=== PATIENT | male | born 1970 | race Caucasian/White ===

== ENCOUNTER 2017-07-30 20:26 | Inpatient (IN) | payer OTHER, SELFPAY ==
--- NOTE | 2017-07-30 22:50 | P.HP ---
Date of Service: 07/30/17 PC: This 46-year-old male went to the emergency room at another facility with severe abdominal pain for diagnosis and treatment. HPC: Patient noticed a lump today at his umbilicus. He was out picking up his granddaughter from school. Had an sudden onset of a bulge at his umbilicus which cause some excruciating pain. Went to the local emergency room. In the ER he was able to be reduced, but is diseased at the pop back out causing him increasing pain and discomfort. He was transferred to this facility as they did not have surgical capabilities at that time. Since then he has been relatively pain-free, the hernia has stayed in, and he is anxious to have it repaired. PMH: Hypertension PSHx: Previous rotator cuff muscle surgery SOC: No known allergies SYS REVIEW: No cough, wheeze, shortness of breath. No chest pain or palpitations. Good exercise tolerance. Says he can walk at least 2-3 miles. Denies any urinary complaints. No hesitancy or dribbling. O/E awake alert comfortable HEENT: Within normal limit Chest: Chest movement equal bilateral ABD: Soft nontender hernia is reduced at the moment. LOCO: Intact DATA: Within normal limits IMPRESSION: Umbilical hernia PLAN: I will take him to the operating room in the morning for a laparoscopic repair of his umbilical hernia with mesh. The risks of this procedure have been discussed. The possibility of bleeding, infection, injury to bowel and blood vessels has been described. The possibility of recurrence and need for further surgeries and procedures was discussed. Mesh infection and its removal were explained. He understands and wants to proceed.
[2017-07-30] MEDS ORDERED: ONDANSETRON 4 MG/2 ML VIAL IV PRN (22:53)
[2017-07-30] MEDS ORDERED: CHLORHEXIDINE GLUCO 4% 120 ML TOP SCH (23:00)
[2017-07-30] MEDS ORDERED: CEFAZOLIN/NS 1gm 1 GM/50 ML BAG IVPB SCH (23:00)
[2017-07-30] MEDS: Ringers Lactate 1,000 ML IV SCH (23:00)
[2017-07-31] MEDS: Ringers Lactate 1,000 ML IV SCH ×2 (03:43→07:00)
[2017-07-31] MEDS: MORPHINE 4 MG/ML SYR IV PRN ×4 (06:17→20:33)
[2017-07-31] MEDS ORDERED: CEFAZOLIN/SWI 1gm 1 GM/10 ML SYR ONE (09:23)
[2017-07-31] MEDS ORDERED: PROPOFOL 200 MG/20 ML VIAL IV ONE (09:57)
[2017-07-31] MEDS ORDERED: FENTANYL CITR 100 MCG/2 ML ONE ×2 (09:57→11:08)
[2017-07-31] MEDS ORDERED: ROCURONIUM 50 MG/5 ML VIAL IV ONE (09:57)
[2017-07-31] MEDS ORDERED: KETOROLAC 30 MG/ML INJ ONE (11:17)
[2017-07-31] MEDS ORDERED: DEXAMETHASONE 10 MG/ML VIAL ONE (11:18)
[2017-07-31] MEDS ORDERED: GLYCOPYRROLATE 0.2 MG/ML SYR ONE ×2 (11:18→11:25)
[2017-07-31] MEDS ORDERED: NEOSTIGMINE 1 MG/ML -5 ML SYRINGE ONE (11:25)
[2017-07-31] MEDS ORDERED: MEPERIDINE HCL 25 MG/0.5 ML ONE ×2 (12:06→12:53)
[2017-07-31] MEDS: MEPERIDINE HCL 50 MG/ML AMP ONE ×4 (12:20→12:44)
--- NOTE | 2017-07-31 12:30 | P.OP ---
Preoperative diagnosis: Incarcerated umbilical hernia Postoperative diagnosis: The same Primary procedure: Laparoscopic reduction repair of incarcerated umbilical hernia Secondary procedure: Repair with mesh Anesthesia: General Estimated blood loss: Less than 10 cc Operative Technique: The patient brought the operating room and placed supine on the table. After the induction of adequate general endotracheal anesthesia, the area of the abdomen was prepped with a DuraPrep solution, and he was draped in usual aseptic manner. A left upper quadrant skin incision was made 3 fingers breath below the costal margins. This brought down through the skin and subcutaneous tissue. Using the Visiport we able to enter the peritoneal cavity and created pneumoperitoneum to approximately 12 mm of mercury. Under direct vision a 5 mm trocar was placed in left lower quadrant. Attention was now turned towards the anterior abdominal wall. We could see a piece omentum that had gone into the hernia at the umbilicus. It was firm was stuck in place. Applying gentle traction and extra pressure we were able to reduce this back into the peritoneal cavity. At this point the hernia sac was also invagination into the peritoneal cavity and tacked to the anterior abdominal wall secure eaten placing keeping it reduced. A piece of 6 inch circular mesh was now marked and introduced to the peritoneal cavity. Stay sutures had been placed on the pulse. Using the Endo Close is allowed us to lift the mass to the anterior surface of the anterior abdominal wall. We were able to get good coverage ever hernial defect. The Tacker was then used to fix the mesh to the anterior abdominal wall. This was done by reducing the pressure of the intra-abdominal cavity to approximately 5 mm of Hg. Good coverage having been obtained, the 10 mm trocar was approximated using the Endo Close an absorbable suture. The suture was now tied, the pneumoperitoneum car collapse, and cat applied to the skin. At the end of the procedure he was stable when sent to the recovery room. Needle sponge instrument count were correct. No drains were placed. Complications: None Implants: 6 inches circular mesh Transferred to: Recovery Room Condition: Good
[2017-07-31] MEDS: HYDROCODONE/APAP 7.5/325 MG TAB PO PRN (21:35)
[2017-08-01] MEDS: HYDROCODONE/APAP 7.5/325 MG TAB PO PRN ×3 (02:26→10:21)
--- NOTE | 2017-08-01 10:59 | P.DS ---
Admission Date: 07/30/17 Discharge Date: 08/01/17 Disposition: ROUTINE DISCHARGE Discharge Condition: GOOD Reason for Admission: Abdominal pain Procedures: Laparoscopic reduction repair of incarcerated umbilical hernia with mesh Brief History of Present Illness: Patient presented another facility with severe abdominal pain and a mass in his umbilicus. It was reduced but quickly recurred after reduction. He was transferred to our facility for definitive care. Hospital Course: The patient was admitted to the hospital. After being observed and ensuring that his pain did not increase, he was brought to the operating room for laparoscopic reduction repair of this incarcerated umbilical hernia. He tolerated the procedure well and was admitted for postoperative pain control. Today he is up ambulating, tolerating a diet, and his pain is controlled on oral medication. He is deemed fit for discharge. Vital Signs/Physical Exam: Temp Pulse Resp BP Pulse Ox 98.2 F 65 16 124/69 97 08/01/17 08:00 08/01/17 08:00 08/01/17 08:00 08/01/17 08:00 08/01/17 08:00 Home Medications: Amlodipine Besylate/Benazepril [Amlodipine-Benazepril 5-20 mg] 1 each PO DAILY 07/31/17 Atorvastatin Calcium [Lipitor] 10 mg PO DAILY 07/31/17 Montelukast [Singulair] 10 mg PO DAILY 07/31/17 Followup: Sixto Tyson MD [ACTIVE - CAN ADMIT] - (follow up in office on Wednesday, August 06. Call office to schedule appointment.)
== END 2017-08-01 12:06 | disposition home or self-care (01) | DRG 355 ==
LOC: 4TH 20:58
PROVIDERS: ADMIT Surgery; ATTEND Surgery
PROC: 0WUF4JZ Supplement Abdominal Wall with Synthetic Substitute, Percutaneous Endoscopic Approach (ICD-10-PCS; principal; 2017-07-31 10:00)
DX: K42.0 Umbilical hernia with obstruction, without gangrene (principal); I10 Essential (primary) hypertension
CPT/HCPCS: J0690; J1100; J2175; J2710; J3010

== ENCOUNTER 2019-11-06 09:48 | Emergency (ER) | payer OTHER ==
--- OUTSIDE RECORDS SUMMARY | 2019-11-06 10:08 | XMS REPORT | Clinical Summary ---
:1970 Author Organization [facility] Address [address] [place] [address] Care Team Providers Name Role Phone Ryan Dunne Primary Care Provider Allergies No Known Allergies Medications Medication Sig Dispensed Refills Start Date End Date Status amLODIPine-benazepri Take 1 capsule 0 Active l (LOTREL 5-20) 5-20 by mouth every mg per capsule morning . atorvastatin Take 20 mg by 0 Act hannah (LIPITOR) 20 MG mouth daily. tablet pyrilamine-dextromet Take by mouth 0 Active horphan (CAPRON DMT) daily . 30-30 mg Tab metFORMIN Take 500 mg by 0 Activ e (GLUCOPHAGE) 500 MG mouth 2 (two) tablet times daily with breakfast and dinner. omeprazole Take 40 mg by 0 Activ e (PRILOSEC) 40 MG mouth 2 (two) capsuleIndications: times daily. an ulcer of the duodenum ondansetron Take 1 tablet 30 tablet 0 11/25/2018 Act hannah (ZOFRAN-ODT) 4 MG (4 mg total) disintegrating by mouth every tablet 8 (eight) hours as needed for Nausea. sucralfate Take 1 tablet 120 tablet 1 12/02/2018 Act hannah (CARAFATE) 1 gram (1 g total) by 0 tablet mouth 4 (four) times daily. viscous lidocaine 2% Swish and 100 mL 0 12/02/2018 Active (VISCOUS LIDOCAINE) swallow 10 mLs 2 % Soln mucosal every 6 (six) solution hours as needed (throat/esopha geal pain). buprenorphine HCl Place 150 mcg 0 11/24/19 1 Discontinued (BELBUCA) 150 mcg inside cheek 2 9 Film (two) times daily. HYDROcodone-acetamin Take 1 tablet 0 11/25 Discontinued ophen (NORCO 10-325) by mouth every 9 10-325 mg per tablet 6 (six) hours as needed for Pain. HYDROcodone-acetamin Take 1 tablet 15 tablet 0 11/25/201811/14 Discontinued ophen (NORCO 10-325) by mouth every 9 10-325 mg per tablet 6 (six) hours as needed for Pain. Max Daily Amount: 4 tablets viscous lidocaine 2% Swish and 100 mL 0 11/25/2018 12/03/19 1 Discontinued (VISCOUS LIDOCAINE) swallow 10 mLs 9 2 % Soln mucosal every 6 (six) solution hours as needed (throat/esopha geal pain). aluminum & magnesium Take 30 mLs by 355 mL 0 12/02/2018 Discontinued hydroxide-simethicon mouth every 6 9 e (MAALOX PLUS) (six) hours as 400-400-40 mg/5 mL needed for up suspension to 10 days. predniSONE Take 1 tablet 25 tablet 0 12/03/2018 Disc ontinued (DELTASONE) 20 MG (20 mg total) 9 tablet by mouth daily for 25 days. sucralfate Take 1 tablet 120 tablet 1 12/02/2018 Dis continued (CARAFATE) 1 gram (1 g total) by 9 tablet mouth 4 (four) times daily. traMADol (ULTRAM) 50 Take 1 tablet 30 tablet 0 12/02/201811/15 mg tablet (50 mg total) 9 by mouth every 6 (six) hours as needed for up to 10 days. Max Daily Amount: 200 mg calcium carbonate Take 2 tablets 90 tablet 0 12/02/2018 Discontinued (TUMS) 500 mg (1,000 mg 9 chewable tablet total) by mouth 3 (three) times daily as needed for up to 30 days. HYDROcodone-acetamin Take 1 tablet 20 tablet 0 12/02/201811/14 Discontinued ophen (NORCO 10-325) by mouth every 9 10-325 mg per tablet 6 (six) hours as needed for Pain. Max Daily Amount: 4 tablets aluminum & magnesium Take 30 mLs by 355 mL 0 12/02/2018 hydroxide-simethicon mouth every 6 9 e (MAALOX PLUS) (six) hours as 400-400-40 mg/5 mL needed for up suspension to 10 days. calcium carbonate Take 2 tablets 90 tablet 0 12/02/2018 (TUMS) 500 mg (1,000 mg 9 chewable tablet total) by mouth 3 (three) times daily as needed for up to 30 days. predniSONE Take 1 tablet 25 tablet 0 12/03/2018 Disc ontinued (DELTASONE) 20 MG (20 mg total) 9 tablet by mouth daily for 25 days. ondansetron Take 1 tablet 20 tablet 0 12/02/2018 Dis continued (ZOFRAN-ODT) 4 MG (4 mg total) 9 disintegrating by mouth every tablet 8 (eight) hours as needed for up to 7 days. predniSONE Take 1 tablet 25 tablet 0 12/03/2018 Expi red (DELTASONE) 20 MG (20 mg total) 9 tablet by mouth daily for 25 days Take 20 mg for 2 weeks followed by 10 mg for 2 weeks. HYDROcodone-acetamin Take 1 tablet 20 tablet 0 12/02/201811/14 ophen (NORCO by mouth every 9 7.5-325) 7.5-325 mg 6 (six) hours per tablet as needed for Pain for up to 7 days. Max Daily Amount: 4 tablets Active Problems Problem Noted Date Esophageal adenocarcinoma 11/24/2018 Encounters Date Type Specialty Care Team Description 01/04/2019 Refill Internal Medicine Renny Murguia MD 11/28/2018 [facility], Esophageal adenocarcinoma (HCC) (Primary Dx); - Encounter Medicine Elsie Dysphagia, unsp ecified type; 12/02/2018 MD Harsha Remy's esophagus with dysplasia; Stephanie Caro MD Odynophagia 11/24/2018 Anesthesia Event Gastroenterology Sonya Henson GRNA 11/24/2018 Surgery Gastroenterology [facility], UPPER [facility] ENDOSCOPY,SUB MUCOSAL MD Kenneth RESECTION 11/24/2018 [facility], Esophageal - Encounter Medicine [facility] adenocarcinom a (HCC) 11/25/2018 MD Shantal Cooper Fang-Ying, MD 11/24/2018 Travel 11/23/2018 Hospital Pre-Admission Testing Encounter after 11/05/2018 Social History Tobacco Use Types Packs/Day Years Used Date Former Smoker Quit: 03/25/19 14 Smokeless Tobacco: Former User Chew Q uit: 03/15/2013 Tobacco Cessation: Counseling Given: No Comments: quitted 2013 Alcohol Use Drinks/Week oz/Week Comments No Alcohol Habits Answer Date Recorded How often do you have a drink containing alcohol? Never 10/10/2018 How many drinks containing alcohol do you have on a typical Not asked day when you are drinking? How often do you have six or more drinks on one occasion? No t asked Sex Assigned at Date Recorded Not on file Job Start Date Occupation Industry Not on file Not on file Not on file Travel History Travel Start Travel End No recent travel history available. Last Filed Vital Signs Vital Sign Reading Time Taken Blood Pressure 167/90 12/02/2018 12:00 PM CDT Pulse 82 12/02/2018 12:00 PM CDT Temperature 36.6 C (97.8 F) 12/02/2018 12:00 PM CDT Respiratory Rate 18 12/02/2018 12:00 PM CDT Oxygen Saturation 96% 12/02/2018 12:00 PM CDT Inhaled Oxygen Concentration - - Weight 130.4 kg (287 lb 6.4 oz) 11/28/2018 5:1 4 PM CDT Height 185.4 cm (6' 1") 11/28/2018 5:14 PM CDT Body Mass Index 37.92 11/28/2018 5:14 PM CDT Plan of Treatment Not on file Procedures Procedure Name Priority Date/Time Associated Comments Diagnosis POCT-GLUCOSE METER Routine 12/01/2018 11:04 Resul ts for this PM CDT procedure are i n the results section. POCT-GLUCOSE METER Routine 12/01/2018 6:14 Resul ts for this PM CDT procedure are i n the results section. POCT-GLUCOSE METER Routine 12/01/2018 12:34 Resul ts for this PM CDT procedure are i n the results section. POCT-GLUCOSE METER Routine 12/01/2018 7:37 Resul ts for this AM CDT procedure are i n the results section. BASIC METABOLIC PANEL Routine 12/01/2018 5:42 Re sults for this (7) AM CDT procedure are i n the results section. POCT-GLUCOSE METER Routine 11/30/2018 8:21 Resul ts for this PM CDT procedure are i n the results section. POCT-GLUCOSE METER Routine 11/30/2018 1:00 Resul ts for this PM CDT procedure are i n the results section. CBC W/PLT COUNT & AUTO STAT 11/30/2018 10:32 R esults for this DIFFERENTIAL AM CDT procedure are i n the results section. COMPREHENSIVE STAT 11/30/2018 10:32 Results fo r this METABOLIC PANEL AM CDT procedure ar e in the results section. CBC W/PLT COUNT & AUTO STAT 11/30/2018 10:32 R esults for this DIFFERENTIAL AM CDT procedure are i n the results section. POCT-GLUCOSE METER Routine 11/30/2018 8:35 Resul ts for this AM CDT procedure are i n the results section. POCT-GLUCOSE METER Routine 11/29/2018 10:21 Resul ts for this PM CDT procedure are i n the results section. POCT-GLUCOSE METER Routine 11/29/2018 6:07 Resul ts for this AM CDT procedure are i n the results section. BASIC METABOLIC PANEL Routine 11/29/2018 5:21 Re sults for this (7) AM CDT procedure are i n the results section. URINALYSIS W/ REFLEX Routine 11/29/2018 12:40 Res ults for this URINE CULTURE AM CDT procedure are in the results section. BLOOD CULTURE Routine 11/28/2018 6:53 Results fo r this PM CDT procedure are i n the results section. BLOOD CULTURE Routine 11/28/2018 6:27 Results fo r this PM CDT procedure are i n the results section. CBC W/PLT COUNT & AUTO Routine 11/28/2018 6:26 R esults for this DIFFERENTIAL PM CDT procedure are i n the results section. LACTIC ACID, VENOUS Routine 11/28/2018 6:26 Resu lts for this PM CDT procedure are i n the results section. HEMOGLOBIN A1C Routine 11/28/2018 6:26 Results f or this PM CDT procedure are i n the results section. PT/APTT Routine 11/28/2018 6:26 Results for this PM CDT procedure are i n the results section. BASIC METABOLIC PANEL Routine 11/28/2018 6:26 Re sults for this (7) PM CDT procedure are i n the results section. CBC W/PLT COUNT & AUTO Routine 11/28/2018 6:26 R esults for this DIFFERENTIAL PM CDT procedure are i n the results section. XR CHEST 1 VIEW STAT 11/28/2018 6:02 Results for this PORTABLE/BEDSIDE PM CDT procedure a re in the results section. ECG 12-LEAD Routine 11/28/2018 5:36 Results for this PM CDT procedure are i n the results section. POCT-GLUCOSE METER Routine 11/25/2018 7:36 Resul ts for this AM CDT procedure are i n the results section. HEPATIC FUNCTION PANEL Routine 11/25/2018 5:03 R esults for this AM CDT procedure are i n the results section. BASIC METABOLIC PANEL Routine 11/25/2018 5:03 Re sults for this (7) AM CDT procedure are i n the results section. CBC (HEMOGRAM ONLY) Routine 11/25/2018 4:57 Resu lts for this AM CDT procedure are i n the results section. POCT-GLUCOSE METER Routine 11/24/2018 9:36 Resul ts for this PM CDT procedure are i n the results section. FL ESOPHAGUS PHARNYX STAT 11/24/2018 3:05 Res ults for this AND/OR CERVICAL PM CDT procedure ar e in the results section. REPORT OF PROCEDURE - 11/24/2018 11:58 ENDOSCOPY URL AM CDT POCT-GLUCOSE METER Routine 11/24/2018 11:55 Resul ts for this AM CDT procedure are i n the results section. TISSUE EXAM AP Routine 11/24/2018 11:34 Results for this AM CDT procedure are i n the results section. UPPER 11/24/2018 7:30 [facility] ENDOSCOPY,SUBMUCOSAL AM CDT esophagus with INJECTION dysplasia UPPER 11/24/2018 7:30 [facility] ENDOSCOPY,SUBMUCOSAL AM CDT esophagus with RESECTION dysplasia POCT-GLUCOSE METER Routine 11/24/2018 7:15 Resul ts for this AM CDT procedure are i n the results section. after 11/05/2018 Results POC-Glucose meter (12/01/2018 11:04 PM CDT)Only the most recent of13 results within the time period is included. POC-Glucose Meter 181 (H)Comment: TESTED AT 70 - 110 mg/dL [facility] [address] [facility] [id number] Specimen Blood Performing Organization Address City/State/Zipcode Phone Number [facility] [address] [place] [address] CENTER Basic metabolic panel (12/01/2018 5:42 AM CDT)Only the most recent of4 results within the time period is included. Sodium 140 136 - 145 meq/L [facility] Potassium 3.6 3.5 - 5.1 meq/L [facility] Chloride 105 98 - 107 meq/L [facility] CO2 25 22 - 29 meq/L [facility] BUN 10 7 - 21 mg/dL [facility] Creatinine 0.97 0.57 - 1.25 mg/dL [facility] Glucose 159 (H) 70 - 105 mg/dL [facility] Calcium 9.2 8.4 - 10.2 mg/dL [facility] EGFR 82Comment: ESTIMATED GFR IS mL/min/1.73 sq m [facility] NOT ACCURATE CREATININE [facility] CLEARANCE IN PREDICTING GLOMERULAR FILTRATION RATE. ESTIMATED GFR IS NOT APPLICABLE FOR DIALYSIS PATIENTS. Specimen Blood Performing Organization Address City/State/Zipcode Phone Number [facility] [address] [place], [place] [id number] [place] CBC with platelet count + automated diff (11/30/2018 10:32 AM CDT)Only the most recent of2 resultswithin the time period is included. WBC 7.4 3.5 - 10.5 K/L [facility] RBC 5.09 4.63 - 6.08 M/L [facility] Hemoglobin 13.5 (L) 13.7 - 17.5 GM/DL [facility] Hematocrit 42.7 40.1 - 51.0 % [facility] MCV 83.9 79.0 - 92.2 fL [facility] MCH 26.5 25.7 - 32.2 [address] [facility] MCHC 31.6 (L) 32.3 - 36.5 GM/DL [facility] RDW 14.5 (H) 11.6 - 14.4 % [facility] Platelets 225 150 - 450 K/CU MM [facility] MPV 10.3 9.4 - 12.4 fL [facility] nRBC 0 0 - 0 /100 WBC [facility] % Neutros 74 % [facility] % Lymphs 18 % [facility] % Monos 6 % [facility] % Eos 1 % [facility] % Baso 1 % [facility] # Neutros 5.48 (H) 1.78 - 5.38 K/L [facility] # Lymphs 1.37 1.32 - 3.57 K/L [facility] # Monos 0.47 0.30 - 0.82 K/L [facility] # Eos 0.04 0.04 - 0.54 K/L [facility] # Baso 0.05 0.01 - 0.08 K/L [facility] Immature Granulocytes-Relative 0 0 - 1 % C HI [facility] Specimen Blood Performing Organization Address City/State/Zipcode Phone Number [facility] [address] [place] [address] CENTER Comprehensive metabolic panel (11/30/2018 10:32 AM CDT) Protein, Total 7.7 6.0 - 8.3 gm/dL [facility] Albumin 4.5 3.5 - 5.0 g/dL [facility] Alkaline Phosphatase 109 40 - 150 U/L [facility] Total Bilirubin 0.5 0.2 - 1.2 mg/dL [facility] Sodium 137 136 - 145 meq/L [facility] Potassium 3.3 (L) 3.5 - 5.1 meq/L [facility] Chloride 103 98 - 107 meq/L [facility] CO2 24 22 - 29 meq/L [facility] BUN 10 7 - 21 mg/dL [facility] Creatinine 1.02 0.57 - 1.25 mg/dL [facility] Glucose 160 (H) 70 - 105 mg/dL [facility] Calcium 9.1 8.4 - 10.2 mg/dL [facility] AST 11 5 - 34 U/L [facility] ALT 15 6 - 55 U/L [facility] EGFR 78Comment: ESTIMATED GFR mL/min/1.73 sq m [facility] IS NOT ACCURATE [facility] CREATININE CLEARANCE IN PREDICTING GLOMERULAR FILTRATION RATE. ESTIMATED GFR IS NOT APPLICABLE FOR DIALYSIS PATIENTS. Specimen Blood Performing Organization Address City/State/Zipcode Phone Number [facility] [address] [place] [address] CENTER Urinalysis w/Microscopic + Reflex to Culture (11/29/2018 12:40 AM CDT) Color, UA Yellow [facility] Clarity, UA Clear [facility] Specific [place], UA 1.050 (H) 1.001 - 1.035 [facility] pH, UA 6.0 5.0 - 8.0 [facility] Protein, UA 20 mg/dL (A) Negative [facility] Glucose, UA Negative Negative [facility] Ketones, UA 10 mg/dL (A) Negative [facility] Bilirubin, UA Negative Negative [facility] Blood, UA Negative Negative [facility] Nitrite, UA Negative Negative [facility] Leukocytes, UA Negative Negative [facility] Urobilinogen, UA 0.2 0.2 - 1.0 mg/dL [facility] RBC, UA 0 /HPF [facility] WBC, UA 7 /HPF [facility] Bacteria, UA Rare [facility] Mucus Many [facility] Specimen Source [facility] Specimen Urine Performing Organization Address City/State/Zipcode Phone Number [address] [address] [place] Blood Culture - Routine (Left Venipuncture) (11/28/2018 6:53 PM CDT)Only the most recent of2 resultswithin the time period is included. Result No growth in 5 days [facility] Specimen Blood Performing Organization Address City/[facility]/Zipcode Phone Number [address] [address] CENTER PT/aPTT (11/28/2018 6:26 PM CDT) Protime 13.3 11.9 - 14.2 seconds [facility] INR 1.1 <=5.9 [facility] PTT 31.5 22.5 - 36.0 seconds [facility] Specimen Blood Narrative Performed At Effective 08/10/2018: PT Reference Range [facility] Change New: 11.9-14.2Previous: 11.7-14.7 RECOMMENDED COUMADIN/WARFARIN INR THERAPY RANGES STANDARD DOSE: 2.0-3.0Includes: PROPHYLAXIS for venous thrombosis, systemic embolization; TREATMENT for venous thrombosis and/or pulmonary embolus. HIGH RISK: Target INR is 2.5-3.5 for patients wiht mechanical heart valves. Performing Organization Address City/State/Zipcode Phone Number [address] [address] [place] Lactic acid, venous (11/28/2018 6:26 PM CDT) Lactate, Venous 0.9Comment: Specimen 0.5 - 2.2 mmol/L [facility] slightly hemolyzed [facility] Specimen Blood Performing Organization Address City/[facility]/Zipcode Phone Number [address] [address] [place] Hemoglobin A1c (11/28/2018 6:26 PM CDT) Hemoglobin A1C 6.6 (H) 4.3 - 6.1 % [facility] Specimen Blood Performing Organization Address City/[facility]/Zipcode Phone Number [address] [address] [place] XR chest 1 view portable / bedside (11/28/2018 6:02 PM CDT) Specimen Narrative Performed At FINAL REPORT [facility] TECHNIQUE: Frontal view of the chest. INDICATION: SOB. COMPARISON: None. FINDINGS: LINES/TUBES: None. LUNGS: Pulmonary does congestion. No con solidation or pulmonary edema. PLEURA: No pneumothorax or significant p leural effusion. HEART AND MEDIASTINUM: The cardiomediast inal silhouette is within normal limits. SOFT TISSUES AND BONES: Unremarkable. IMPRESSION: Pulmonary venous congestion. Signed: Jairo Araya MD Report Verified Date/Time:11/28/2018 18:30:16 Reading Location: [address] Room Procedure Note Interface, External Ris In - 11/28/2018 6:32 PM CDT FINAL REPORT TECHNIQUE: Frontal view of the chest. INDICATION: SOB. COMPARISON: None. FINDINGS: LINES/TUBES: None. LUNGS: Pulmonary does congestion. No con solidation or pulmonary edema. PLEURA: No pneumothorax or significant p leural effusion. HEART AND MEDIASTINUM: The cardiomediast inal silhouette is within normal limits. SOFT TISSUES AND BONES: Unremarkable. IMPRESSION: Pulmonary venous congestion. Signed: Jairo Araya MD Report Verified Date/Time: 11/28/2018 1 8:30:16 Reading Location: [facility] [id number] Consult R eading Room Performing Organization Address City/[facility] Phone Number [facility] RIS ECG 12 lead (11/28/2018 5:36 PM CDT) Specimen Narrative Performed At Ventricular Rate 66 BPM GE MUSE Atrial Rate 66 BPM P-R Interval 172 ms QRS Duration 112 ms Q-T Interval 418 ms QTC Calculation(Bazett) 438 ms P [place] -3 degrees R [place] -30 degrees T [place] -1 degrees Normal sinus rhythm Horizontal axis Otherwise normal ECG No previous ECGs available Confirmed by Perry JOHNSTON MICHAEL ([id number]) on 9 7:39:28 AM Procedure Note Interface, External Ris In - 11/29/2018 7:39 AM CDT Ventricular Rate 66 BPM Atrial Rate 66 BPM P-R Interval 172 ms QRS Duration 112 ms Q-T Interval 418 ms QTC Calculation(Bazett) 438 ms P [place] -3 degrees R [place] -30 degrees T [place] -1 degrees Normal sinus rhythm Horizontal axis Otherwise normal ECG No previous ECGs available Confirmed by Perry JOHNSTON MICHAEL ([id number]) on 11/29/2018 7:39:28 AM Performing Organization Address City/[facility] Phone Number [facility] MUSE Hepatic function panel (11/25/2018 5:03 AM CDT) Protein, Total 6.4 6.0 - 8.3 gm/dL [facility] Albumin 3.9 3.5 - 5.0 g/dL [facility] Total Bilirubin 0.5 0.2 - 1.2 mg/dL [facility] Bilirubin, Direct 0.2 0.1 - 0.5 mg/dL [facility] Alkaline Phosphatase 91 40 - 150 U/L [facility] AST 13 5 - 34 U/L [facility] ALT 21 6 - 55 U/L [facility] Specimen Blood Performing Organization Address City/[facility]/Zipcode Phone Number [facility] [address] [place] [address] [place] CBC (Hemogram only) (11/25/2018 4:57 AM CDT) WBC 12.4 (H) 3.5 - 10.5 K/L [facility] RBC 4.28 (L) 4.63 - 6.08 M/L [facility] Hemoglobin 11.4 (L) 13.7 - 17.5 GM/DL [facility] Hematocrit 37.0 (L) 40.1 - 51.0 % [facility] MCV 86.4 79.0 - 92.2 fL [facility] MCH 26.6 25.7 - 32.2 pg [facility] MCHC 30.8 (L) 32.3 - 36.5 GM/DL [facility] RDW 15.0 (H) 11.6 - 14.4 % [facility] Platelets 209 150 - 450 K/CU MM [facility] MPV 11.2 9.4 - 12.4 fL [facility] nRBC 0 0 - 0 /100 WBC [facility] Specimen Blood Performing Organization Address City/[facility]/Zipcode Phone Number [facility] [address] [place] [address] [place] esophagus (11/24/2018 3:05 PM CDT) Specimen Narrative Performed At FINAL REPORT GE RIS EXAM: Single contrast esophagram. INDICATION: 47-year-old man with chest p ain after endoscopic submucosal dissection. COMPARISON: None. IMPRESSION: No evidence of esophageal leak. Contour irregularity of the distal esoph zbigniew may be related to postprocedural changes and/or reported B arrett's esophagus. Please refer to endoscopy report for further de tails. Signed: Noah Khan MD Report Verified Date/Time:11/24/2018 15:46:32 Reading Location: [facility] 10th Flr Radiolog y Reading Room Procedure Note Interface, External Ris In - 11/24/2018 4:00 PM CDT FINAL REPORT EXAM: Single contrast esophagram. INDICATION: 47-year-old man with chest p ain after endoscopic submucosal dissection. COMPARISON: None. IMPRESSION: No evidence of esophageal leak. Contour irregularity of the distal esoph zbigniew may be related to postprocedural changes and/or reported B arrett's esophagus. Please refer to endoscopy report for further de tails. Signed: Noah Khan MD Report Verified Date/Time: 11/24/2018 1 5:46:32 Reading Location: [address] Reading Room Performing Organization Address City/State/Zipcode Phone Number GE RIS REPORT OF PROCEDURE - ENDOSCOPY URL (11/24/2018 11:58 AM CDT) Narrative Performed At This result has an attachment that is no t available. Tissue Exam (11/24/2018 11:34 AM CDT) Case Report Surgical Pathology Report Case: [id number] [facility] Authorizing Provider:Isaac Douglass Collected: 11/24/2018 1134 [facility] MD Kenneth [facility] Endoscopy Received:11/24/2018 1208 Services Pathologist: Kelsea Hathaway MD Specimen:Esophagus, Lower Esophageal Lesion: Remy's Esophagus ADDENDUM 2 CPT code added: [id number] [facility] ER ADDENDUM [facility] ALTH REASON FOR ADDENDUM: TO REPORT [id number] BIOMARKER RESULT [facility] HER2 by immunohistochemistry result Negative (score 0) FIXATION TIME FOR BIOMARKERS ASSESSMENT Collection date and time: 11/24/18 1134 Placed in fixative date and time: 11/24/18 1134 Removed from formalin date and time:11/25/18 092 0 The tissue was fixed in 10% neutral buffered formalin for a minimum of at least 6 hours and not longer than 72 hours. Her2 was assessed using antibodies for clones [id number] (FDA Approved [place]). HE R2 positive control was eval uated with test tissue. These control slides run alongside of the patient's sample show appropriate staining. The results are reported as follows: negative (score 0) when th ere is no reactivity or no m embranous reactivity in any cancer cells, negative (score 1) when cancer cell cluster of ?5 malignant cells have a faint or barely perceptible membranous reactivity irrespect hannah of percentage of cancer cells positive, equivocal (score 2) when cancer cell cluster of ?5 malignant cells have a weak to moderate complete, basolateral, or lateral membranous reactivity irrespectiv e of percentage of cancer ce lls positive and positive (score 3) when cancer cell cluster of ?5 malignant cells have a strong complete basolateral, or lateral membranous reactivity irrespective of percentage of cancer cells positive. Reference: Kieran M, Cuca O, Alia D, et al. Assessment of a HER2 scoring system for gastric cancer: results from a validation study. Histopathology. 2008;52(7):797-805 DIAGNOSIS A. ESOPHAGUS, LOWER ESOPHAGE AL LESION, ENDOSCOPIC SUBMUCOSAL DISSECTION: [facility] - INVASIVE ADENOCARCINOMA , MODERATE TO POORLY DIFFERENTIATE WITH SINGLE CELLS [facility] - MICROSCOPIC CALCULATED SIZE 3. 5x 2 CM x 0.2 CM - TUMOR INVADES THE SUPERF ICIAL SUBMUCOSA (1.2 mm out of 2 mm of submucosa or 1200 micron out of 2000micron) - PERINEURAL INVASION NOTED - NO DEFINITIVE LYMPHOVASCULAR INVASION IDENTI FIED - DEEP MARGIN AND LATERAL (MUCOSAL) MARGIN AR E CLEAR FOR INVASIVE ADENOCARCINOMA, (D EEP MARGIN LESS THAN 70 MICRON (0.07 MM) FROM THE DEEP MARGIN - PROXIMAL MUCOSAL MARGIN, POSITIVE FOR HIGH GRADE DYSPLASIA WITH CAUTERY ARTIFACT - AJCC PATHOLOGIC STAGE pT1B NX SJ/pl Signing Pathologist Direct Phone Line: [phone] COMMENT SJ/ew [facility] ALTH [facility] SYNOPTIC REPORT ESOPHAGUS(Esophagus - All Specimens) [facility] SPECIMEN Procedure:Endoscopic resection TUMOR Tumor Site:Dist al esophagus (low thoracic esophagus): as mentioned on requsititonform Relationship of Tumor to Esophagogastric Ju nction:Not specified Distance of Tumor Cente r from Esophagogastric Junction in Centimeters (cm):Cannot be determined Histologic Type:Adenocarcinoma Histologic Grade:G3: Poorly differe ntiated, undifferentiated Tumor Size:Elvis ot be determined: multifocal involving the are of 4 x 1.3 cm with largesst, microscopic calculated size 3.5 x 2 x 0.2 Tumor Extent (Note E): Tumor Extension:Tumor invades t he submucosa Accessory Findings: Treatment Effect:No known presu rgical therapy Lymphovascular Invasion:Not aldo ntified Perineural Invasion:Present MARGINS Margins: Mucosal Margin:Uninvolved by in vasive carcinoma Status of Dyspl kai at Mucosal Margin:Involved by high grade glandular dysplasia Deep Margin:Uninvolved by invas hannah carcinoma : Other Margin:Cannot be determin ed LYMPH NODES Regional Lymph Nodes:No lymph nodes sub mitted or found PATHOLOGIC STAGE CLASSIFICATION (pTNM, AJCC 8th Edition) Primary Tumor (pT):pT1b Regional Lymph Nodes (pN):pNX ADDITIONAL FINDINGS Additional Pathologic Findi ngs:Intestinal metaplasia (Remy's esophagus) Additional Pathologic Findings:Low-grad e glandular dysplasia Additional Pathologic Findings:High-gra de glandular dysplasia CPT Code(s) 43369 X1 [facility] ALTH 68471 X1 [facility] SPECIMEN SOURCE Received in one part "lower esophageal lesion, Remy's esophagus" [facility] Preoperative and postoperative diagnoses Remy 's esophagus with dysplasia [facility] GROSS DESCRIPTION Received in saline labeled w ith the patient's name, accession number and "esophagus" is an 8.3 x 4.9 x 0.1 cm irregular portion of tucker-red to pink mucosa pinned to a piece of styrofoam. One end of the s [facility] tyrofoam has an "O", which i s arbitrarily designated 12 o'clock. There is a 4.0 x 1.3 cm area of mucosal thinning extending from 3 o'clock to 8 o'clock. There are multiple pink-red nodules ranging 0.1-1 [facility] .0 cm. One nodule is 0.3 cm from the 12 o'clock margin, the largest nodule is 0.6 cm from the 1 o'clock margin, and another nodule is 0.5 cm from the 9 o'clock margin. The specimen is serially sectioned and entirely submitted sequ entially in A1-A31, one strip per cassette, embedded on edge. A diaphragm accompanied the specimen. Ink code: Blue-radial margin Black-deep margin CG/ew MICROSCOPIC DESCRIPTION The tumor isseen in A9 to A 15. The tumor show poorly differentiated tumor with single cell in the background of well differentiated tumor, high grade and low grade dysplasia and with infiltrative invasive pattern . [facility] The maximum depth of invasio n is on slide A13 with approximately 1.2 mm out of 2 mm of available submucosa. [facility] Deep and lateral margins are negative for inva sive carcinoma. Invasive adenocarcinoma is closest one slide to the deep margin on slice A12 reaching approximately 70 microns from the deep margin. Multiple areas of proximal margins are positive for high-grade dysplasia. CD31 immunostain was done on A10 and A14. No definitive lymphovascular invasion is noted. SPECIAL STUDIES The interpretation of this c ase included the use of immunohistochemistry or special stains. [facility] ER Control Slides Examined: In -house known positive controls were evaluated along with the test tissue. These control slides run alongside of the patients sample show appropriate staining. Internal posit hannah and negative controls when available are [place] [facility]ma Immunohistochemistry technic al testing was performed at [facility]ology Laboratory where it was developed and its performance characteristics were determined. It has not be en cleared or approved by [facility] [place]. Food and Drug Administration. The FDA has determined that such clearance or approval is not necessary. The test is used for clinical purposes. It should not be regarde d as investigational or for research. This laboratory is certified under the Clinical Laboratory Improvement Amendments of 1988 (CLIA-88) as qualified to perform high complexity clinical laboratory testing. Specimen Tissue Performing Organization Address City/State/Zipcode Phone Number [facility] [address] [place] [address] CENTER after 11/05/2018 Insurance Payer Benefit Plan / Group Subscriber ID Type Phone A ddress [employer] - [employer] CARE [employer] HMO/POS/OPEN ACCESS xxxxxxxxxxx HMO/POS Advance Directives For more information, please contact:[place] [phone] [place], [place] [phone] Code Status Date Activated Date Inactivated Comments Full Code 11/28/2018 5:17 PM 12/02/2018 5:27 PM This code status was determined by: Patient Full Code 11/24/2018 6:47 PM 11/25/2018 1:28 PM This code status was determined by: Patient
--- OUTSIDE RECORDS SUMMARY | 2019-11-06 10:13 | XMS REPORT | Continuity of Care Document ---
:1970 Author Organization [facility] t Address [address] [place] [address] Care Team Providers Name Role Phone Jaswinder CALVIN Primary Care Physician Unavailable Jaswinder CALVIN Attending Clinician Unavailable Aaron NIEVES Attending Clinician Unavailable Jaswinder Calvin MD Attending Clinician Aaron Preston Attending Clinician Nino ZELAYA Attending Clinician Jorge ZELAYA Attending Clinician Jackson ZELAYA Attending Clinician Jett ZELAYA Chi Attending Clinician Pa HERNÁNDEZ, D Attending Clinician Juan KUMARI Attending Clinician Gopal Mcclain MD Attending Clinician Dashawn ZELAYA Attending Clinician Tino HERNÁNDEZ Attending Clinician Unavailable López Attending Clinician Unavailable Jordi ZELAYA Attending Clinician Shantal ZELAYA Attending Clinician Can ZELAYA Attending Clinician Alexei ZELAYA Attending Clinician Unavailable Vivek Attending Clinician Ernesto ZELAYA Attending Clinician Shaik EDGAR, B Attending Clinician Motta RN, E Attending Clinician Unavailable Kenneth FARFAN, A Attending Clinician Shayna RN, S Attending Clinician Unavailable Angeles Curtis MD Attending Clinician MI ROSADO Attending Clinician Unavailable Mi Rosado MD Attending Clinician [phone] Nia ZELAYA Attending Clinician Neo CHAVEZ Attending Clinician Michael HERNÁNDEZ Attending Clinician Unavailable GE SUBRAMANIAN Attending Clinician Unavailable Ge Subramanian MD Attending Clinician Juan Gordon Attending Clinician DR CHEL Attending Clinician Unavailable NIA Admitting Clinician Unavailable GE SUBRAMANIAN Admitting Clinician Unavailable DR CHEL Admitting Clinician Unavailable Payers Payer Name Policy Type Policy Number Effective Date Expiration Date Brayan llanos [employer]IG[employer] HMO POS [id number] 2017 OPEN ACCESS 00:00:00 CIGNA - MGD xxxxxxxxxxx [facility] - Medical HMO/POS/OPEN Center ACCESSxxxxxxxxx xxHMO/POS Problems Condition Condition Condition Status Onset Resolution Last Treating Co mments Source Name Details Category Date Date Treatment Clinician Date Hypertensi Hypertensi Disease Active M D on on 12-12 Anderso 00:00: n 00 Remy's Remy's Disease Active esophagus esophagus 12-12 José Luis rso 00:00: n 00 Esophageal Esophageal Disease Active Overview : cancer cancer 11-30 Added Anderso 00:00: automatic n 00 ally from request for surgery [id number] [facility] t & Plan: 48 year-old with 10 month postopera tive follow-up Mitesh Shelton esophagec constantin by Dr. Timothy Calvin 11/2018. Surgical pathology demonstra alisha T1a N0 adenocarc inoma. This was early stage lung cancer treated with ESR with no induction chemother apy or radiation treatment . His radiograp hic imaging demonstra mike no evidence of recurrenc e. Reassuran ce given to the right abdominal incision with a nylon stitch. We recommend continued close surveilla nce and see him back in follow-up in [address] of his chest. Esophageal Esophageal Disease Active [facility] adenocarci adenocarci 11-24 Jannette kes - noma noma 00:00: Medical 00 Center History of Past Illness Condition Condition Condition Status Onset Resolution Last Treating Co mments Source Name Details Category Date Date Treatment Clinician Date Unable to Unable to Disease Resolve 2019-08-08 2019-08-08 control control d 03-15 00:00:00 20:33:24 José Luis rso bolus of bolus of 00:00: n food food 00 Acute Acute Disease Resolve 2019-08-08 2019-08-08 postoperat postoperat d 00:00:00 20:33:22 Anderso hannah pain hannah pain n Dysphagia Dysphagia Disease Resolve 2019-01-02 2019-01-02 d 12-12 00:00:00 18:48:31 Abner o 00:00: n 00 Dehydratio Dehydratio Disease Resolve 2019-01-02 2019-01-02 n n d 12-12 00:00:00 18:30:21 Abner o 00:00: n 00 Acute Acute Disease Resolve 2019-01-02 2019-01-02 abdominal abdominal d 00:00:00 18:30:25 Anderso pain pain n Other Other Disease Resolve 2019-01-02 2019-01-02 acute acute d 00:00:00 18:30:26 Abner o postoperat postoperat n hannah pain hannah pain Allergies, Adverse Reactions, Alerts This patient has no known allergies or adverse reactions. Family History Family Member Diagnosis Comments Start Date Stop Date Source Family member Cancer MD Jacobson Social History Social Habit Start Date Stop Date Quantity Comments Source History SDOH [facility] History SDOH [facility] - Alcohol Binge Medical [facility] Sex Assigned At M MD Levine on Cigarettes smoked 2019-03-17 2019-03-17 MD José Luis coleman current (pack per 00:00:00 00:00:00 day) - Reported Cigarette 2019-03-17 2019-03-17 MD Jacobson pack-years 00:00:00 00:00:00 Tobacco use and 2019-03-17 2019-03-17 Former user MD Valenzuela son exposure 00:00:00 00:00:00 Alcohol intake 2019-03-17 2019-03-17 Ex-drinker MD Eve peter 00:00:00 00:00:00 (finding) Alcohol Comment 2018-12-05 2018-12-05 3 years MD Levine on 00:00:00 00:00:00 Tobacco Comment 2018-11-23 2018-11-[address] [facility] - 00:00[facility]00 00[facility]00:00 Medical Center History SDOH 2018-10-10 2018-10-[address] [facility] - Alcohol Frequency 00:00:00 00:00:00 Medical Center History of tobacco 1987-03-15 2013-03-15 Current smoker MD Jacobson use 00:00:00 00:00:00 Smoking Status Start Date Stop Date Source Former smoker 2019-03-17 00:00:2019-03-17 00:00:00 MD Nicolas silveira Medications Ordered Filled Start Stop Current Ordering Indication Dosage Frequency Signature Comments Components Source Medication Medication Date Date Medication? Clinician (SIG) Name Name DULoxetine Yes 60mg Take 60 mg M D (CYMBALTA) 6-15 by mouth Nicolas so 60 mg 00:00: twice n capsule 00 daily. omeprazole Yes 40mg Take 40 mg M D (PriLOSEC) 6-15 by mouth Nicolas so 40 MG 00:00: twice n capsule 00 daily. omeprazole 2019- No Esophageal 40mg Take 1 MD (PriLOSEC) 03-16 02 cancer capsule And erso 40 MG 00:00: 05:59 (40 mg) by n capsule 00 :00 mouth 2 (two) times a day before meals for 30 days. Take 40 mg twice daily for 8 weeks, then decrease to once definitely until further advised by Gastroente rology. ondansetron 2018-03- No 4mg Dissolve 4 MD (ZOFRAN-ODT 2-30 12-30 mg on the An derso ) 4 mg 18:13: 00:00 tongue n disintegrat 17 :00 every 8 ing tablet (eight) hours as needed for nausea. tiZANidine 2018-03- No 4mg Take 4 mg M D (ZANAFLEX) 04-2306 by mouth José Luis rso 4 mg tablet 00:00: 00:00 twice n 00 :00 daily. HYDROcodone 2018-03- No Acute 1{tbl} Take 1 MD -acetaminop 1-20 07-06 postoperati tablet by Anderslindsey hen (NORCO) 00:00: 00:00 ve pain mouth 2 n 5 mg-325 mg 00 :00 (two) per tablet times a day as needed for severe pain. tiZANidine 2018-03- No Acute 2mg Take 1 MD (ZANAFLEX) 1-20 12-21 postoperati capsule (2 Anderso 2 MG 00:00: 05:59 ve pain mg) by n capsule 00 :00 mouth 3 (three) times a day for 30 days. gabapentin 2018-03- No Cancer 900mg Take 1.5 MD (NEURONTIN) 1-15 12-30 associated tablets Anderso 600 mg 00:00: 00:00 pain (900 mg) n tablet 00 :00 by mouth twice daily. Take 2 tablets (1200mg) nightly ondansetron 2018-03 Yes Nausea 8mg Dissolve 2 MD (ZOFRAN 1-11 tablets (8 Abner o ODT) 4 mg 00:00: mg) on the n disintegrat 00 tongue ing tablet every 8 (eight) hours as needed for nausea. methadone 2018-03- No Postoperati 2.5mg Take half MD (DOLOPHINE) 1- 11-20 ve pain of a José Luis rso 5 mg tablet 00:00: 00:00 tablet n 00 :00 (2.5 mg) by mouth every 8 (eight) hours for 30 days. amitriptyli 2018-03- No Acute Apply MD ne 2%, 0-30 12-30 postoperati topically Anderso ketamine 00:00: 00:00 ve pain to n 5%, 00 :00 affected lidocaine area(s) 3 5% in (three) VANICREAM times a (AMB-CMPD) day over symptomati c scars lidocaine 2018-03- No Acute 1[in_us Apply 1 MD (ANECREAM5) 0-30 12-30 postoperati ] inch Anderso 5 % cream 00:00: 00:00 ve pain topically n 00 :00 3 (three) times a day as needed (local pain). baclofen 2018-03- No Cancer 10mg Take 1 MD (LIORESAL) 0-30 11-20 associated tablet (10 Anderso 10 mg 00:00: 00:00 pain mg) by n tablet 00 :00 mouth every 8 (eight) hours. gabapentin 2018-03- No Cancer 900mg Take 1 and MD (NEURONTIN) 0-30 11-15 associated a half Anderso 600 mg 00:00: 00:00 pain tablets n tablet 00 :00 (900 mg) by mouth 3 (three) times a day. HYDROcodone 2018-03- No Acute 1{tbl} Take 1 MD -acetaminop 0-30 11-05 postoperati tablet by Eve moser (NORCO) 00:00: 00:00 ve pain mouth n 5 mg-325 mg 00 :00 every 8 per tablet (eight) hours as needed for severe pain. ondansetron 2018-03- No Nausea 4mg Dissolve 1 MD (ZOFRAN 0-25 01-23 tablet (4 Abner o ODT) 4 mg 00:00: 00:00 mg) on the n disintegrat 00 :00 tongue ing tablet every 8 (eight) hours as needed for nausea. polyethylen 2018-03- No Esophageal 17g Pour 17 MD e glycol 0-12 12-30 cancer gram Anderso (GLYCOLAX) 00:00: 00:00 (about 1 n 17 00 :00 heaping gram/dose tablespoon powder ) of powder up to the indicated riri on the cap of bottle. Dissolve and stir in any 4 to 8 ounces of beverage and give as instructed per J-tube daily. lidocaine 2018-03- No Esophageal 1{patch Place 1 MD (LIDODERM) 0-12 10-30 cancer } patch on An derso 5% (700 00:00: 00:00 the skin n mg/patch) 00 :00 daily. transdermal Remove & patch Discard patch within 12 hours or as directed by MD. Remove old patch(es) before replacing new patch(es). amLODIPine- 2018-03 Yes Esophageal 1{capsu Give 1 MD benazepril 0-11 cancer le} capsule José Luis rso (LOTREL) 5 00:00: per J-tube n mg-20 mg 00 daily. per capsule atorvastati 2018-03 Yes Esophageal 20mg Take 2 MD n (LIPITOR) 0-11 cancer tablets And erso 10 mg 00:00: (20 mg) by n tablet 00 mouth daily. OK to hold until you are taking medication s by mouth metFORMIN 2018- Yes Esophageal 500mg Take 1 MD (GLUCOPHAGE 0-11 cancer tablet José Luis rso ) 500 mg 00:00: (500 mg) n tablet 00 by mouth twice daily. Hold until you are on a regular diet. docusate 2018-03- No Esophageal 100mg Give 10 mL MD sodium 003-13 cancer (100 mg) Abner o (COLACE) 50 00:00: 00:00 per J-tube n mg/5 mL 00 :00 twice liquid daily. acetaminoph 2018-03- No Esophageal 1000mg Give 2 MD en 0-24 cancer tablets Anderso (TYLENOL) 00:00: 04:59 (1,000 mg) n 500 mg 00 :00 per J-tube tablet every 6 (six) hours for 10 days. celecoxib 2018-03- No Esophageal 200mg Give 1 MD (CeleBREX) 01-05 cancer capsule And erso 200 mg 00:00: 04:59 (200 mg) n capsule 00 :00 per J-tube twice daily for 10 days. pantoprazol 2018-03- No Esophageal 40mg Give 20 mL MD e oral 001-05 cancer (40 mg) Anderso suspension 00:00: 04:59 per J-tube n 2 mg/mL 00 :00 daily for (AMB-CMPD) 10 days. gabapentin 2018-03- No Cancer 600mg Take 1 M D (NEURONTIN) 0-30 associated tablet Anderso 600 mg 00:00: 00:00 pain (600 mg) n tablet 00 :00 by mouth 3 (three) times a day. methadone 2018-03- No Cancer 2.5mg Give half MD (DOLOPHINE) 01-11 associated a tablet Anderso 5 mg tablet 00:00: 00:00 pain (2.5 mg) n 00 :00 by feeding tube route every 6 (six) hours. methocarbam 2018-03- No Cancer 750mg 1 tablet MD ol 0-30 associated (750 mg) José Luis rso (ROBAXIN) 00:00: 00:00 pain by feeding n 750 mg 00 :00 tube route tablet every 6 (six) hours as needed for muscle spasms. HYDROmorpho 2018-03- No Cancer 4mg Take 1 M D ne 0-10 10-30 associated tablet (4 And erso (DILAUDID) 00:00: 00:00 pain mg) by n 4 mg tablet 00 :00 mouth every 4 (four) hours as needed for moderate pain. HYDROmorpho 2018-03- No Cancer 6mg Take 3 M D ne 0-10 10-30 associated tablets (6 An derso (DILAUDID) 00:00: 00:00 pain mg) by n 2 mg tablet 00 :00 mouth every 4 (four) hours as needed for severe pain. HYDROmorpho 2018- No Esophageal 2mg Take 1 MD ne 9-23 10-13 cancer tablet (2 Anderso (DILAUDID) 00:00: 00:00 mg) by n 2 mg tablet 00 :00 mouth every 4 (four) hours as needed for severe pain. predniSONE 2018- No 20mg QD Take [address] [facility] (DELTASONE) 9- 10-16 tablet (20 L ukes - 20 MG 00:00: 23:59 mg total) Medica l tablet 00 :00 by mouth Center daily for 25 days Take 20 mg for 2 weeks followed by 10 mg for 2 weeks. traMADol 2018- No 1{tbl} Take 1 MD (ULTRAM) 50 9- 10-13 tablet by An derso mg tablet 00:00: 00:00 mouth n 00 :00 every 6 (six) hours as needed. predniSONE 2018- No 20mg QD Take [address] [facility] (DELTASONE) 9- 09-20 tablet (20 L ukes - 20 MG 00:00: 00:00 mg total) Medica l tablet 00 :00 by mouth Center daily for 25 days. predniSONE 2019- No 20mg QD Take [address] [facility] (DELTASONE) 9-21 09-20 tablet (20 L ukes - 20 MG 00:00: 00:00 mg total) Medica l tablet 00 :00 by mouth Center daily for 25 days. viscous 2018- Yes 10mL Swish and [facility] lidocaine 9-20 swallow 10 Luke s - 2% (VISCOUS 00:00: mLs every M edical LIDOCAINE) 00 6 (six) Center 2 % Soln hours as mucosal needed solution (throat/es ophageal pain). sucralfate 2019- No 1g Q.25D Take [address] [facility] (CARAFATE) -02 12-19 tablet (1 Rajeev es - 1 gram 00:00: 23:59 g total) Medica l tablet 00 :00 by mouth 4 Center (four) times daily. calcium 2018- No 1000mg Take 2 [facility] carbonate 9-20 10-20 tablets [facility] - (TUMS) 500 00:00: 23:59 (1,000 mg M edical mg chewable 00 :00 total) by Cristian ter tablet mouth 3 (three) times daily as needed for up to 30 days. HYDROcodone 2018- No 1{tbl} Take 1 M D -acetaminop - 10-13 tablet by An derso hen (NORCO) 00:00: 00:00 mouth n 7.5 mg-325 00 :00 every 6 mg per (six) tablet hours as needed. aluminum-ma 2018- No 30mL Take 30 mL MD gnesium 12-02-13 by mouth Anderso hydroxide-s 00:00: 00:00 every 6 n imethicone 00 :00 (six) oral hours as suspension needed. 400-400-40 mg/5 mL LIDOCAINE 2 2018- No 10mL Take 10 mL MD % solution 12-02-13 by mouth José Luis rso 00:00: 00:00 every 6 n 00 :00 (six) hours as needed. Swish and swallow calcium 2018- No 1000mg Chew 1,000 M D carbonate 9-20 10-13 mg every 8 And erso (TUMS) 500 00:00: 00:00 (eight) n mg (200 mg 00 :00 hours. elemental calcium per tablet) chewable tablet predniSONE 2018- No 20mg Take 20 mg MD (DELTASONE) 9-20 10-13 by mouth And erso 20 mg 00:00: 00:00 daily. n tablet 00 :00 For 25 days and follow instructio ns traMADol 2018- No 50mg Take [address] [facility] (ULTRAM) 50 12-02-30 tablet (50 L ukes - mg tablet 00:00: 23:59 mg total) Me dical 00 :00 by mouth Center every 6 (six) hours as needed for up to 10 days. Max Daily Amount: 200 mg aluminum & 2019- 2019- No 30mL Take [address] [facility] magnesium 9-20 09-30 mLs by [facility] - hydroxide-s 00:00: 23:59 mouth Medi zachary imethicone 00 :00 every 6 Center (MAALOX (six) PLUS) hours as 400-400-40 needed for mg/5 mL up to 10 suspension days. HYDROcodone 2018- No 1{tbl} Take [address] -acetaminop -12-09 tablet by Jannette moser (NORCO 00:00: 23:59 mouth Medic al 7.5-325) 00 :00 every 6 Center 7.5-325 mg (six) per tablet hours as needed for Pain for up to 7 days. Max Daily Amount: 4 tablets aluminum & 2018- No 30mL Take [address] [facility] magnesium 9-20 -20 mLs by [facility] - hydroxide-s 00:00: 00:00 mouth Medi zachary imethicone 00 :00 every 6 Center (MAALOX (six) PLUS) hours as 400-400-40 needed for mg/5 mL up to 10 suspension days. sucralfate 2018- No 1g Q.25D Take [address] [facility] (CARAFATE) -02 12-20 tablet (1 Rajeev es - 1 gram 00:00: 00:00 g total) Medica l tablet 00 :00 by mouth 4 Center (four) times daily. calcium 2018- No 1000mg Take 2 [facility] carbonate -02 12-20 tablets [facility] - (TUMS) 500 00:00: 00:00 (1,000 mg M edical mg chewable 00 :00 total) by Cristian ter tablet mouth 3 (three) times daily as needed for up to 30 days. HYDROcodone 2019- No 1{tbl} Take [address] -acetaminop -02 12-20 tablet by Jannette moser (NORCO 00:00: 00:00 mouth Medic al 10-325) 00 :00 every 6 Center 10-325 mg (six) per tablet hours as needed for Pain. Max Daily Amount: 4 tablets ondansetron 2019- No 4mg Take [address] [facility] (ZOFRAN-ODT -02 12-20 tablet (4 Jannette kes - ) 4 MG 00:00: 00:00 mg total) Medic al disintegrat 00 :00 by mouth Cent er ing tablet every 8 (eight) hours as needed for up to 7 days. HYDROcodone 2018- 2019- No 1{tbl} Take [address] -acetaminop 11-25 tablet by Jannette moser (NORCO 10:45: 00:00 mouth Medic al 10-325) 53 :00 every 6 Center 10-325 mg (six) per tablet hours as needed for Pain. ondansetron 2018-0 Yes 4mg Take [address] [facility] (ZOFRAN-ODT 11-25 tablet (4 Rajeev es - ) 4 MG 00:00: mg total) Medica l disintegrat 00 by mouth Cent er ing tablet every 8 (eight) hours as needed for Nausea. HYDROcodone 2019- No 1{tbl} Take [address] -acetaminop 11-25 tablet by Jannette moser (NORCO 00:00: 00:00 mouth Medic al 10-325) 00 :00 every 6 Center 10-325 mg (six) per tablet hours as needed for Pain. Max Daily Amount: 4 tablets viscous 2019- No 10mL Swish and [facility] lidocaine 11-25 swallow 10 Rajeev es - 2% (VISCOUS 00:00: 00:00 mLs every Medical LIDOCAINE) 00 :00 6 (six) Center 2 % Soln hours as mucosal needed solution (throat/es ophageal pain). amLODIPine- 2019-0 Yes 1{capsu QD Take [address] benazepril 11-23 le} capsule by Rajeev es - (LOTREL 10:43: mouth Medical 5-20) 5-20 36 every Center mg per morning . capsule pyrilamine- 2019-0 Yes QD Take by [facility] dextrometho 9-11 mouth [facility] - rphan 10:43: daily . Medical (CAPRON 36 Center DMT) 30-30 mg Tab buprenorphi 2019- 2019- No 150ug Q.5D Place [address] [facility] ne HCl 11-23-11 mcg inside [facility] - (BELBUCA) 10:42: 00:00 cheek 2 Medi zachary 150 mcg 48 :00 (two) Center Film times daily. CARAFATE 2019- No 10mL Take 10 mL MD 100 mg/mL 11-23-13 by mouth Nicolas so suspension 00:00: 00:00 every 6 n 00 :00 (six) hours. metFORMIN 2019- No 500mg Take 500 MD (GLUCOPHAGE 9-10 10-11 mg by Abner o ) 500 mg 00:00: 00:00 mouth n tablet 00 :00 twice daily. omeprazole 2019- No 1{capsu Take 1 M D (PriLOSEC) 11-15 le} capsule by An derso 40 MG 00:00: 00:00 mouth n capsule 00 :00 twice daily. atorvastati 2019- Yes 20mg QD Take [address] [facility] n (LIPITOR) 7-29 by mouth Luke s - 20 MG 09:40: daily. Medical tablet 55 Center metFORMIN Yes 500mg Take [address] [facility] (GLUCOPHAGE 7-29 mg by [facility] - ) 500 MG 09:40: mouth 2 Medica l tablet 55 (two) Center times daily with breakfast and dinner. omeprazole Yes an ulcer of 40mg Q.5D Take [address] (PRILOSEC) 7-29 the by mouth 2 Rajeev es - 40 MG 09:40: duodenum (two) Medical capsule 55 times Center daily. pyrilamine- 2019- No 1{tbl} Take 1 M D dextrometho -02 01-13 tablet by An derso rphan 30-30 00:00: 00:00 mouth n mg tab 00 :00 daily. amLODIPine- 2019- No 1{capsu Take 1 MD benazepril - 10-11 le} capsule by An derso (LOTREL) 5 00:00: 00:00 mouth n mg-20 mg 00 :00 daily. per capsule atorvastati 2019- No 20mg Take 20 mg MD n (LIPITOR) 03-15 1011 by mouth And erso 10 mg 00:00: 00:00 daily. n tablet 00 :00 Vital Signs Vital Name Observation Time Observation Value Comments Source WEIGHT 2019-09-18 00:00:00 94.2 kg WEIGHT 2019-09-18 00:00:00 94.2 kg Systolic blood 2019-09-18 12:35:01 152 mm[Hg] MD And erson pressure Diastolic blood 2019-09-18 12:35:01 101 mm[Hg] MD Dodge derson pressure Heart rate 2019-09-18 12:35:01 71 /min Nicolas silveira Body temperature 2019-09-18 12:35:01 36.89 Cat MD Rodríguez nderson Respiratory rate 2019-09-18 12:35:01 18 /min MD Anne valenzuelaon Oxygen saturation in 2019-09-18 12:35:01 97 /min MD Jacobson Arterial blood by Pulse oximetry Body weight 2019-09-18 12:31:00 94.2 kg Nicolas silveira BMI 2019-09-18 12:31:00 26.65 kg/m2 Nicolas silveira Body height 2019-03-16 08:21:00 188 cm Nicolas silveira Systolic blood 2018-12-02 12:00:00 167 mm[Hg] [facility] Diastolic blood 2018-12-02 12:00:00 90 mm[Hg] [facility] Heart rate 2018-12-02 12:00:00 82 /min [facility] Body temperature 2018-12-02 12:00:00 36.56 Cat [facility] Respiratory rate 2018-12-02 12:00:00 18 /min [facility] Oxygen saturation in 2018-12-02 12:00:00 96 /min [facility] Arterial blood by Medical Ce nter Pulse oximetry Body height 2018-11-28 17:14:00 185.4 cm [facility] Body weight Measured 2018-11-28 17:14:00 130.364 kg [facility] BMI 2018-11-28 17:14:00 37.92 kg/m2 [facility] Procedures Procedure Date / Time Performing Clinician Source Performed CT CHEST ABDOMEN W CONTRAST 2019-09-14 16:38:19 Mildred Nieves MD POC CREATININE 2019-09-14 16:05:00 Mildred Nieves MD PATHOLOGY BIOPSY SPECIMEN 2019-03-16 04:17:48 Albino Frausto Chi, MD INTERPRETATION DIAGNOSTIC UPPER 2019-03-16 03:40:00 Albino Frausto Chi, MD GASTROINTESTINAL ENDOSCOPY XR CHEST 1 VW 2019-03-16 01:24:57 Carlyle Oneill MD COMPLETE BLOOD COUNT W/ 2019-03-16 00:43:00 Carlyle Oneill MD DIFFERENTIAL COMPREHENSIVE METABOLIC PANEL 2019-03-16 00:43:00 Rudy Oneill MAGNESIUM LEVEL 2019-03-16 00:43:00 Carlyle Oneill MD PHOSPHORUS LEVEL 2019-03-16 00:43:00 Carlyle Oneill MD CARDIAC PANEL 2019-03-16 00:43:00 Carlyle Oneill MD PROTHROMBIN TIME 2019-03-16 00:43:00 Carlyle Oneill MD PARTIAL THROMBOPLASTIN TIME 2019-03-16 00:43:00 Carlyle Oneill MD Results CBC 2019-03-16 00:43:00 Carlyle Oneill MD MANUAL DIFFERENTIAL 2019-03-16 00:43:00 Carlyle Oneill MD [facility] GLUCOSE LEVEL 2019-03-16 00:43:00 Carlyle Oneill MD BLOOD UREA NITROGEN 2019-03-16 00:43:00 Carlyle Oneill MD [facility] ELECTROLYTE PANEL 2019-03-16 00:43:00 Carlyle Oneill MDo n SERUM CREATININE 2019-03-16 00:43:00 Carlyle Oneill MD .GLOMERULAR FILTRATION RATE 2019-03-16 00:43:00 Carlyle Oneill MD CALCIUM LEVEL TOTAL 2019-03-16 00:43:00 Carlyle Oneill MD [facility] ALBUMIN LEVEL 2019-03-16 00:43:00 Carlyle Oneill MD ALKALINE PHOSPHATASE 2019-03-16 00:43:00 Carlyle Oneill MD ALANINE AMINOTRANSFERASE 2019-03-16 00:43:00 Carlyle Oneill MD ASPARTATE AMINOTRANSFERASE 2019-03-16 00:43:00 Carlyle Oneill TOTAL PROTEIN 2019-03-16 00:43:00 Carlyle Oneill MD FRACTIONATED BILIRUBIN 2019-03-16 00:43:00 Carlyle Oneill MDson POC GLUCOSE SCREEN 2019-03-16 00:40:00 Carlyle Oneill MD on EKG, 12-LEAD (PORTABLE) 2019-03-16 00:00:00 Carlyle Oneill MD SURGICAL BIOPSY HISTORIC 2019-03-15 18:00:00 MD Kavon Grier Pathology XR CHEST 2 VW 2019-03-13 18:05:40 Mildred Nieves MD XR CHEST 2 VW 2019-01-02 16:49:36 Martinez Fernandes MD XR CHEST 2 VW 2018-12-25 16:00:14 Martinez Fernandes MD XR CHEST 2 VW 2018-12-25 12:30:45 Martinez Fernandes MD POC GLUCOSE SCREEN 2018-12-25 10:36:00 Timothy Calvin MD José Luis rson POC GLUCOSE SCREEN 2018-12-25 04:32:00 Timothy Calvin MD José Luis rson POC GLUCOSE SCREEN 2018-12-24 22:58:00 Timothy Calvin MD José Luis rson POC GLUCOSE SCREEN 2018-12-24 17:05:00 Timothy Calvin MD José Luis rson XR ABDOMEN 1 VW PORTABLE 2018-12-24 14:58:44 Martinez Fernandes MD OSCILLATORY PEP 2018-12-24 14:20:30 Timothy Calvin MD Anderso n XR CHEST 2 VW 2018-12-24 12:55:20 Michele Blanchard MD Andela peter POC GLUCOSE SCREEN 2018-12-24 11:36:00 Timothy Calvin MD José Luis rson COMPLETE BLOOD COUNT W/ 2018-12-24 09:32:00 Michele Blanchard MD DIFFERENTIAL BLOOD UREA NITROGEN 2018-12-24 09:32:00 Michele Blanchard MD And erson SERUM CREATININE 2018-12-24 09:32:00 Michele Blanchard MD Abner on ELECTROLYTE PANEL 2018-12-24 09:32:00 Michele Blanchard MD Nicolas son MAGNESIUM LEVEL 2018-12-24 09:32:00 Michele Blanchard MD Results CBC 2018-12-24 09:32:00 Michele Blanchard MD n MANUAL DIFFERENTIAL 2018-12-24 09:32:00 Michele Blanchard MD And erson SERUM CREATININE 2018-12-24 09:32:00 Michele Blanchard MD Abner on .GLOMERULAR FILTRATION RATE 2018-12-24 09:32:00 Kamryn Blanchard MD POC GLUCOSE SCREEN 2018-12-24 06:30:00 Timothy Calvin MD José Luis rson POC GLUCOSE SCREEN 2018-12-23 22:39:00 Timothy Calvin MD José Luis rson POC GLUCOSE SCREEN 2018-12-23 19:09:00 Timothy Calvin MD José Luis rson FL ESOPHAGRAM COMPLETE 2018-12-23 18:23:42 Michele Blanchard MD POC GLUCOSE SCREEN 2018-12-23 10:59:00 Timothy Calvin MD José Luis rson BLOOD UREA NITROGEN 2018-12-23 08:39:00 Michele Blanchard MD And erson SERUM CREATININE 2018-12-23 08:39:00 Michele Blanchard MD Abner on ELECTROLYTE PANEL 2018-12-23 08:39:00 Michele Blanchard MD Nicolas son MAGNESIUM LEVEL 2018-12-23 08:39:00 Michele Blanchard MD Anderso n SERUM CREATININE 2018-12-23 08:39:00 Michele Blanchard MD Abner on .GLOMERULAR FILTRATION RATE 2018-12-23 08:39:00 Kamryn Blanchard MD POC GLUCOSE SCREEN 2018-12-23 04:34:00 Timothy Calvin MD José Luis rson POC GLUCOSE SCREEN 2018-12-23 00:46:00 Timothy Calvin MD José Luis rson POC GLUCOSE SCREEN 2018-12-22 16:33:00 Timothy Calvin MD José Luis rson POC GLUCOSE SCREEN 2018-12-22 11:15:00 Timothy Calvin MD José Luis rson COMPLETE BLOOD COUNT W/ 2018-12-22 08:14:00 Michele Blanchard MD DIFFERENTIAL BLOOD UREA NITROGEN 2018-12-22 08:14:00 Michele Blanchard MD And erson SERUM CREATININE 2018-12-22 08:14:00 Michele Blanchard MD Abner on ELECTROLYTE PANEL 2018-12-22 08:14:00 Michele Blanchard MD Nicolas son MAGNESIUM LEVEL 2018-12-22 08:14:00 Michele Blanchard MD Anderso n PHOSPHORUS LEVEL 2018-12-22 08:14:00 Michele Blanchard MD Abner on Results CBC 2018-12-22 08:14:00 Michele Blanchard MD Andfarhanao n MANUAL DIFFERENTIAL 2018-12-22 08:14:00 Michele Blanchard MD And erson SERUM CREATININE 2018-12-22 08:14:00 Michele Blanchard MD Abner on .GLOMERULAR FILTRATION RATE 2018-12-22 08:14:00 Kamryn Blanchard MD POC GLUCOSE SCREEN 2018-12-22 04:35:00 Timothy Calvin MD José Luis rson POC GLUCOSE SCREEN 2018-12-21 22:58:00 Timothy Calvin MD José Luis rson POC GLUCOSE SCREEN 2018-12-21 17:17:00 Timothy Calvin MD José Luis rson POC GLUCOSE SCREEN 2018-12-21 13:28:00 Timothy Calvin MD José Luis rson POC GLUCOSE SCREEN 2018-12-21 07:39:00 Timothy Calvin MD José Luis rson POC GLUCOSE SCREEN 2018-12-21 06:31:00 Timothy Calvin MD José Luis rson POC GLUCOSE SCREEN 2018-12-21 01:27:00 Timothy Calvin MD José Luis rson POC GLUCOSE SCREEN 2018-12-20 22:58:00 Timothy Calvin MD José Luis rson POC GLUCOSE SCREEN 2018-12-20 17:21:00 Timothy Calvin MD José Luis rson POC GLUCOSE SCREEN 2018-12-20 14:09:00 Timothy Calvin MD José Luis rson COMPLETE BLOOD COUNT W/ 2018-12-20 08:51:00 Michele Blanchard MD DIFFERENTIAL BLOOD UREA NITROGEN 2018-12-20 08:51:00 Michele Blanchard MD And erson SERUM CREATININE 2018-12-20 08:51:00 Michele Blanchard MD Abner on ELECTROLYTE PANEL 2018-12-20 08:51:00 Michele Blanchard MD Nicolas son MAGNESIUM LEVEL 2018-12-20 08:51:00 Michele Blanchard MD Andfarhanao n PHOSPHORUS LEVEL 2018-12-20 08:51:00 Michele Blanchard MD Abner on Results CBC 2018-12-20 08:51:00 Michele Blanchard MD MANUAL DIFFERENTIAL 2018-12-20 08:51:00 Michele Blanchard MD And erson SERUM CREATININE 2018-12-20 08:51:00 Michele Blanchard MD Abner on .GLOMERULAR FILTRATION RATE 2018-12-20 08:51:00 Kamryn Blanchard MD POC GLUCOSE SCREEN 2018-12-20 05:53:00 Timothy Calvin MD José Luis rson POC GLUCOSE SCREEN 2018-12-20 01:28:00 Timothy Calvin MD José Luis rson POC GLUCOSE SCREEN 2018-12-19 23:14:00 Timothy Calvin MD José Luis rson POC GLUCOSE SCREEN 2018-12-19 17:18:00 Timothy Calvin MD José Luis rson XR CHEST 2 VW 2018-12-19 15:55:08 Martinez Fernandes MD POC GLUCOSE SCREEN 2018-12-19 11:04:00 Timothy Calvin MD José Luis rson BASIC METABOLIC PANEL, 2018-12-19 08:16:00 Martinez Fernandes MDson CALCIUM IONIZED MAGNESIUM LEVEL 2018-12-19 08:16:00 Martinez Fernandes MD PHOSPHORUS LEVEL 2018-12-19 08:16:00 Martinez Fernandes MD COMPLETE BLOOD COUNT W/ 2018-12-19 08:16:00 Martinez Fernandes MD nderson DIFFERENTIAL GLUCOSE LEVEL 2018-12-19 08:16:00 Brandon Lara MD BLOOD UREA NITROGEN 2018-12-19 08:16:00 Brandon Lara MD Nicolasmarsha silveira ELECTROLYTE PANEL 2018-12-19 08:16:00 Brnadon Lara MD SERUM CREATININE 2018-12-19 08:16:00 Brandon Lara MD .GLOMERULAR FILTRATION RATE 2018-12-19 08:16:00 Brandon Lara MD Results CBC 2018-12-19 08:16:00 Brandon Lara MD MANUAL DIFFERENTIAL 2018-12-19 08:16:00 Brandon Lara MD CALCIUM LEVEL IONIZED 2018-12-19 08:16:00 Brandon Lara MD And erson POC GLUCOSE SCREEN 2018-12-19 05:27:00 Timothy Calvin MD José Luis rson POC GLUCOSE SCREEN 2018-12-18 22:29:00 Timothy Calvin MD José Luis rson OSCILLATORY PEP 2018-12-18 19:01:34 Martinez Fernandes MD POC GLUCOSE SCREEN 2018-12-18 16:34:00 Timothy Calvin MD José Luis rson OSCILLATORY PEP 2018-12-18 13:00:16 Martinez Fernandes MD POC GLUCOSE SCREEN 2018-12-18 11:09:00 Timothy Calvin MD José Luis rson COMPLETE BLOOD COUNT W/ 2018-12-18 09:35:00 Martinez Fernandes MD ndersasim DIFFERENTIAL MAGNESIUM LEVEL 2018-12-18 09:35:00 Martinez Fernandes MD PHOSPHORUS LEVEL 2018-12-18 09:35:00 Martinez Fernandes MD BASIC METABOLIC PANEL, 2018-12-18 09:35:00 Martinez Fernandes MD CALCIUM IONIZED Results CBC 2018-12-18 09:35:00 Luisito Chappell MD MANUAL DIFFERENTIAL 2018-12-18 09:35:00 Luisito Chappell MD José Luis rson GLUCOSE LEVEL 2018-12-18 09:35:00 Luisito Chappell MD BLOOD UREA NITROGEN 2018-12-18 09:35:00 Luisito Chappell MD José Luis rsasim ELECTROLYTE PANEL 2018-12-18 09:35:00 Luisito Chappell MD on SERUM CREATININE 2018-12-18 09:35:00 Luisito Chappell MD Andfarhanao n .GLOMERULAR FILTRATION RATE 2018-12-18 09:35:00 Luisito Chappell MD CALCIUM LEVEL IONIZED 2018-12-18 09:35:00 Luisito Chappell MD POC GLUCOSE SCREEN 2018-12-18 06:10:00 Timothy Calvin MD José Luis rson OSCILLATORY PEP 2018-12-18 01:00:22 Martinez Fernandes MD POC GLUCOSE SCREEN 2018-12-17 22:45:00 Timothy Calvin MD José Luis rson OSCILLATORY PEP 2018-12-17 19:01:36 Martinez Fernandes MD POC GLUCOSE SCREEN 2018-12-17 17:46:00 Timothy Calvin MD José Luis rson XR CHEST 2 VW 2018-12-17 14:22:03 Martinez Fernandes MD OSCILLATORY PEP 2018-12-17 13:00:15 Martinez Fernandes MD POC GLUCOSE SCREEN 2018-12-17 12:04:00 Timothy Calvin MD José Luis rson SODIUM LEVEL 2018-12-17 08:23:00 Martinez Fernandes MD POTASSIUM LEVEL 2018-12-17 08:23:00 Martinez Fernandes MD CHLORIDE LEVEL 2018-12-17 08:23:00 Martinez Fernandes MD CARBON DIOXIDE LEVEL 2018-12-17 08:23:00 Martinez Fernandes MD José Luis rson BLOOD UREA NITROGEN 2018-12-17 08:23:00 Martinez Fernandes MD Nicolas son SERUM CREATININE 2018-12-17 08:23:00 Martinez Fernandes MD GLUCOSE, RANDOM 2018-12-17 08:23:00 Martinez Fernandes MD MAGNESIUM LEVEL 2018-12-17 08:23:00 Martinez Fernandes MD CALCIUM LEVEL TOTAL 2018-12-17 08:23:00 Martinez Fernandes MD Nicolas son CALCIUM LEVEL IONIZED 2018-12-17 08:23:00 Martinez Fernandes MD And erson PHOSPHORUS LEVEL 2018-12-17 08:23:00 Martinez Fernandes MD COMPLETE BLOOD COUNT W/ 2018-12-17 08:23:00 Martinez Fernandes MD nderson DIFFERENTIAL SERUM CREATININE 2018-12-17 08:23:00 Timothy Calvin MD Abner on .GLOMERULAR FILTRATION RATE 2018-12-17 08:23:00 Timothy Calvin MD Results CBC 2018-12-17 08:23:00 Timothy Calvin MD Andela n MANUAL DIFFERENTIAL 2018-12-17 08:23:00 Timothy Calvin MD And erson ANION GAP 2018-12-17 08:23:00 Timothy Calvin MD n OSCILLATORY PEP 2018-12-17 07:00:21 Martinez Fernandes MD OSCILLATORY PEP 2018-12-17 02:07:49 Martinez Fernandes MD POC GLUCOSE SCREEN 2018-12-17 00:23:00 Timothy Calvin MD José Luis rson SODIUM LEVEL 2018-12-16 23:09:00 Martinez Fernandes MD POTASSIUM LEVEL 2018-12-16 23:09:00 Martinez Fernandes MD CHLORIDE LEVEL 2018-12-16 23:09:00 Martinez Fernandes MD CARBON DIOXIDE LEVEL 2018-12-16 23:09:00 Martinez Fernandese rson BLOOD UREA NITROGEN 2018-12-16 23:09:00 Martinez Fernandes MD Nicolas son SERUM CREATININE 2018-12-16 23:09:00 Martinez Fernandes MD GLUCOSE, RANDOM 2018-12-16 23:09:00 Martinez Fernandes MD MAGNESIUM LEVEL 2018-12-16 23:09:00 Martinez Fernandes MD CALCIUM LEVEL TOTAL 2018-12-16 23:09:00 Martinez Fernandes MD Nicolas raoul CALCIUM LEVEL IONIZED 2018-12-16 23:09:00 Martinez Fernandes MD And erson PHOSPHORUS LEVEL 2018-12-16 23:09:00 Martinez Fernaneds MD COMPLETE BLOOD COUNT W/ 2018-12-16 23:09:00 Martinez Fernandes MD A nderson DIFFERENTIAL SERUM CREATININE 2018-12-16 23:09:00 Timothy Calvin MD Abner on .GLOMERULAR FILTRATION RATE 2018-12-16 23:09:00 Timothy Calvin MD Results CBC 2018-12-16 23:09:00 Timothy Calvin MD MANUAL DIFFERENTIAL 2018-12-16 23:09:00 Timothy Calvin MD And erson ANION GAP 2018-12-16 23:09:00 Timothy Calvin MD XR CHEST 1 VW 2018-12-16 22:56:16 Martinez Fernandes MD SURGICAL HISTORIC 2018-12-16 17:00:00 MD Eve Grier Pathology OR ARTERIAL BLOOD GAS PLUS 2018-12-16 16:57:00 Gaetano Orozco MD PATHOLOGY SURGICAL SPECIMEN 2018-12-16 13:33:13 Timothy Calvin MD INTERPRETATION POC GLUCOSE SCREEN 2018-12-16 11:56:00 Timothy Calvin MD José Luis rson PARTIAL ESOPHAGECTOMY WITH 2018-12-16 11:05:00 Timothy Calvin MD THORACOTOMY AND LAPAROTOMY AND THORACIC ESOPHAGOGASTROSTOMY (MITESH SHELTON) THORACIC LYMPHADENECTOMY BY 2018-12-16 11:05:00 Timothy Calvin MD THORACOTOMY, MEDIASTINAL AND REGIONAL LYMPHADENECTOMY INTRAOPERATIVE TUBE OR NEEDLE 2018-12-16 11:05:00 Timothy Calvin MD CATHETER JEJUNOSTOMY FOR ENTERAL ALIMENTATION COMPLETE BLOOD COUNT W/ 2018-12-16 08:33:00 Izabela Mckay MDrson DIFFERENTIAL BASIC METABOLIC PANEL, 2018-12-16 08:33:00 Izabela Mckay MD derson CALCIUM IONIZED MAGNESIUM LEVEL 2018-12-16 08:33:00 Izabela Mckay MD PHOSPHORUS LEVEL 2018-12-16 08:33:00 Izabela Mckay MD PROTHROMBIN TIME 2018-12-16 08:33:00 Izabela Mckay MD PARTIAL THROMBOPLASTIN TIME 2018-12-16 08:33:00 Izabela Mckay MD Results CBC 2018-12-16 08:33:00 Izabela Mckay MD MANUAL DIFFERENTIAL 2018-12-16 08:33:00 [facility] 2018-12-16 08:33:00 Izabela Mckay MD BLOOD UREA NITROGEN 2018-12-16 08:33:00 Izabela Mckay MD Nicolas son ELECTROLYTE PANEL 2018-12-16 08:33:00 Izabela Mckay MDo n SERUM CREATININE 2018-12-16 08:33:00 Izabela Mckay MD .GLOMERULAR FILTRATION RATE 2018-12-16 08:33:00 Izabela Mckay MD CALCIUM LEVEL IONIZED 2018-12-16 08:33:00 Izabela Mckay erson TYPE AND SCREEN 2018-12-16 08:28:00 Izabela Mckay MD ABORH 2018-12-16 08:28:00 Izabela Mckay MD ANTIBODY SCREEN 2018-12-16 08:28:00 Izabela Mckay MD CLOT EXPIRATION DATE 2018-12-16 08:28:00 Izabela Mckay MD TMP INTERPRETATION ANTIBODY 2018-12-16 08:28:00 Izabela Mckay MD SCREEN NEGATIVE POC GLUCOSE SCREEN 2018-12-16 04:26:00 Timothy Calvin MD José Luis rson POC GLUCOSE SCREEN 2018-12-15 22:52:00 Timothy Calvin MD José Luis rson POC GLUCOSE SCREEN 2018-12-15 16:29:00 Timothy Calvin MD José Luis rson POC GLUCOSE SCREEN 2018-12-15 11:06:00 Timothy Calvin MD José Luis rson COMPLETE BLOOD COUNT W/ 2018-12-15 07:33:00 Michele Blanchard MD DIFFERENTIAL BLOOD UREA NITROGEN 2018-12-15 07:33:00 Michele Blanchard MD And erson SERUM CREATININE 2018-12-15 07:33:00 Michele Blanchard MD Abner on ELECTROLYTE PANEL 2018-12-15 07:33:00 Michele Blanchard MD Nicolas son MAGNESIUM LEVEL 2018-12-15 07:33:00 Michele Blanchard MD Andela peter Results CBC 2018-12-15 07:33:00 Michele Blanchard MD Andela peter MANUAL DIFFERENTIAL 2018-12-15 07:33:00 Michele Blanchard MD And erson SERUM CREATININE 2018-12-15 07:33:00 Michele Blanchard MD Abner on .GLOMERULAR FILTRATION RATE 2018-12-15 07:33:00 Kamryn Blanchard MD POC GLUCOSE SCREEN 2018-12-15 04:28:00 Timothy Calvin MD José Lius rson POC GLUCOSE SCREEN 2018-12-14 22:45:00 Timothy Calvin MD José Luis rson POC GLUCOSE SCREEN 2018-12-14 17:35:00 Timothy Calvin MD José Luis rson PETCT INITIAL TREATMENT 2018-12-14 12:35:37 Michele Blanchard MD STRATEGY CONFIRM ABORH TYPE 2018-12-14 09:00:00 Timothy Calvin MD José Luis rson TYPE AND SCREEN 2018-12-14 08:59:00 Michele Blanchard MD Andfarhanao n ABORH 2018-12-14 08:59:00 Michele Blanchard MD HEMOGLOBIN A1C 2018-12-14 08:59:00 Michele Blanchard MD Andfarhanao n ANTIBODY SCREEN 2018-12-14 08:59:00 Michele Blanchard MD Andfarhanao rome CLOT EXPIRATION DATE 2018-12-14 08:59:00 Michele Blanchard MD TMP INTERPRETATION ANTIBODY 2018-12-14 08:59:00 Kamryn Blanchard MD SCREEN NEGATIVE POC GLUCOSE SCREEN 2018-12-14 05:29:00 Timothy Calvin MD José Luis rson POC GLUCOSE SCREEN 2018-12-13 23:10:00 Timothy Calvin MD José Luis rson POC GLUCOSE SCREEN 2018-12-13 17:08:00 Timothy Calvin MD José Luis rson POC GLUCOSE SCREEN 2018-12-13 10:52:00 Timothy Calvin MD José Luis rson PHOSPHORUS LEVEL 2018-12-13 10:26:00 Martinez Fernandes MD MAGNESIUM LEVEL 2018-12-13 10:26:00 Martinez Fernandes MD BASIC METABOLIC PANEL, 2018-12-13 10:26:00 Martinez Fernandes MD CALCIUM IONIZED GLUCOSE LEVEL 2018-12-13 10:26:00 Timothy Calvin MD Anderso n BLOOD UREA NITROGEN 2018-12-13 10:26:00 Timothy Calvin MD And erson ELECTROLYTE PANEL 2018-12-13 10:26:00 Timothy Calvin MD Nicolas son SERUM CREATININE 2018-12-13 10:26:00 Timothy Calvin MD Abner on .GLOMERULAR FILTRATION RATE 2018-12-13 10:26:00 Timothy Calvin MD CALCIUM LEVEL IONIZED 2018-12-13 10:26:00 Timothy Calvin MD nderson POC GLUCOSE SCREEN 2018-12-13 04:44:00 Timothy Calvin MD José Luis rson EKG, 12-LEAD (PORTABLE) 2018-12-13 00:00:00 Michele Blanchard MD POC GLUCOSE SCREEN 2018-12-12 22:47:00 Timothy Calvin MD José Luis rsasim XR CHEST 2 VW 2018-12-12 21:54:00 Sachin Linda MD XR ABDOMEN 2 VW AP W UPRIGHT 2018-12-12 21:45:00 Kalie Javed MD AND OR DECUBITUS T CT CHEST ABDOMEN PELVIS W 2018-12-12 21:26:00 Sachin Linda CONTRAST PREALBUMIN 2018-12-12 20:31:00 Sachin Linda MD Results CBC 2018-12-12 20:26:00 Sachin Linda MD MANUAL DIFFERENTIAL 2018-12-12 20:26:00 Sachin Linda MD José Luis rssaim COMPREHENSIVE METABOLIC PANEL 2018-12-12 19:05:00 Kalie Javed MD T MAGNESIUM LEVEL 2018-12-12 19:05:00 Kalie Javed MD José Luis rson T PHOSPHORUS LEVEL 2018-12-12 19:05:00 Kalie Javed MD And erson T LACTATE DEHYDROGENASE 2018-12-12 19:05:00 Kalie Javed T GLUCOSE LEVEL 2018-12-12 19:05:00 Kalie Javed MD José Luis rsasim T BLOOD UREA NITROGEN 2018-12-12 19:05:00 Kalie Javed MD T ELECTROLYTE PANEL 2018-12-12 19:05:00 Kalie Javed MD derson T SERUM CREATININE 2018-12-12 19:05:00 Kalie Javed MD And erson T .GLOMERULAR FILTRATION RATE 2018-12-12 19:05:00 Fozia Javed MD T CALCIUM LEVEL TOTAL 2018-12-12 19:05:00 Kalie Javed MD T ALBUMIN LEVEL 2018-12-12 19:05:00 Kalie Javed MD José Luis rsasim T ALKALINE PHOSPHATASE 2018-12-12 19:05:00 Kalie Javed MD T ALANINE AMINOTRANSFERASE 2018-12-12 19:05:00 Yuliana Javed MD T ASPARTATE AMINOTRANSFERASE 2018-12-12 19:05:00 Jesus Javed MD T TOTAL PROTEIN 2018-12-12 19:05:00 Kalie Javed MD José Luis rsasim T FRACTIONATED BILIRUBIN 2018-12-12 19:05:00 Kalie Javed MD T COMPLETE BLOOD COUNT W/ 2018-12-12 18:27:00 Kalie Javed MD DIFFERENTIAL T AMYLASE LEVEL 2018-12-12 18:27:00 Kalie Javed MD José Luis rson T LIPASE LEVEL 2018-12-12 18:27:00 Kalie Javed MD José Luis rson T Results CBC 2018-12-12 18:27:00 Kalie Javed MD OUTSIDE REFERRAL 2018 00:00:00 System, Provider Not And cathi In COMPLETE BLOOD COUNT W/ 2018-12-05 17:11:00 Mildred Nieves MD nderson DIFFERENTIAL HEMOGLOBIN A1C 2018-12-05 17:11:00 Mildred Nieves MD COMPREHENSIVE METABOLIC PANEL 2018-12-05 17:11:00 Mildred Nieves MD HEPATITIS C VIRUS ANTIBODY 2018-12-05 17:11:00 Ana Luisa Cooper Results CBC 2018-12-05 17:11:00 Mildred Nieves MD MANUAL DIFFERENTIAL 2018-12-05 17:11:00 Mildred Nieves MD GLUCOSE LEVEL 2018-12-05 17:11:00 Mildred Nieves MD ELECTROLYTE PANEL 2018-12-05 17:11:00 Mildred Nieves MD SERUM CREATININE 2018-12-05 17:11:00 Mildred Nieves MD .GLOMERULAR FILTRATION RATE 2018-12-05 17:11:00 Mildred Nieves MD CALCIUM LEVEL TOTAL 2018-12-05 17:11:00 Mildred Nieves MD ALBUMIN LEVEL 2018-12-05 17:11:00 Mildred Nieves MD ALKALINE PHOSPHATASE 2018-12-05 17:11:00 Mildred Nieves MD ALANINE AMINOTRANSFERASE 2018-12-05 17:11:00 Mildred Nieves MD ASPARTATE AMINOTRANSFERASE 2018-12-05 17:11:00 Mildred Nieves TOTAL PROTEIN 2018-12-05 17:11:00 Mildred Nieves MD FRACTIONATED BILIRUBIN 2018-12-05 17:11:00 Mildred Nieves MD derson BLOOD UREA NITROGEN 2018-12-05 17:11:00 Mildred Nieves MD TMP HCVAB INTERP 2018-12-05 17:11:00 Ana Luisa Cooper MD POCT-GLUCOSE METER 2018-12-01 [facility] 2018-12-01 12:34:00 Nia, [facility] POCT-GLUCOSE METER 2018-12-01 07:37:00 Nia, [facility] BASIC METABOLIC PANEL (7) 2018-12-01 05:42:00 Nia, [facility] POCT-GLUCOSE METER 2018-11-30 20:21:00 Nia, [facility] POCT-GLUCOSE METER 2018-11-30 13:00:00 Nia, [facility] COMPREHENSIVE METABOLIC PANEL 2018-11-30 10:32:00 Nat [facility] CBC W/PLT COUNT & AUTO 2018-11-30 10:32:00 Nat [facility] POCT-GLUCOSE METER 2018-11-30 08:35:00 Nia, [facility] POCT-GLUCOSE METER 2018-11-29 22:21:00 Nia, [facility] POCT-GLUCOSE METER 2018-11-29 06:07:00 GadicherlaElsie [facility] BASIC METABOLIC PANEL (7) 2018-11-29 05:21:00 Nia, [facility] OSI CHEST 2018-11-29 04:08:08 Timothy Calvin MD n URINALYSIS W/ REFLEX URINE 2018-11-29 00:40:00 Nia, [facility] BLOOD CULTURE 2018-11-28 18:53:00 Nia, [facility] BLOOD CULTURE 2018-11-28 18:27:00 Nia, [facility] BASIC METABOLIC PANEL (7) 2018-11-28 18:26:00 Nia, [facility] PT/APTT 2018-11-28 18:26:00 [facility], [facility] HEMOGLOBIN A1C 2018-11-28 18:26:00 Nia, [facility] LACTIC ACID, VENOUS 2018-11-28 18:26:00 Nia, [facility] CBC W/PLT COUNT & AUTO 2018-11-28 18:26:00 [facility], [facility] XR CHEST 1 VIEW 2018-11-28 18:02:00 [facility], [facility]ABLE/[facility] ECG 12-LEAD 2018-11-28 17:36:32 [facility] POCT-GLUCOSE METER 2018-11-25 07:36:00 Quincy MurguiaAmy [facility] BASIC METABOLIC PANEL (7) 2018-11-25 05:03:[address] [facility] HEPATIC FUNCTION PANEL 2018-11-25 05:03:00 [facility] CBC (HEMOGRAM ONLY) 2018-11-25 04:57:00 [facility] OSI BARIUM SWALLOW 2018-11-25 04:08:17 Timothy Calvin MD José Luis rson POCT-GLUCOSE METER 2018-11-24 21:36:00 Shantal [facility] OUTSIDE REFERRAL HISTORIC 2018-11-24 17:00:00 MD Kavon Grier Pathology [place] ESOPHAGUS PHARNYX AND/OR 2018-11-24 15:05:00 Ge [facility] CERVICAL [facility] REPORT OF PROCEDURE - 2018-11-24 11:58:43 Isaac Subramanian [facility] - ENDOSCOPY URL [facility] POCT-GLUCOSE METER 2018-11-24 11:55:00 Ge [facility] TISSUE EXAM 2018-11-24 11:34:00 [facility] UPPER ENDOSCOPY,SUBMUCOSAL 2018-11-24 07:30:00 Isaac Subramanian [facility] - RESECTION [facility] UPPER ENDOSCOPY,SUBMUCOSAL 2018-11-24 07:30:[address] [facility] - INJECTION [facility] POCT-GLUCOSE METER 2018-11-24 07:15:00 Isaac Subramanian [facility] Encounters Start End Encounter Admission Attending Care Care Encounter Source Date/Time Date/Time Type Type Clinicians Facility Department ID 2020-03-18 2020-03-18 Outpatient PATTY CALVIN MDA MDA [id number] 00:00:00 00:00:00 TIMOTHY peter 2020-03-17 2020-03-17 Outpatient PATTY NIEVES MDA MDA [id number] 00:00:00 00:00:00 MILDRED peter 2019-09-18 2019-09-18 Outpatient PATTY CALVIN MDA MDA [id number] 07:20:01 08:51:04 TIMOTHY peter 2019-09-16 2019-09-16 Outpatient PATTY NIEVES MDA MDA [id number] 00:00:00 00:00:00 MILDRED peter 2019-09-14 2019-09-14 Outpatient PATTY NIEVES MDA MDA [id number] 10:22:00 10:22:00 MILDRED peter 2019-09-11 2019-09-11 Outpatient PATTY NIEVES MDA MDA [id number] 00:00:00 00:00:00 MILDRED peter 2018-05-13 2018-05-13 Outpatient Dany [facility] [id number] 04:20:00 07:20:00 [facility] Results Test Description Test Time Test Comments Results Result [facility] e Comments CT Chest Abdomen No evidence of MD Jacobson with Contrast 2 recurrent or metastatic 17:10:27 disease. Right basilar opacity is suspected to represent scarring and can be reassessed at follow-up to ensure stability. Interface, Radiology Results In - 09/14/2019 12:12 PM CDTFULL RESULT:Examination: CT CHEST ABDOMEN W CONTRAST, 09/14/2019 11:38 AMClinical History: Esophageal cancer. Iver Shelton esophagogastrectomy in December 2018.Indication: esophageal cancerComparison: PET/CT from 12/14/[address] of the chest abdomen and pelvis from 12/12/2018Technique: CT of the chest and abdomen was performed with intravenous contrast.Findings: Esophagectomy and gastric pull-through changes. The esophagogastric anastomosis is within normal limits in appearance. No findings to suggest recurrent disease. There is no supraclavicular, mediastinal, or hilar adenopathy.Heart size is normal. No pericardial fluid or thickening. Coronary calcifications.Lungs are emphysematous. Right basilar opacity is suspected scarring and can be reassessed at follow-up. Small left lower lobe nodule on image 95 is stable from November 2018 and suspected benign. No specific evidence of metastatic lung nodule. No pleural fluid.The liver, spleen, pancreas, and the adrenals are without suspicious abnormality. There are small renal cysts. Punctate nonobstructing left renal calculus. No enlarged mesenteric or retroperitoneal nodes. Imaged bowel is normal caliber. Anterior abdominal wall surgical changes may be related to prior hernia repair.No suspicious skeletal lesions.IMPRESSION:No evidence of recurrent or metastatic disease. Right basilar opacity is suspected to represent scarring and can be reassessed at follow-up to ensure stability. POC Creatinine 2019-09-14 16:10:32 Test Item Value Reference Range Interpretation Comme nts POC Crea (test code = 1.0 mg/dL 0.6-1.3 Medica tions, especially 49067-4) hydroxyurea or supplements, such as ascorbate, c an interfere with test results ca using a falsely and significant lyhigher result than expected. If a problem is suspected with a patient's result, a sampl e should be sent to the laborato for confirmatory te sting. POC eGFR-AA (test 101 >=60 mL/min/1.73 m2 Nor mal eGFR >= 60 mL/min/1.73 m2 code = 54603-9) The eGFR is calculated using the CKD-EPI equatio n. The eGFR declines with a ge. eGFR <60 mL/min/1.73 m2 is considered as "decreased" Thi s equation should only be used fo r patients 18 and older. Piyushin g to the [employer] on's Kidney Disease Outcome Quality Initiative (KDO QI) classification and 2012 Kidney Disease Improvi ng Global Outcomes (KDIGO ) Clinical Practice Guidel ine, the stage of CKD should be c ategorized based on estimated GF R. Stage Description GFR mL/min/1.73 m21 Kidney damage w ith normal or high GFR >= 902 Kidney damage with mild decre ase in GFR 60-893a Mild to moderate decrease in GFR 45-593b Moderate to sev ere decrease in GFR 30-444 Severe decrease in GFR 15-29 5 Kidney failure <15 (or dial ysis) POC eGFR-LILLIAN (test 87 >=60 mL/min/1.73 m2 No rmal eGFR >= 60 mL/min/1.73 m2 code = 68842-8) The eGFR is calculated using the CKD-EPI equatio n. The eGFR declines with a ge. eGFR <60 mL/min/1.73 m2 is considered as "decreased" Thi s equation should only be used fo r patients 18 and older. Kerri g to the National [employer] on's Kidney Disease Outcome Quality Initiative (KDO QI) classification and 2012 Kidney Disease Improvi ng Global Outcomes (KDIGO ) Clinical Practice Guidel ine, the stage of CKD should be c ategorized based on estimated GF R. Stage Description GFR mL/min/1.73 m21 Kidney damage w ith normal or high GFR >= 902 Kidney damage with mild decre ase in GFR 60-893a Mild to moderate decrease in GFR 45-593b Moderate to sev ere decrease in GFR 30-444 Severe decrease in GFR 15-29 5 Kidney failure <15 (or dial ysis) POC Clean Dev (test Yes code = 6672) MD JacobsonX-ray Chest 1 [id number] 13:18:54No acute cardiopulmonary disease. I personally reviewed these image(s) along with the resident's/fel low's interpretations, certify that if a procedure was performed I was physically present, and agreewith the final report.Interface, Radiology Results In - 03/16/2019 7:21 AM CSTFULL RESULT:Examination: XR CHEST 1 VW, 03/15/2019 7:24 PMClinical History: Esophageal cancerIndication: Other:, Chest pain/S hortness of BreathComparison: Multiple, most recently 03/13/2019Technique: Anteroposterior radiograph of the chest.Findings:The lungs are normal. There is no pleural effusion or pneumothorax. There is no mediastinal or hilar adenopathy. Cardiac silhouette is normal. IMPRESSION:No acute cardiopulmonary disease.I personally reviewed these image(s) along with the resident's/fellow's interpretations, certify that if a procedure was performed I was physically present, and agree with the final report.MD JacobsonPartial Thromboplastin Time 2019-03-16 01:28:10 Test Item Value Reference Range Interpretation Comments PTT (test code = 91137-6) 34.0 25.5- 37.6 second(s) MD JacobsonProthrombin Time with [id number] 01:28:09 Test Item Value Reference Range Interpretation Comments PT (test code = 5902-2) 13.2 11.6- 14.0 second(s) INR (test code = 6301-6) 1.06 0.90-1.10 MD JacobsonFractionated [id number] 01:22:13 Test Item Value Reference Range Interpretation Comments Bili Total (test 0.6 mg/dL <=1.2 Indocyanine Green (ICG) code = 5096) may cause false ly elevated biliru bin results. Total and direct bilirubin must not be measured from s amples containing indo cyanine green. False el evation of total bilirubin can be seen in patient s with IgG concentrations above 28 g/L. Bili Direct (test 0.2 mg/dL <=0.3 Indocyanin e Green (ICG) code = 5094) may cause false ly elevated biliru bin results. Total and direct bilirubin must not be measured from s amples containing indo cyanine green. Bili Indirect (test 0.4 mg/dL 0-0.9 code = 5095) MD JacobsonPhosphorus [id number] 01:22:12 Test Item Value Reference Range Interpretation Comments Phosphorus (test code = 6817) 3.9 mg/dL 2.5-4.5 MD JacobsonCalcium [id number] 01:22:10 Test Item Value Reference Range Interpretation Comments Calcium Lvl (test code = 5258) 10.0 mg/dL 8.4-10.2 MD JacobsonGlomerular Filtration [id number] 01:22:09 Test Item Value Reference Range Interpretation Comments eGFR-AA (test 101 >=60 mL/min/1.73 sq. Normal eGFR: >= 60 code = 8062) m mL/min/1.73 m2N ote: The eGFR is calcula alisha using the CKD-EPI equ ation. The eGFR declines w ith age. eGFR <60 mL/min /1.73 m2 is considered as " decreased". This equation s hould only be used for pat ients 18 and older. Acco rding to the National dney Foundation's dney Disease Outcome Quality Initiative (KDO QI) classification and 2012 Kidney Disease Improving Global Outcomes (KDIGO) Clinical Practi ce Guideline, the stage of CKD should be c ategorized based on estima alisha GFR. Stage Descripti on GFR mL/min/1.73 m21 Normal or high GFR >=902 Mildly de creased GFR 60-893a Mildly to moder ately decreased GFR 45-593b Moderately to s everely decreased GFR 30-444 Severely decrea sed GFR 15-295 Kidney failure <15 eGFR-LILLIAN (test 87 >=60 mL/min/1.73 sq. Celestina l eGFR: >= 60 code = 8063) m mL/min/1.73 m2N ote: The eGFR is calcula alisha using the CKD-EPI equ ation. The eGFR declines w ith age. eGFR <60 mL/min /1.73 m2 is considered as " decreased". This equation s hould only be used for pat ients 18 and older. Acco rding to the National dney Foundation's dney Disease Outcome Quality Initiative (KDO QI) classification and 2012 Kidney Disease Improving Global Outcomes (KDIGO) Clinical Practi ce Guideline, the stage of CKD should be c ategorized based on estima alisha GFR. Stage Descripti on GFR mL/min/1.73 m21 Normal or high GFR >=902 Mildly de creased GFR 60-893a Mildly to moder ately decreased GFR 45-593b Moderately to s everely decreased GFR 30-444 Severely decrea sed GFR 15-295 Kidney failure <15 MD JacobsonAlbumin [id number] 01:22:08 Test Item Value Reference Range Interpretation Comments Albumin Lvl (test code = 4763) 4.4 3.5- 5.2 gm/dL MD JacobsonTotal [id number] 01:22:07 Test Item Value Reference Range Interpretation Comments Total Protein (test code = 7649) 7.4 6.4- 8.3 gm/dL MD JacobsonAspartate Dihjloceubxzsykq4884-64-11 01:22:06 Test Item Value Reference Range Interpretation Comments AST (test code = 4731) 11 U/L <=40 MD JacobsonMagnesium [id number] 01:22:05 Test Item Value Reference Range Interpretation Comments Magnesium (test code = 6359) 2.2 mg/dL 1.6-2.6 MD JacobsonElectrolyte Tetid1879-78-51 01:22:04 Test Item Value Reference Range Interpretation Comments Sodium Lvl (test code = 7355) 146 136- 145 mEq/L H Potassium Lvl (test code = 6854) 4.2 3.5- 5.1 mEq/L Chloride (test code = 5279) 104 98- 107 mEq/L CO2 (test code = 5227) 29 22- 29 mEq/L Anion Gap (test code = 9325) 13 4- 14 mEq/L Lab Interpretation (test code = Abnormal 15603-0) MD JacobsonAlkaline Foblehmcgpg1686-54-40 01:22:03 Test Item Value Reference Range Interpretation Comments Alk Phos (test code = 4768) 93 U/L 40-129 MD JacobsonGlucose [id number] 01:22:02 Test Item Value Reference Range Interpretation Comments Glucose Level (test 94 mg/dL 70-99 Referenc e range is valid code = 5699) for fasting spe cimens only. Guideline s established by the [place] [employer] sindhu delines (Standards of M edical Care in Diabete s 2016. Diabetes Care 2 016; 39: S13-22) are bryan t a fasting glucose of greater than or equal to 126 mg/dL or a random glucose greater than or equal to 200 mg /dL with symptoms, that are confirmed by re peat testing on a di fferent day, meet the dany bush for diabetes me llitus. MD JacobsonVcxhpnpsGCS7154-00-82 01:22:01 Test Item Value Reference Range Interpretation Comments ALT (test code = 4705) 14 U/L <=41 MD Jacobson.Serum Jkpmnlgsaj9290-94-98 01:22:00 Test Item Value Reference Range Interpretation Comments Creatinine (test code = 5399) 1.00 mg/dL 0.67-1.17 MD JacobsonJxtkbrlyOAX6278-34-22 01:21:58 Test Item Value Reference Range Interpretation Comments BUN (test code = 5055) 17 mg/dL 6-23 MD JacobsonCardiac [id number] 01:20:18 Test Item Value Reference Range Interpretation Comments CK (test code = 5206) 110 U/L 20-200 CK MB (test code = <1.0 <=10.4 ng/mL 5209) Troponin T (test code 8 ng/L <=18 < 19 ng/L = 9384) Sugge st retest at 3 to 6 hours later to rule out myocar dial infarction >= 1 9 to <=52 ng/L Possible myocardial inju ry. Suggest retest at 3 hours. - a change of < 20 ng/L, retest at 6 nury rs - a change of >= 20 ng/L, sug gestive of myocardial infarction > 5 2 ng/L Suggestive of m yocardial infarction Crit ical value will be reporte d when cTnT isf > 52 n g/L and only reported f or the first in a seri es. Hemolyzed speci mens with Hemolysis Index >100 (100 mg/dl or modera te hemolysis) may cause interferences a nd falsely low results. MD JacobsonOvjqnjwdNgwpuddxxobr6924-69-21 01:04:27 Test Item Value Reference Range Interpretation Comments Neutrophil % (test code = 60.1 % 42-66 6491) Lymphocyte % (test code = 30.4 % 24-44 6194) Monocyte % (test code = 8.2 % 2-7 H 6422) Eosinophil % (test code = 0.6 % 1-4 L 5520) Basophil % (test code = 0.6 % 0-1 5068) IGRE % (test code = 5958) 0.1 % 0-0.4 IG RE % count includes Metamyelocytes, Myelocytes, and Promyelocytes. Neutrophil Abs (test code 4.23 K/uL 1.7-7.3 = 6492) Lymphocyte Abs (test code 2.14 K/uL 1-4.8 = 6195) Monocyte Abs (test code = 0.58 K/uL 0.08-0.7 6423) Eosinophil Abs (test code 0.04 K/uL 0.04-0.4 = 5521) Basophil Abs (test code = 0.04 K/uL 0-0.1 5069) IG Abs (test code = 5954) 0.01 K/uL 0-0.04 Lab Interpretation (test Abnormal code = 09480-9) MD Jacobson.[id number] 01:04:25 Test Item Value Reference Range Interpretation Comments WBC (test code = 8034) 7.0 K/uL 4-11 RBC (test code = 6932) 5.03 4.50- 6.00 M/uL Hgb (test code = 5898) 13.6 14.0- 18.0 gm/dL L Hct (test code = 5860) 43.9 % 40-54 MCV (test code = 6222) 87 fL 82-98 MCH (test code = 6220) 27.0 pg 27-31 MCHC (test code = 6221) 31.0 31.0- 36.0 gm/dL RDW-SD (test code = 49.1 fL 35.1-46.3 H 6972) RDW-CV (test code = 15.4 % 12-15.5 6971) Platelet count (test 244 K/uL 140-440 code = 6832) MPV (test code = 6282) 10.8 fL 4-10.4 H INRBC (test code = 0.0 % <=0.0 The INRBC (instrument 5974) NRBC) value ref lects the enumeration of nucleated red b lood cells contained in a 200uL sampleof whole blood analyzed by the instrument. Thi s value maydiffer from the NRBC value reported in a m anual differential,wh ich is based on a 100 cell differential. Lab Interpretation Abnormal (test code = 43309-1) MD [facility]GR[facility] Glucose Gbwypp4813-02-00 00:50:28 Test Item Value Reference Range Interpretation Comments POC Glucose (test 79 mg/dL 70-99 RN Notifie dCapillary blood code = 79506-3) samples, e.g . obtained by fingerstick, ma y have inaccurate resu lts in patients with d ecreased peripheral bloo d flow. PO Sample Type Capillary (test code = 9554) MD JacobsonX-ray Chest 2 [id number] 18:12:44No acute findings radiographically. Interface, Radiology Results In - 03/13/2019 12:14 PM CSTFULL RESULT:Examination: XR CHEST 2 VW, 03/13/2019 12:05 PMClinical History: Esophageal cancer. Partial esophagectomy in December 2018.Indication: Post- OpComparison: 01/02/2019Technique: Posteroanterior, lateral and dual-energy radiographs of the chest.Findings:The lungs are clear. There is no pleural effusion or pneumothorax. There is no mediastinal or hilar adenopathy. Cardiac size is normal. IMPRESSION:No acute findings radiographically.MD JacobsonXR Abdomen 1 View Oarevvoc3530-49-45 16:04:47Unremarkable bowel gas patten no evidence of obstruction or perforation. Contrast is now within the r ectum.Interface, Radiology Results In - 12/24/2018 11:06 AM CDTFULL RESULT:Examination: XR ABDOMEN 1VW PORTABLE on 12/24/2018 9:58 AMClinical History: Esophageal cancerIndication: Other (see comments)Comparison: 12/12/2018Technique: XR ABDOMEN 1 VW PORTABLEFindings: Contrast is seen having passed from the small bowel into the colon down to the level of the rectum no evidence of bowel obstruction or perforation.Stable appearance of metallic clipsIMPRESSION:Unremarkable bowel gas patten no evidence of obstruction or perforation. Contrast is now within the rectum.MD JacobsonEsophagram Complete 2018-12-23 18:59:24 1. No evidence of outlet obstruction. Passage of contrast through the jejunum/jejunostomy tube without bowel obstruction. 2. No evidence of anastomotic leak or stricture. Interface, Radiology Results In - 12/23/2018 2:01 PM CDTFULL RESULT:Examination: FL ESOPHAGRAM COMPLETE,12/23/2018 1:23 PMClinical History: 48-year-old male status post [place] esophagectomyIndication: evaluate pylorus patency in setting of ILE at POD 7 with high nasogastric tube outputComparison: NoneTechnique: The patient drank Omnipaque followed by thin liquid barium . Fluoroscopic oblique and AP views were obtained with the patient in the erect and recumbent positions. Academic Director radiographs of the chest, abdomen and pelvis were obtained.Findings:Academic Director radiograph of the chest demonstrates drainage catheters. Bibasilar airspace opacities from probable atelectasis is noted. Academic Director KUB demonstrates surgical cat in the upper abdomen. There is a moderate amount of stool in the ascending and transverse colon. There is otherwise a nonobstructive bowel gas pattern. A jejunostomy tube is in the left hemiabdomen. Postsurgical changes of ventral wall hernia repair are present. The examination is limited for free air.The patient is status post esophagectomy. No aspiration or penetration was seen. The esophagogastric anastomosis is patent with no evidence or stricture or leak. The contrast passed through the pylorus with no evidence of outlet obstruction. Contrast passed through the jejunostomy tube without obstruction.IMPRESSION:1. No evidence of outlet obstruction. Passage of contrast through the jejunum/jejunostomy tube without bowel obstruction.2. No evidence of anastomotic leak or stricture.MD JacobsonIonized Calcium [id number] 08:42:35 Test Item Value Reference Range Interpretation Comments Calcium Ionized (test code = 1.28 mmol/L 1.13-1.32 5257) MD JacobsonGlucose, [id number] 09:36:24 Test Item Value Reference Range Interpretation Comments Glucose Random (test 172 mg/dL 70-199 Effecti ve 10/09/15, the code = 9360) glucose referen ce intervals have been updated based o n [place] [employer] sindhu delines (Standards of M edical Care in Diabete s 2016. Diabetes Care 2 016; 39: S13-S22).Fastin g blood glucose:Normal: 70 99 mg/dLImpaire d fasting glucose (increa sed risk for diabetes or pre-diabetes): 100 125 mg/dLDiabet es mellitus: >/=1 26 mg/dL Random blood glucose:Normal: 70 199 mg/dLNote: Random glucose >100 mg /dL is associated with increased risk for diabetes MD JacobsonAnion [id number] 09:36:19 Test Item Value Reference Range Interpretation Comments Anion Gap (test code = 9325) 9 4- 14 mEq/L MD JacobsonCarbon Dioxide Awjwl0016-07-78 09:36:17 Test Item Value Reference Range Interpretation Comments CO2 (test code = 5227) 25 22- 29 mEq/L MD JacobsonChloride Satey2054-36-53 09:36:16 Test Item Value Reference Range Interpretation Comments Chloride (test code = 5279) 105 98- 107 mEq/L MD JacobsonPotassium [id number] 09:36:14 Test Item Value Reference Range Interpretation Comments Potassium Lvl (test code = 6854) 4.4 3.5- 5.1 mEq/L MD JacobsonSodium Emdnw9698-39-48 09:36:13 Test Item Value Reference Range Interpretation Comments Sodium Lvl (test code = 7355) 139 136- 145 mEq/L MD Umana ABG+2018-12-16 17:03:16 Test Item Value Reference Range Interpretation Comments OR Sodium, arterial (test code = 140 135- 147 mEq/L 6552) OR Potassium, arterial (test code 3.7 3.5- 5.0 mEq/L = 6550) OR Chloride, arterial (test code 106 98- 108 mEq/L = 6546) OR Glucose, arterial (test code = 163 mg/dL 67-93 H 6547) OR Hematocrit, arterial (test 42 % 35-53 code = 6548) OR Lactate, arterial (test code = 0.8 mmol/L 0.5-2 6551) OR Ion calcium, arterial (test 1.18 mmol/L 1.13-1.32 code = 6549) OR pH Art (test code = 6554) 7.35 7.35-7.45 OR pCO2 Art (test code = 6553) 43 35- 45 mmHg OR pO2 Art (test code = 6555) 171 83- 108 mmHg H OR HCO3 Art (test code = 6518) 24 mmol/L 22-26 OR Anion Gap, arterial (test code 10 mmol/L 4-14 = 9327) OR Base Excess Art (test code = -2 mmol/L -2-3 6517) OR O2 Sat Art (test code = 6532) 100 % 92-98 H Lab Interpretation (test code = Abnormal 72424-0) MD Rodriguez Interpretation Antibody Screen Wqbhnyya2697-55-71 15:13:41 Test Item Value Reference Range Interpretation Comments TMP Auto Neg At the present ABSC Interp time, patient (test code = plasma shows no ____RAIMUNDO MD N 7535) evidence of RBC ALIREZA,Dictate d by: RAIMUNDO alloantibodies. Viri MORALES tated Date/Time: 10:13 AM CDT Transcribed Brock e/Time: 12.16.2018 10:1 3 AM CDTElectronical ly Signed By: RAIMUNDO COLEMAN on 12.16.2018 10:1 3 AM MD JacobsonAntibody [id number] 10:33:59 Test Item Value Reference Range Interpretation Comments ABSC. (test code = 4314) Negative ABSC [id number] 10:33:58 Test Item Value Reference Range Interpretation Comments ABORh. (test code = 4312) O POS MD JacobsonClot Expiration [id number] 10:33:35 Test Item Value Reference Range Interpretation Comments T & S Expiration (test code = 12/19/2018 5318) MD JacobsonPETCT Initial Treatment Gnnbfjac2544-18-36 14:58:30Distal esophageal thickening with focal increased FDG activity may be inflammatory though may be related to underlying tumor. No sign of distant metastatic disease. Interface, Radiology Results In - 12/14/2018 10:00 AM CDTFULL RESULT:Examination: FDG PET/CT, 12/14/2018 7:35 AMClinical History: Esophageal cancer Clarify initial treatment strategy. Endoscopic mucosal resection 11/24/2018.Indication: Esop hageal cancer. Clarify initial treatment strategy.Comparison: CT 12/12/2018Technique: F-18 fluorodeoxyglucose (FDG) 11.2 mCi was administered intravenously via right anterior fossa. To allow for distribution and uptake of radiotracer, the patient was asked to rest quietly for approximately 60-90 minutes. PET/CT imaging was performed from the mid skull through the upper thighs.. Serum blood glucose at the time of the injection was 93 mg/dL. CT scanning was done for attenuation correction, image registration, and diagnosis with scan parameters optimized to minimize radiation exposure to the patient.SUV measurements are reported as maximum SUV based on body weight unless otherwise specified.Findings: Head and Neck: Soft tissue density in the right maxillary sinus likely a retention cyst. Mucosal thickening involving the left maxillary sinus probably related to sinusitis. No enlarged nodes in the head and neck region showing increased FDG activity to suggest jorge metastatic disease.Chest: Distalesophageal thickening may related to inflammation and/or underlying tumor. Mild focal increased FDG activity in distal esophagus may be related to recent surgery and/or underlying tumor, maximum SUV value 4.5, image 126.Central airways are patent. Mild emphysematous changes. No pleural effusions.Moderate coronary artery calcification.No enlarged hilar, mediastinal, or axillary nodes.Abdomen and Pelvis: No focal liver lesions. Calcifications in the right kidney likely nonobstructing renal stones, image 178. No adrenal gland nodularity. The spleen is not enlarged. There is a fatty lesion involving the pancreas, likely a lipoma, 5 mm in diameter, image 149.Musculoskeletal: No sign of bony metastatic disease.IMPRESSION:Distal esophageal thickening with focal increased FDG activity may be inflammatorythough may be related to underlying tumor. No sign of distant metastatic disease.MD JacobsonConfirm [id number] 12:21:57 Test Item Value Reference Range Interpretation Comments ABORh Confirm. (test code = 4310) O POS MD JacobsonHemoglobin [id number] 10:14:32 Test Item Value Reference Range Interpretation Comments A1C (test code = 4632) 6.1 % 4.3-5.6 H HbA1c values >=6.5% are diagnostic of diabetes mellitus.Diagno sis should be confi rmed by repeat testing.Therape utic Action suggeste d: >8.0% HbA1c; Go al oftherapy: <7.0 % HbA1c Lab Interpretation (test Abnormal code = 22456-0) MD JacobsonIffbceikBjrdmegawn5772-02-48 16:02:19 Test Item Value Reference Range Interpretation Comments Prealbumin (test code = 6855) 17.6 mg/dL 20-40 L Lab Interpretation (test code = Abnormal 58826-3) MD JacobsonX-ray Abdomen 2 [id number] 22:11:091. Nonspecific bowel gas pattern. Constipation.Interface, Radiology Results In - 12/12/2018 5:13 PM CDTFULL RESULT:Examination: XR ABDOMEN 2 VW AP W UPRIGHT AND OR DECUBITUS on 12/12/2018 4:45 PMClinical History: Esophageal cancerIndication: Nausea / VomitingComparison: None.Technique: XR ABDOMEN 2 VW AP W UPRIGHT AND OR DECUBITUSFindings: There is no evidence of dilated loops of the bowel. Large genaro unt of stool is seen in the right colon. Post abdominal hernia repair changes are seen in the mid abdomen. Contrast from the recent CT evaluation is seen in the foraminal collecting system and in the bladder.IMPRESSION:1. Nonspecific bowel gas pattern. Constipation.MD JacobsonCT Chest Abdomen Pelvis with Contrast 2018-12-12 21:37:09No evidence of esophageal leak or bowel perforation. No free air. No pneumonia. Interface, Radiology Results In - 12/12/2018 4:39 PM CDTFULL RESULT:Examination: CT CHEST ABDOMEN PELVIS W CONTRAST, 12/12/2018 4:26 PMClinical History: Esophageal cancerIndication: Difficulty swallowing after thoracotomy2 weeks ago.Comparison: NoneTechnique: CT of the chest, abdomen, pelvis was performed with intravenous and oral contrast.Findings: By clinical history, the patient had undergone endoscopic mucosal resection for Remy's esophagus on 11/24/2018. Thickening of the wall of the distal esophagus is noted.A small hiatus hernia is present. A 0.8 cm lymph node is seen in the left gastric space. No mediastinal or hilar adenopathy is identified. Small lymph nodes measuring up to 0.8 cm are seen adjacent to the lower half of the esophagus on images 69, 76 posterior to the esophagus, and on images 91 and 101 of series 5 left lateral to the esophagus. No evidence of esophageal leak or bowel perforation. Coronary artery calcification is present. Emphysematous changes are present. The 0.3 cm solid nodule in the left lower lobe on image 123 of series 7 may represent a granuloma or an intrapulmonary lymph node. No pneumonia. No pleural effusions.No free air. A mesh is seen in the anterior abdominal wall consistent with prior hernia repair. The liver, spleen, pancreas, gallbladder, adrenals and kidneys are unremarkable. IMPRESSION:No evidence of esophageal leak or bowel perforation. No free air. No pneumonia.MD JacobsonLD 2018-12-12 19:52:26 Test Item Value Reference Range Interpretation Comments LDH (test code = 168 U/L 135-225 Results gre ater than 1800 6111) U/L may not be reliable due to matrix effec t with extended diluti on as it exceeds the man ufacturer s recommended l imit. Caution should be exercised when interpreti ng such values and done in conjunction wit h clinical context. MD JacobsonQwzptqluAqxrah9938-88-06 19:41:35 Test Item Value Reference Range Interpretation Comments Lipase Lvl (test code = 6165) 23 U/L 13-60 MD JacobsonOhltwkhvFsshkfu3066-96-13 19:41:34 Test Item Value Reference Range Interpretation Comments Amylase Lvl (test code = 4806) 47 U/L 28-100 MD JacobsonTissue [id number] 11:05:00 Test Item Value Reference Range Interpretation Comments Case Report (test Surgical Pathology Report code = 104) Case: [id number] Authorizing Provider: Isaac Subramanian Collected: 11/24/2018 1134 MD Kenneth Ordering Location: [facility] Endoscopy Received: 11/24/2018 1208 Services Pathologist: Kelsea Hathaway MD Specimen: Esophagus, Lower Esophageal Lesion: Remy's Esophagus ADDENDUM 2 (test m4fpmWLeUZTpfIRkYkThYYRtC code = 3382) HVrb9qoKBGgsOOjWvJfAaOfRf TgBydudQMmKIMrDfPtk1zgi48 8vKZhq4icHDLsKwC0qSUrAWPe zPGpK117k9evq3drvdMzdCA2T SAvELX9TVjwiiSyatW2NYhzyH JxGlR0FYuwmxYcXLzwziHneiZ fQfs2LLWiD402YSC9oIutt6lo WMV6PTNjQTQvIjFiSu0vgCJsW 024PCCzDNPBGIWvhNm3VTNgdg XhydQlwUGGv798G475q3ovZOE hbqKbmHyDynfjc0fuF801EPVj eFHudaUsXaZoIJIlaDFtqSN2S XKaLL5qmiggDFkoYYeoYIArqe Z5NFAgzIHdM9ZxDPCxEW6jtsv dBLO7MXowNNUnFNE2CaPcJIAl o8Xmbqj3KdLbqe6ocy74IXB1s 1GbfPepCJN5FVR2YaGjEt4dpS WyQGYmWK5bIjHijQGcTNYgzc5 0vCjlWSumsaLdyT1qQxUyXZFj nBJuEUUxTH6swSKiRSEbdQ8mz mxjXHBnYnJkcmhlYWRccGdicm HfCq6tuNjqFIM3EQuqY5vjyK2 iCdL6DXcnE2fopJ5mTAl3RTti bYF2UTXmzS8hZH6gnazuw8meP BdcNLgiONTchbT9khI4TWFykF QhC5WljF0bJPNmLE3dgohuz5u fEWG3SVivNHZyZYJ9ItBoRAFr a8Wliof4ZuJpx9NleXZcBPilR 02ar514VTUpepCkR7wtmUGgcc ekxFVidugdZPdjfeE7QGBpYXX sYWluXGYwXGZzMjBcbGFuZzEw MzNcaGljaFxmMFxkYmNoXGYwX FbxT5srKyIrCqMwPDFHPUCjC6 8oZSZfRHNxVJhjLAdcWyZ5ERr wYXJ9 ADDENDUM (test code m2lnfPPyUTInqNNyReFzBMKaY = 3381) URcv4wrFNSgyTTsSzXiEsOvDu EeLrplmCQmHEHbXmFha2vzv17 2eYMjd3cbJSNmDhM5yOJkUOEk fMZuN108PSUxSCnwm5uey1RiK EPalOYpz9Z3RFOFufdgkYx9lC gqR05mt8H1NpbiD5qiEKGqJEl qLIQiZAnuqJAtJMK6LTQvDSZ3 IAqjezNuhgA0YLsukNNtOzD9K Ce3l3ybdKjrCOEjPYB6x8nvZT dzvgMoGS0pvv6mvCh2a0jqhoA aONSmPASvjITZNYEuD8LjtEan Ak6liLc4rPxdWblpUYQ7Exs4S U2cze30pwv8dEakQIFdvudnQh A2UGduAVLhvtvwHHm1OCphFUE vlDF8ZQBplVWcS0RpGJTlXN2y rad0EAI7IBpaCZCaZsP7QGUpj HCeKZTnyIyuKSbnj132KIU4Tc DqJF2sR0Sak8E4eS1whWQjBGP wwNLlGrCmGIWyow4ajRNsOXfz x6AkPMF9wpH3zUXirYUeYBPxO N52Ykabf6NaCrqxAWA7CMWqkd Xms6Mrc1liKnQlfnRsD8nfK6L rQHHdQGVqJOLaYcXxfqPjr9Qf j4EdjOHucQy4p0slCGLsZZJso Olyi0jbJBA1QKLbJ6I1bNHfn9 rmAZteZCAkhWF6avX5FOAmiHT kF4PqgI8gPFSnST7yufu5g1ye QYI3NVvhISWpXpV7xeJ4PRPjf GNvWXYgpDvkMRclv385MCJ4Bd NeAJTcs5RgT4UpkEftP04vgJc zW69hVJGzuGuvmH2khWzteI5w ZjBcZnMyMFxxbFxwbGFpblxmM FxmczIwXHBsYWluXGYxXGZzMj WkUZndIODtzMQoZBjog5TrkwG xrXioSASdOVG1RhDuRTY3HBU1 YEs4uIQdTcDlrFnuDQgiKOF8F lWbSWu4dJWfPzAqcHb5FNFuUX T6IBg3OIe3iKX9PEVgiHu6VlT sWRY0SskoGKw5hHtsYoIvrQb8 BeNkDDZ0GZF6GVe5aRBbBVkjV HFsXHBsYWluXGYwXGZzMjBccG imlF6wEsDjSaShFNBDDMBRF66 aIn7IQXYTMCQUMRQHPwXJKiZE YIPFHxZnMCFJTh3SCOFZLP9ZH VJLRVIgUkVTVUxUXHBhclxwYX XgQWRMDgHmiUCcaU18ly5yrTV 2t8CyOF7xg0JorUPgQXJ5kYMv XHBhciAgTmVnYXRpdmUgKHNjb 3JlIDApXHBhclxwYXIgRklYQV TVW51hPIkPKOXYR8VvVjqEQUQ NO6SIDpNPI1PGK9CXZZ0OWDOm lnOJo0tvQBY7lN0zBGHvjFMkJ L2qBTCtaDB6RHF0TgBeLfF4QE ExMzRccGFyIFBsYWNlZCBpbiB xgCctuSo9HNZcIOZaYFJwNGH0 oC0sEpXaEJ5yNh9xDENcGLB8Q BAnsihcDDJlCSMjlUWlUDF6aB BcczBcbHRycGFyXHFsXHBsYWl fBAWkIBJhJsDkeRdmqV7wQjEx ZySsIHCOMA0yboFtFRLxj77cE f1akYKzmP6oNHF3HZBkggMprC ufANuxUH2gWh5kAZZpXRGpKRw wWNHetYnkoA7zVjEjVpLiTCml LC4aIMMdY4urpYHaIBBrTDVvS 5agWiGjnP0qeAspSHssPsRvSk MyMFxzdXBlclxwYXJccGFyZFx nc4EvmsZanVrvFRVmDFU9VjNo RSZ0HFG7RTt1bLMbRbKayBmqI AzzICK1HnSxUBx6eOGiXeXliG c4RVVgCBY4EZm7ADw5nGZ2SFD afEu7YpNbKFE7VzbzLCd8zUj3 QPIeoNa2XkEuDGE2KBSmSHQei XhhoVqtmC9gVlXzUjMrDHxhaZ RyrjqyPEdqkiDfLCSnHLZ7zBJ nwIDpf9EcIQLjcWQkWKogNZNz VMLcVQA3jmSyXLJ0JlDleqRmP YJfjz3lhDbtKJFlffZuEP8zom gslR2ms2IvBJYswYTqm5LaPpJ oa4EohtUxhaBckh60JWrflpse xjU1mCVyZFpgJRjlaSFfNbATI TJpNGamacSzz3Let0XkJCP6h1 bmRxVpozEoXn5iwIHyYDQaorM nfW8mXRZrOOD4DBnQDAKhNULq ti05SDQxDcKxpKCcBYXJGJSbp 5M7CM4jGTPKIySwf1VwxJs6BI Swr821bf7kZYfrkwHgfrCgmCL 4MYPpm0f9rEH6ZSX6QOLix0F0 JV0nKFXsULMhJIAfvnEyk0vfc 8pzOAYuEKM8evEvdI5nG9JlXA Dus7QllWkmAYGtmHousdKdriL iTH0hhHHln3eiarCyuZAfj4Hy xDT8AUJpsKCnmweqXy3fCFouY PZie1TgvMAwCLZvGVPejJ0wbE KoCFSzLOFckWoot0H1XZ1vK4W 6pBTmFHotE78dMZNfHHQ8oVFs LAWtQARbJCbzOW7zUFNdEJM0t TLioKoky4Dyat0qfYZmDrZjcl 75avNeIMYxpFg0oOA5IDmfKMQ hlGRoCM7nZHZiT9NcfZBgXT9n N5Z9tNWaMOkpK07iQFDdHQT3s GVuIGNhbmNlciBjZWxsIGNsdX W0QDXti4CiQPHdJAkwWOUxZOP xDqQliNb2IUWeKKhjNhmvaNIj blxmMVxmczIwIDUgbWFsaWduY K47IQZbaVvxNRspygAsNRPxCU swmGIuogFeJOPnhYbwaWEdX1U jyExlnRSfpWObSgJqnl70huXe YXZyeNl2iVD7DDgpaaAtiVNbb Rj2YGWnTnGrMMDwQI29LLgbXK 9uXDInxhUilrKhFAtsguXrp6L hzIm3QHtuEDP2rMOlG3UbRSiq P27rKQWuLNI4lLPoKSOjorXhw nKtCWodOKDbdCP3OKBof8VwVH NmLNwrIZZsOWWqWuSqgDu1WIN gXCczZlxwbGFpblxmMVxmczIw HMNyuEGdvOekPE02YNIooZdsT IcjsfWwZIR4PGZjJWOqVR2aNK VyYXRlIGNvbXBsZXRlLCBiYXN msCK5EQIxhTdbg0NyuSD3PNMa oFGgGQ3ismGzf4GcVDBtZOG9y TYelKyizINrGRWuZNI7gTBkZO 4mOFRnsuDrhlUpM2Txq4LrC2Q qD2BrMROxnTrzQTKnc6t5cBHc NZIuRAJhc1LevQd5XONyu3Iit gMpDvpkp6uitzLqCA8eZKOaA5 AdnNZqeNBuwNPkEB0jGFtikAK kzlfaYWmrqkItIZT1ULR4UWpy E9WpbGdftF2sSgHvSgXhMXG6V N9ssTiikuBohWOdFUxmdzJuFD SwNRClf8Hyf13bMGPnwVYwEPI nSZKjx26uSHOfzxKjREUaafVl OEEmleYpPE9mcZDhMS7ffNQyr iKtF6Lvkai6vJMyryGax1ShJ9 YvixRbl5VyuVJcF1LibOUqQBE mRaHnMT0lKSQpY5YikMUpkE9e aXRpdmUuXHBhclxwYXJkXHBsY HvzDHQsSLHzBgOntIsseF4hTa XgVvCyVJOYBCZxzkZnB7C0TZk jVh0igi9rINdoJ9Aqi2EhLaqm H6qpOCVeBPJ5SCCjKkADx0Fio 9MaXJ89TF6bFXNtFJZKApEjB6 3odU9kFQZ8j4EjzYPjt9JwT6M acLHjMfFsHS6oAWI8TLXbp1Uj dHMgZnJvbSBhIHZhbGlkYXRpb 86qb7J7JFsiTValx8TvpQC9lG 6cy3t5GvPuLYY6QjZdQCruOzs 4Sa11ZJCbLECvvm1= DIAGNOSIS (test code d4krvRVtFEDzi9rtGXRugPFfL = 3220) zEwMzNcZnRuYmpcdWMxIHtccn WmDUfsa4WzE8GxYkZjZPprrnY nSJKcVupvifceJXUxWTE9uiNv MOYqPBgkWJKbINfvSf9cnAYnd AcoJzSgYHCyl1nkvnCUkjwtwV h8p0qfKVCsUeR0lITgAJneC2m uqkGspKHvWNCnINo9bN24CRTc dN2xnQCuXMwqiuPdMyJ8NUutB TRqHxW0MNExkCQmGTAcL4pvFK CuQOxjQHSxDTnlyFWuQXJ7tXg de5P4eYMvqYLsjSjpRaWwPhHr ONMUl7BaSXg0xUxtE9PsSORqA yB0yQZfRZYfYRpgGCHoCCDqhd G9hO44JPfsguA0iYBza5Ing10 sh552oW7nlMQpMIX8MENaPKEq jIJmLVDzKQP8PKBazJHnL8t3M iVtpGKkW5L4BpRgrKEbP2U3Kf BikSZqX9A2LmWnrHHnSPBjlRQ tAo5hoKUdlMYbut1usc01FXD7 u4SgjCzsEQC2AOC7PnPfRo5qo JDfMREhXT9cYsVfnLYpZPDziz 42hPweCMhieqBtbO7eSpYeIN7 lpMfpu56kFHPfLJ9tqW1afe7c zrWbDUcstPNflRO0lsgwRCR8K CZwerVkz5DiSFJ7wx9ksKEsmU jdkgUlzVKqVRosR2ScSLLrr42 9PBLlR3DpLZQec8H2pxVwWlWe TMUpcYN0qpO7KRAaBQv7jVIvb uT9krAxhNQzH5rehN35LxFiiQ PuC0BuiF32XbXqzPBbL6RbcR9 5LhBdmFGvR0HbjK73SgJbqYZr PEYwbULyDn8jiDSlaOEsu0Swy BUtBLknP11eu591SOLzoqVrN6 xwbGFpblxwbGFpblxmMFxmczI 0XHFsXHBsYWluXGYxXGZzMjBc bGFuZzEwMzNcaGljaFxmMVxkY lPxFOWyROxvZ1dfXoIvMnOrAD PZLkTNU17LZAQCKCFsANcLX4J FWERHM2UEWUaBJUviKCCKLW8G ZJDFScWIB8CZWTyCVFFJMz1VR 77WLOdnUKgZL1VBBAfYOkeriQ IvAJAcJE7tIW1FNLWAHlVdUML RVn9DVWXOQS8YFDSsTE7NKODZ FBHQGYTCCNTJS7XKJPOCVQLZV BRFJhOHOTPWTKaVRWwaS8uDE0 xFIENFTExTIFxwYXIgICAtIE1 LH3ZQC1KCTZtEWFNFLDTMXXDU YKCsU8tjQIPcLzC7bPJoMOJSD DoxWF3uKMCOIPKybwQaMB7cSY QFB5FrML1XFWDSGjBPPVSdW3B HXLREKETOLNihB7PXDRHHQ9OW FHkcAkDqrU8th9W9TI7cDSChq H3vs4Qrb9TulYLcm0OqME0yWX HpHGJawNwrth2rSO45cHZnVnK cVSKinAxhkl2aOVVpmXLcFHTo LSBQRVJJTkVVUkFMIElOVkFTS J6CZL9BMVQMNTizVTBxVBYdVB 5PIERFRklOSVRJVkUgTFlNUEh RTgTOE6GLQWTcCY2FJYTNZ98o SURFTlRJRklFRFxwYXIgICAtI HHEUWKuMIFBF6dNSKIJSXOZUR RMAzTMHONzAEJWI9JKCHmqRQN FF7hVJFWXKNXLEWCGMnTQU6Sw YB1WATKPXcZzKAFkttAaBIUoE PLxUDLOKMXOO9EVAySPGw2LCC lhGQpKABMBFC4CFqhAJiZEPOF EUYDTYF1iUlDfQNoAZd1AMFjf QzC3II3IRNQDVp4HOHVMAYAAP UVDZL2UXyeUGiddWCBdFO1kID WISNtPRHvpBZQVA5NRNGFODBR XKO2pYADMC5nVSJFWRIBIRfWT ZIrTVFgQOAKKOFPPN2GKDWWAJ SBXSVRIIENBVVRFUlkgQVJUSU HUO5LkQSGmcoLqYP8kZHVcFFb uXGYxXGZzMjBcbGFuZzEwMzNc aGljaFxmMVxkYmNoXGYxXGxvY 8lhEhBcF0KkSXDoCkHruGQrF0 ywXOwHFlVBCPUJL1rKJ1aROXU AYAlMVJTAWHQiNdohkMcvoL1j OkYdAkRzIDxzFG2dEOOwQ9yxs VBgDLGhQRXaT3biAaQvaD7hbS xmMVxmczIwXHBhclxwYXJccGF aYCQLB5NmJYTnkm08CJA3IcDr b3H8WUC5CQKbQEIyd5mhKOVwu GFuZzEwMzNcZnRuYmpcdWMxXG FnZqYbi5ojk034gBCie6yyVEM gPaT7jTIzYHGzjKSfT542PYJs VLexl5fcg9NjMBOuiKTmg5P0S YWMbydhtJl3yCrtX95ns3O0Yg knF2yqCZFqVLWvE9MzYT1pWAQ zFwt6LOK0BIC2SJApZDKgI2Ib JY1mJCStqRGlONu3z6nfdQzrO UGkPCW9e1uiVPzcfpUyGF2tvi 2ezVu2y4rlcwScOLZiPEOchSU HJLNoL4RvnQzvYz2nfZk0wLpj YrnhIEL5Ejj7OU9nml35zcz0h VtsGEKaiqhpNvS8NFqvZSKikl dzHTj1NTpsVSAaoHE5VLXqhJT uT5AnQTBdRE8olsc3HKV1SIsa YDWrHtL3IFEzjMFoENLhrWvrF Gnwv418IUT1UxSwJU4zJ5Asz9 U2rM0vbALbABMpdGOsIkIdLWU nbt4inVCrZMxaq9MuMGG3peT6 mGUidIDuGMPbIoU5UJpvLB1ym z38MPPwROK7oc5hlLHmfKxoio KlsGXbYMglD3SwEUTrr804DEB hF4BiQDFqg3J1nwKuCbIcUKZs wLY1saB5DVAuZW3qpwgyy0ijI VlkYKoqLZXavuL6mwW1EDCnvA BhS6PqgX8ePYFpWN5anrbbh3r oQQE6JTzrIUWoHKA2ItVnXOEf l2Rfhul3PgUsf2SfcYRuJNioK 81bu203XORlczZfO2nwmKSgqt zqbPDiapqgCSxywkC3SLJyFXo xysgdMUNqTYfnM0qaQeUnVNIs bPxgYNubs2TrTCJaPMXfFdTam JTqPJTqYqx4RHZayEHiVDUjEp DrE0kxmfdlQuQWVKUxc9beK6z ryQJHrCMvQ6XhHNqmewJoOJym ZMnqMHV0XGF0Im98OyX8DNEvj n19 COMMENT (test code = x1ijhXTcMWEpiNZwYfNjMBZqG 3359) UJyp2efNLGtwPPrTuRjSvRdSl MwKjusbGWdAKDbSxKqj1vch05 6qMNvs7pfIHUlAgT6mNExPDTb yYTjX606ATHwXZzug0ugn6MpI YNgbTIbi8W9RLSVxqdiaNe0yS zbB35he3F1UoibL4pbSWGiQGM fI3BuDV1fAWRiJcm0DRG2KBM5 UVFvSEExM6MqJK7tTNAzyKGfT Yw8w2tdnLupPLDrUAU2n8ijSG ctfkZqUA8lpb4mpFm8w8imxtO xYBJsGBVbvNJKITFbM5ZfaWbr Tv3kbWz3fLckJzkyKGZ5Qzy1M W6qct81ifg8hWqmFHWvcxllFe R8QCxyBPPywoayHHh2AXftNJU nbDcyMFxtYXJncjcyMFxtYXJn dDcyMFxtYXJnYjcyMFxoZWFkZ DO0QUmtn639EXP0MRkwd9kdi3 xayAShSmh5UQTyLrYbZlrsCIi tw7Ucy0nqVILzjl5kAHE3vOMr nNbrt4L3nQJyVBXesYKmokMhS RFmIqN5AObyAS6plq49ZDYrXV F2hi4loSAkqOsdeyCqqRXzYOz gO1JhVMLaz866DCQkW8SpDASn o8V3edHuPrZnONXudWR8iaE6Q UVrFRz3yNEceeL7naNeaFNuC0 gpgV08VwVrhQAhZ3NsjG50GrA dwVRzK0FtaH04IsZeuOLmT5Mp hL99BaElcTIeLICmoLTdMs3by HGqoZQof6MljGAjYGdeJ66lt9 33VBVmcyAcS6svxBYabjgqdYN jsynbLRarshW1KFn0rsCihuvr bFxwbGFpblxmMVxmczIwXGxhb wfbTHNpZDxmK8bmEjPdLRWkgH bgPFvde3GoHETnHRSlSvCiNMA [id number]= SYNOPTIC REPORT ESOPHAGUS (Esophagus - (test code = 71) All Specimens) SPECIMEN Procedure: Endoscopic resection TUMOR Tumor Site: Distal esophagus (low thoracic esophagus): as mentioned on requsititon form Relationship of Tumor to Esophagogastric Junction: Not specified Distance of Tumor Center from Esophagogastric Junction in Centimeters (cm): Cannot be determined Histologic Type: Adenocarcinoma Histologic Grade: G3: Poorly differentiated, undifferentiated Tumor Size: Cannot be determined: multifocal involving the are of 4 x 1.3 cm with largesst, microscopic calculated size 3.5 x 2 x 0.2 Tumor Extent (Note E): Tumor Extension: Tumor invades the submucosa Accessory Findings: Treatment Effect: No known presurgical therapy Lymphovascular Invasion: Not identified Perineural Invasion: Present MARGINS Margins: Mucosal Margin: Uninvolved by invasive carcinoma Status of Dysplasia at Mucosal Margin: Involved by high grade glandular dysplasia Deep Margin: Uninvolved by invasive carcinoma : Other Margin: Cannot be determined LYMPH NODES Regional Lymph Nodes: No lymph nodes submitted or found PATHOLOGIC STAGE CLASSIFICATION (pTNM, AJCC 8th Edition) Primary Tumor (pT): pT1b Regional Lymph Nodes (pN): pNX ADDITIONAL FINDINGS Additional Pathologic Findings: Intestinal metaplasia (Remy's esophagus) Additional Pathologic Findings: Low-grade glandular dysplasia Additional Pathologic Findings: High-grade glandular dysplasia CPT Code(s) (test z0agfAGpYBRutCNgFvElEUDhU code = 3357) UCsu0guLBQgoNPrEeLcOgPjYa YnYtodkKGnNVGkTmJch8equ39 2mPUdf0wlVPRhUyP5cDTrXCCn yXDdD551ACRfBJyap2akl6MbE BUqsWZxo1R0MVXCtgfsmDp8cJ stJ46sf0I8RvhnM8mkVLYfJSL dE8CoCK0qSBFjEwm5EDT2ZTQ2 OROaDPPjJ8SnUR0uXETqfSZoR Lm2o7neuZlzANOjLFV7y6knMR omogQyBI0xzt3hsMe8z3urnbF qWQIqTFOqsWSFQCOfL6FtlCcg Ok7tyCt9mJihDtmxBQY1Skb1I W1wgo87onb3fNhaJQGpobwyNu B2UKzpWLJsjdabZSc0RBwmKLL nbDcyMFxtYXJncjcyMFxtYXJn dDcyMFxtYXJnYjcyMFxoZWFkZ LX3OIrsd765FXM0DEqyo5drc0 vqkBKkIjq2PCMlDeXdQcxkBGu be9Lxp0rbKOCfmt2zIDP4kXWn wGzbf9N4yIYrYUAdgQOydxLxW JDuTuL9WGtaCV2enz68QIIpVP P9jf6iwHVmsWtftvYtkMBhLZa zH2XaIRMsl009ERWbZ5VeMTNb d2A0ajPuZuNyXGNsqQT6pkE6Z MLoSZu2rRSvqzC6cfKimZAbD9 gfsU00EdQqqITbA3LpfK03LmN hiHKeP4HbrX06WuGlmPIwU8Sw fB43WnGoaJUaCOFodKWvLs4qr GWwuRSob5EmvIRpTUocM30bl2 33ZOQuydKaP2nzxVLcdggfoJH vgecuZFjfgdX7RKUpBCVjOUzl XGYxXGZzMjBcbGFuZzEwMzNca GljaFxmMVxkYmNoXGYxXGxvY2 hcZjFcZnMyMCAgODgzMDkgWDF ckDNhMIh1JkJfXJbuYHRoky0= SPECIMEN SOURCE j9kkkKSjHEXioQFiSdQjFODwQ (test code = 3377) YVjt1gnRGQhfCRoEwDzGnSdGk ImJgjogLZrZPMiLaWht8jiw85 3gIGml7zzHVEiIzC1aNBlXXKl lSPlL634XYSbLDvmc6wlt3MzX VNquLVxe3S7KRXLixzkwAa7uB izV80oc8F7EgklG6stVOApZFC rY1GoGK5oJVQaDsj3SAG3DNF1 ABIlSTFyN9MqPF9lSSEmuITnQ Vx7a4yxoUbjWTYpGGV5e8opDN bdgsBvYU3yqu1kxCl9g8doygI zYBQeMSOrwFQGOANqH5UmsBrz Ld2evUx5fPzsOtbrVFK5Ftq1L N7stc98xeq3fIfvNSFacpgrKr U8WZceGKDruuhvMCa5WIzzMZM nbDcyMFxtYXJncjcyMFxtYXJn dDcyMFxtYXJnYjcyMFxoZWFkZ VU6SGtba219SGR8JXwyj5kyn0 jlwCHkQjt5LWLaYsQvOlruGIl ug5Okj0ufUTEbmi4jHOQ3aNYc qNsfz6B1jPDlKKAlpXNglyAjF HLoUiY1JPleVH6hcr45IQRrAO K2vu5xvUUqeQivgtFxoLWwELn sG3QnESQgd048MEWnV4PcITHy k8U5gvSmJiJtRRLcvXK5ikR2O KFaVMn5fSNgadW8luFbeTMnA4 qcyI32CtMlcIPoZ6KleU99KdL ynALsV0LrtZ06ZeEmuMTuD0Ym kN73JdAjwUKcNHYhzAFrDt0fn PGvwLFhk5ByzOIgTGitB85gh5 11DWVewlRjF1shdGMqtxfalGM fexibDYmgpvT1HPDkWTWdLTim XGYxXGZzMjBcbGFuZzEwMzNca GljaFxmMVxkYmNoXGYxXGxvY2 hcZjFcZnMyMCBSZWNlaXZlZCB bsgMulpArnOSbhSKwvQ56LJBf JVNqpFqaK2BsiOXmJUPcc62sI KVtjwCraMYfueDzx21ieKBjxV MiXHBhciBQcmVvcGVyYXRpdmU vQM6rXRKfj3PdqMChHKQosaAs EMmbT77rk6XuDNUznpFkdSOuh zPjj58ocMOrcBKad4t5eZWneA NwbGFzaWEgXHBhcn0= GROSS DESCRIPTION m0xwlOKcCRVdiADrKzIhGYDlA (test code = 3366) IIqq3iwQRFiaPBiRjOpRkRcAn BnUpiseRZyLMFfTnZrp1rxx35 2aFQli0yuEPSsHuF6sNNzQIXn jQUuV528XXCtPVidp6azz5JaZ FIppCFze4G7ALCHulfcjNn4lL tkR49je5Z3SupmL2dgLMUpZXw tBTZvVOeroTVnBTC3CIVfGTI4 JWtpcrAompI1YPpnwKJqOoJ6H If4r3rcrGwaKGTvMTT0c4rePT wreaAcFN0jen8uiBh2y2yaeuX lNXCrBARdgHLJOZNvD0CrnIwz Zo7dyEz9vDfcGbupTFH0Mcy4U R9hnu38vhw7wEcfAQNczlfsLc Z2FOkeDHVpyqchBOe9ALkrZZH nbDcyMFxtYXJncjcyMFxtYXJn dDcyMFxtYXJnYjcyMFxoZWFkZ JA5MXolq435MQW1IBwwl8diw5 bvaXWtEql0VLOrDgQuQfhfVKq py1Xdz0euWCXplw0fLTL6eMIv sZbqq5W3eZVlOXTxbMAnzoHbO MZsWdE3DCttVF1rqw59QCWbEB A5qj8zvAYbkTdygeTotVVeIUf hL9XmPJNtn236EGLjH1YkUWWt n7O0wnZxLkNiRNOkjNC6niI5A VIyUDv1aRKjxsM6emNqfIKqH1 ibvB14QvNkjQFsY0ZqzD92LzU yaAUfC1PpbR11IxQjrQWfH7Za yV84GeDiyXMqEVDliYEgPw0ce INmxTFdb0MreILuEUdiU74ts5 30PKKgghMbE7dzfMSuldbdgQP pblxmMFxmczIwXHFsXHBsYWlu CWMbHZPcJzHqzVxvuJ5wAeOlL nMyMCBSZWNlaXZlZCBpbiBzYW lhkqSfhAFuHOaoNCE4oSLbKGY gHTSfQYAtTV55Q9XjlkNnNAyv DSJmKZEkgL3cVS63hSOnfoFfc uWfVhIgm9LyGBi3uqOexFXhZX 8nDZ8fNZcyZS04XImpPD7aZAJ kHWveovGofZplmmQle2U2hK4f WG9yURKdmh2yGZGyqN3raKqqt oTctWHxu9KkvHrfksPrUJTwPQ DtuEayY6Lqj4Zga3X7uz8kc7I oArFQnaMpCL1rFI9fVDCdWGQc oNtji1JiYP5dzQYiQDPhZFXNT umyv0dvO1yntUYkYXIswKMtYC JpbHkgZGVzaWduYXRlZCAxMiB fA8Ise9EdKaZTmPKbASLervAg TFHnWTJ0DWPpZaIxdNGyzbOkL P9uNL44G71gUMgdkWyuwf9cwo shIWt4SS9xwQ1uVHHqw39dUbQ eN2Kbz2YxRDDpBRtqtngneL7y du7mVOodaaFjCGTvEX12kMEvz PqcYRSstiqogsJxOI1gXAErYH WtacEhY1mbSiSlZiZuQR6eYLQ tFsRHdyKnrc3asKirGGbqBZNo BrSbbQGdak1dBEFsLQIoWmHzA 6Okk3BtAQ1hizdeghltfNysAW dgfyiuh8Hzcx6tgKqrOUvpULN iErSiuDQvfr6sLALbOPExBS3p S8ruR4gbiJWtC6cuVBKzkvTeG O3oeLeklgKcu2X7dVIaiPShCO 01QPBcFJOoj37grQxtDEzxnix usD6yprHmBEAkkX1fFECaKISl tZTwqL1qdeEeklNjZUUlPMocr UJsHIU7hC9vLEYkBF7pOSZjbB orUVe6PAX7Jd1huVYoDGFpIIW 3PZ74lBXxkQtbbX0iEHCwJUNs XRHyjjXfc2IxfAEtdLBsDGHpl 3NldHRlLCBlbWJlZGRlZCBvbi BlZGdlLiBBIGRpYXBocmFnbSB oE6LiyOCqatkuKTW7dITld7Uf K1zwQE7jGAFylcvlQKQkXX5vY QDdFRH1JBSfejNNxFQlSKWxKY nzuWHjZOKfcU1cDFUkhdFOyCP eec8yXONbWG6baoazprvhVVOp P5yxUXjwFDFrjh5= MICROSCOPIC d3hcmMOzRNHziIFlJbVkTHGoB DESCRIPTION (test MOxd0dvDNQsvIRnWyPfYsMlRg code = 3371) MjTbgfyIPqFRKvKqSce1utr51 5lFPuv0apDMAmWcG6qNBhPZDe mHDfN862UMRbSXqjw0eua4MxF MQktWPtg6K0XUWKswnocHy1zG ymW78hz4J3EvtuN5nvNDFpNXN iC4OuZP4iCTYvVcd3VWK9JSH1 EXCpTSEsD8NpRQ0xAOPeaVQvC Ni6a8bioOofNLVaCFG4g0qnDY pindVuRT4kah2vjBs5y3egdwX qAOLzCSKbbHPJRXUpT3SeiFey Fo8uuVu3fGopYfqjUXK7Iwe8N H0txq80ejn1nRjfJZKdearvFe Z6JYhjGGUaezgpSTk5FMzqBYZ nbDcyMFxtYXJncjcyMFxtYXJn dDcyMFxtYXJnYjcyMFxoZWFkZ SF9TYuuz265YTR3XTnni9vww0 wnpNOyMbv6RNLbWkLoBpkeXWx ko1Chj3koRIHnsx7xUWM1oHFn tMyxd8W5qJWiYEVxuDScvfBjI CGgVlW4KIddGR4hcp05TBYcZZ N1no7suHNegBdgshJvlSBaYTi vX2YqPCTpv185PUGaV6OlIQFb z7T7liFdCxFnTQWdpZM5zhF2V QFnKEr6hARggbF6uyUbhJWiC2 qaxA79GrXcyMMyG6EobT17EhP kxACgJ8FhzZ14NyLrvSTsY1Hn tA45LsNlhKBtIAKxdAUgAy6bt EUdbJOmn9CacIIrSNqqN87dz1 83PRLbjnWpV5uaeJOhqtaqcCE hrsyfPXduarK6KERxsgWkd7Ui IPLuAPG3AWrzNKl5zMh8SZBec DbnhRgciR0zXeOlQpRvECjoEN 0yQJWbH8iwoMXuCHDrRVWyB5r iLwVmoC1olRmtIGgndmYfFTXj SNO5uN2ajyNbk5WrRQ2aOVewE KB6TVUpOXKaGQ8pDKkdEKK5fC 2nMEWpn5rwqV0pozr3ZETpKuC kbiEpvCqweYHlEWS8eG6tEZfn mUpap5ykO5uxMQPqaUkpgL7jk MkiYAKkS5gble53flAgb7Xgc9 VsbCBkaWZmZXJlbnRpYXRlZCB 0tD3usjblmWvieQUtbcNlTWFw ifYqiQ98KMifOVPdXOR0g0FqL FHaSFTmyiJnp2e1kTYkwwAxpH NiOWArupNzuC65LOXgbbPsvEF 1oAVhnaKqQSXfjaWOwMZihNG6 zS52yNLkMQL2nLSmPcIxvuAoj 2lvbiBpcyBvbiBzbGlkZSBBMT Wvk9v1iRGtwEMhr7bzmTA2FEv 1XCNwKhPktDIhlEYwo7TxUsCe oGZvToLqsdXjpBOzhJJzq5Ozf JGwc7StDrxqOSEfVFJfXEXlLT 8tSMHdOLXkqnHkSV1niuealzW gPGGhKP9hE8E3gEFrVLXyuiKz wmYlv6r1RGMiQKXvbK9dnRHkZ IPseiDzNB35ZZPlfrMcHBLpby 7nTCOjlW4bgWQdbIGkT8nwb6S usOOgwfScf3npLBVpxT7xrUsq FSNoPQOnaLReA2mlIV5dPGXqv WNlIEExMiByZWFjaGluZyBhcH Nke2urdML5TIt3YOgvHB2nZ0V nifFxJdVkzKR6aLLyFTNdmWMn VPNxzB0sNY57nUWihUdvCEDnQ HJzVK8sXTYqt7raiIQfNV2xny fquhUvQMLyPOGur1q4oIRjEAG ownHhzZekWNkyZVUoNPA3l2Tm AUGwFL7lBJCunfBGOZBtYTgpo HOjc1B3DAnzZGmucgVed64yFC 6aGWWmOIPileGqAVG5YvFHubB bYUHuxbw4cNLmXJa9fPTye6Pr t6Y7aCOrSCkrqtCwfW6fWTyaG L3paTBiEtnuMCN9 SPECIAL STUDIES y9ftmGNzEFQboPIgJoEsRKQdE (test code = 3376) RKlw3nfSNLuyYAhWtTtIoNpJi HrTcurvQZtGWMvAfUdd0eec84 6yJPck7skHMWvDnO3xZQtZXQw vBZmB829FAIvNGmxs8pdr8NmQ HJnbDNij7B3DNSYNUrcObXdD5 87PRXwSZoac7tes7UgXNPlaHR tl7M7EGURpgjexJm5nXxdR11u x4U4ChgmV7zkNMEfXPLxS1VhT B8wDBPoNta8IJH4QOW2INFuKD BhI3TwNE2pZRLrbTHrJPp7q4h akSgyZCRzIOT6m1blAAyfkuC1 PW4kic8uhCe5q2ffxrOvKAExJ THbcSOXNZIbS4GqkRrdPd3lgV c8t7wsGqcbukJ9pXAzGyLwKkX mSIupzVXrryizKCDrOHL1sQXO QRb3R454y6dmRWMswtQywJaAo iebs7uhX765TOZhkUCikeVtWo StCTOfuIYenYY2QOKtKD4jfuv xFvHxFM0kuznrChUrZJ8cyyt8 GnVpZP7tdjasKsCqTAqnHHUzq ndjHWCrp6UmzzxaZX6aF3Zxb7 Y3wD4cbTSlWHTxpHVfQhOfNNC dew6smZJcZUrxRFF2GMDbulWt w5Koa3frDxChhrEkA6ecT4HbI KFwFWAvNHSdFxBvfgEml6Cdw9 RyhYUcmRa2o0xuEMIoJYAkjBh gx4xkNEA0MTCqM5H1mMFsy1ym SHviUWIbiXV0jyowGAztLRIss yN6rsztCJpyAMClcYZ4vsoxKS saHWWpXvG4whkhGHhgSJAzRLU 5BNxei313CVE4FNjqUqlwTEot XHBnbmNvbnRccGduZGVjXHBsY WluXHBsYWluXGYwXGZzMjRccW idhLssxH2eAxUyHjPhJezsBX4 zOXGyB6hpfWTxUIAsVQBqD7rx LcQcoN7wgCxwOTdyBeFcEoVaE nYHrPAorR21BVWgfxT2CKVgb1 3uq4RvqPpiroFxFXTrLOwmT7w 4BUUtYCZtKLQ5t7Uzz7LpsS0p zL8ndKpeoA9udDWegML5oohne 3Rox6UpA2uzwNEycQHmwaCtOH BsYWluXGYxXGZzMjJcbGFuZzE wMzNcaGljaFxmMVxkYmNoXGYx KNbkL4kaLcIiT2HwHNMmFhCps OGaW7pvrVPlRGKywdtkzQOofe xmMVxmczIyXGxhbmcxMDMzXGh xT2tnIaDwQSOftCquWNjor1Yz XGYxXGNmMlxmczIyIENvbnRyb 8ncD7euTHIdAMV7JK3ifxWsWr KmCV2vxU22d9Prm70lj92xrG7 aaIZoqxNtM59dtOXgnSXza2Vg YQVrevYhcKD7ZRTiUJnvzltka 1z9yRV0vOTvjCTgyMV6cYLtjU AbWDSKgEDcQOWht868bt2aOSS pzRBiemPcsG8uTQcracyaeTCl KW9kLQCvNWEzRIPnTG44wuAcP D9xzPRnm8dbcsTtcSJyd0IkgI R0PCOptAKlykfxLr5uUZ28DJS eGGnpzF1nvONohyJnBJ8yTL3y T6L7kKBjUYPaouVoj7qdTXbgZ K6qSLXvhUzlUsqlZUMnCUZjtv XrgZG9IFKxnBhqeQ2lNlOcBdL gGqnpXW1aOCEhW7suaLBwCZEs PROoK1vkUzMylL6ztJdcTWbwZ jJcZnMyMlxsdHJjaFxwYXJccG bytO4fVaGjFrAwMpszFN6nMKL iW5safROfEYPjIPTfV8wgUcVa oC5smIppQXmjRqRuGiBvJbFkA HBsYWluXGYxXGZzMjJcbGFuZz EwMzNcaGljaFxmMVxkYmNoXGY yBSuzL1bqZxPlL3KrTLKfKsDq zFYiS0bmjURcUKUyVIliDKUqQ GZzMjJcbGFuZzEwMzNcaGljaF soGDeaQcZkSXWxNGleE1soDzV vO0FxSCSfCmPlNS2qoK1wbIdx cV5gqOOshCW8tsvzvIMlhF5fB 7AnGSPqq3Mklngyt4GeDTMvic Tlzn1cXEBydTWMLYgex8RtM8W sZPb5q0BmhFjhaU4lYdMoPdMf BlecJW9tBSJoW5aeyPChDIFjP KGuG8ukUoAhvK2eqDdiZCdyFj CgBnWkMpx5BAToSmGpJranHXZ sYWluXGYxXGZzMjJcbGFuZzEw MzNcaGljaFxmMVxkYmNoXGYxX KbrX9lmBlDhK4CsKSCfYoHnbo UKDNGfK1RoKXLumqPkrquuCCI 3mW2sj9c7SLzaRt5jNCApdbli g5fpjcBphSEgq0RaDQUcrpDin 3BlZCBhbmQgaXRzIHBlcmZvcm 0gddVzATJzHNNtS7DmupkemKq aydQ5BYHkOLIirOWwrJynOGRs THb9CQetvaRtk7ZkTeKpeuXbh KOepxBhHA8wHGLfjMLelmMfJN G1XONhRCAISbDvGPVlm2DqWW0 mPGKglSacQOZonS9oh7WhDYCu g46zEENaCBUVUPCgwJHkBQPre GVybWluZWQgdGhhdCBzdWNoIG GfDDYqIM0tAFZvviZbiKYzk3S vvMBnndXlj2MlyuKwOSAqCVB0 PfMFrQCojXZgsJUowgM3z2MjT GZvciBjbGluaWNhbCBwdXJwb3 Nxzv8yVLAdl1gdpYhmJY3ghUW iZSByZWdhcmRlZCBhcyBpbnZl m7OeJ2Q0eO2rCStlb9RvJh7zX KSpm2JkiqOrLrCCvQkqRIdjPz 3rVAFelfhcwNMwW4XvzOsqoZV kIHVuZGVyIHRoZSBDbGluaWNh cJLQFLBixzO7c9C4JVzvxMAit vByYQ33SWMqHI4imPJawBQxx0 NoNEf5RXOgM9sBEV30WBwiZUE gcXVhbGlmaWVkIHRvIHBlcmZv dc0yrLycfEHwe03fsWA6cJG9L GZcpY0vR3UvWPltYi3yDUXehp uhuFEezNqnHv1wnAoqiV7xFzT pSrQsIpxvVZ4pABVdL1iuoQYg BJNyPCBuO4erHiVwjC8qqXzqN lxmczIyXHBhclxwYXJkXHBsYW bwOHVoSBVfJgFhnVqcnX8qShT cZnMyNFxwYXJ9 [id number] 11:05:00Surgical Pathology Report Case: [id number] Authorizing Provider: Isaac Subramanian Collected: 11/24/2018 1134 MD Kenneth [facility]ing[facility] End[facility] Received: 11/24/2018 1208 Services Pathologist: Kelsea Hathaway MD Specimen: Esophagus, Lower Esophageal Lesion: Remy's Esophagus CPT code added: [id number] electronically signed by Kelsea Hathaway MD on 12/12/2018 at 11:05 AM REASON FOR ADDENDUM: TO REPORT [id number] BIOMARKER RESULTHER2 by immunohistochemistry result Negative (score 0)FIXATION TIMEFOR BIOMARKERS ASSESSMENTCollection date and time: 11/24/18 1134Placed in fixative date and time: 11/24/18 1134Removed from formalin date and time:11/25/18919 The tissue was fixed in 10% neutral buffered formalin for a minimum of at least 6 hours and not longer than 72 hours. Her2 was assessed usingantibodies for clones 4B5 (FDA Approved [facility]). HER2 positive control was evaluated with test tissue. These control slides run alongside of the patient's sample show appropriate staining. The results are reported as follows: negative (score 0) when there is no reactivity or no membranous reactivity in any cancer cells, negative (score 1) when cancer cell cluster of ?5 malignant cells have a faint or barely perceptible membranous reactivity irrespective of percentage of cancer cells positive, equivocal (score 2) when cancer cell cluster of ?5 malignant cells have a weak to moderate complete, basolateral, or lateral membranous reactivity irrespective of percentage of cancer cells positiveand positive (score 3) when cancer cell cluster of ?5 malignant cells have a strong complete basolateral, or lateral membranous reactivity irrespective of percentage of cancer cells positive.Reference:Kieran M, Cuca O, Alia Maguire, et al. Assessment of a HER2 scoring system for gastric cancer: results from a validation study. Histopathology. 2008;52(7):797-805 Addendum electronically signed by Rica Hathaway MD on 12/12/2018 at 11:05 AMA. ESOPHAGUS, LOWER ESOPHAGEAL LESION, ENDOSCOPIC SUBMUCOSAL DISSECTION: - INVASIVE ADENOCARCINOMA, MODERATE TO POORLY DIFFERENTIATE WITH SINGLE CELLS - MICROSCOPIC CALCULATED SIZE 3. 5x 2 CM x 0.2 CM - TUMOR INVADES THE SUPERFICIAL SUBMUCOSA (1.2 mm out of 2 mm of submucosa or 1200 micron out of 2000micron) - PERINEURAL INVASION NOTED - NO DEFINITIVE LYMPHOVASCULAR INVASION IDENTIFIED - DEEP MARGIN AND LATERAL (MUCOSAL) MARGIN ARE CLEAR FOR INVASIVE ADENOCARCINOMA, (DEEP MARGIN LESS THAN 70 MICRON (0.07 MM) FROM THE DEEP MARGIN - PROXIMAL MUCOSALMARGIN, POSITIVE FOR HIGH GRADE DYSPLASIA WITH CAUTERY ARTIFACT - AJCC PATHOLOGIC STAGE pT1B NXSJ/p l Signing Pathologist Direct Phone Line: [phone] signed by Kelsea Hathaway MD on 12/07/2018 at 12:09 PM BETHEL/Lázaro (Esophagus - All Specimens)SPECIMEN Procedure: Endoscopic resection TUMOR Tumor Site: Distal esophagus (low thoracic esophagus): as mentioned on requsititon form Relationship of Tumor to Esophagogastric Junction: Not specified Distance of Tumor Center from Esophagogastric Junction in Centimeters (cm): Cannot be determined Histologic Type: Adenocarcinoma Histologic Grade: G3: Poorly differentiated, undifferentiated Tumor Size: Cannot be determined: multifocal involving the are of 4 x 1.3 cm with largesst, microscopic calculated size 3.5 x 2 x 0.2 Tumor Extent (Note E): Tumor Extension: Tumor invades the submucosa Accessory Findings: Treatment Effect: No known presurgical therapy Lymphovascular Invasion: Not identified Perineural Invasion: Present MARGINS Margins:Mucosal Margin: Uninvolved by invasive carcinoma Status of Dysplasia at Mucosal Margin:Involved by high grade glandular dysplasia Deep Margin: Uninvolved by invasive carcinoma : Other Margin: Cannot be determined LYMPH NODES Regional Lymph Nodes: No lymph nodes submitted or found PATHOLOGIC STAGE CLASSIFICATION (pTNM, AJCC 8th Edition) Primary Tumor (pT): pT1b Regional Lymph Nodes (pN): pNX ADDITIONAL FINDINGS Additional Pathologic Findings: Intestinal metaplasia (Remy's esophagus) Additional Pathologic Findings: Low-grade glandular dysplasiaAdditional Pathologic Findings: High-grade glandular dysplasia [id number] in one part "lower esophageal lesion, Remy's esophagus"Preoperative and postoperative diagnoses Remy's e sophagus with dysplasia Received in saline labeled with the patient's name, accession number and "esophagus" is an 8.3 x 4.9 x 0.1 cm irregular portion of tucker-red to pink mucosa pinned to a piece of styrofoam. One end of the styrofoam has an "O", which is arbitrarily designated 12 o'clock. There is a 4.0 x 1.3 cm area of mucosal thinning extending from 3 o'clock to 8 o'clock. There are multiple pink-red nodules ranging 0.1-1.0 cm. One nodule is 0.3 cm from the 12 o'clock margin, the largest nodule is 0.6 cm from the 1 o'clock margin, and another nodule is 0.5 cm from the 9 o'clock margin. The specimen is serially sectioned and entirely submitted sequentially in A1-A31, one strip per cassette, embedded on edge. A diaphragm accompanied the specimen.Ink code:Blue-radial margin Black-deep marginCG/ewThe tumor isseen in A9 to A15. The tumor show poorly differentiated tumor with single cell in the background of well differentiated tumor, high grade and low grade dysplasia and with infiltrative invasive pattern .The maximum depth of invasion is on slide A13 with approximately 1.2 mm out of 2 mm of available submucosa. Deep and lateral margins are negative for invasive carcinoma. Invasive adenocarcinoma is closest one slide to the deep margin on slice A12 reaching approximately 70 microns from the deep margin. Multiple areas of proximal margins are positive for high-grade dysplasia. CD31 immunostain was done on A10 and A14. No definitive lymphovascular invasion is noted.The interpretation of this case included the use of immunohistochemistry or special stains.Control Slides Examined: In-house known positive controls were evaluated along with the test tissue. These control slides run alongside of the patients sample show appropriate staining. Internal positive and negative controls when available are evaluated Immunohistochemistry technical testing was performed at [facility], Pathology Laboratory where it was developed and its performance characteristics were determined. It has not been cleared or approved by the U.S. Food and Drug Administration. The FDA has determined that such clearance or approval is not necessary. The test is used for clinical purposes. It should not be regarded as investigational or for research. This laboratory is certified under the Clinical Laboratory Improvement Amendments of 1988 (CLIA-88) as qualified to perform high complexity clinical laboratory testing.OSI Barium [id number] 04:08:23For comparison only. No interpretation requested.MD JacobsonOSI [id number] 04:08:12For comparison only. No interpretation requested.MD JacobsonTMP HCV Ab Path [id number] 14:17:40 Test Item Value Reference Range Interpretation Comments HCV Ab Path There is NO Interp (test serologic code = 8923) evidence of ____MIRIAN THRASHER Hepatitis C STEPHANI virus antibody. Evette WILLIAMSONa alisha by: MIRIAN WILLIAMSON,Dictated Date/Time: 11.14 9:17 AM CDT Transcribed Brock e/Time: 12.06.2018 9:17 AM CDTElectronical ly Signed By: MIRIAN WADE, on 12.06.2018 9 :17 AM Dany JacobsonHepatitis C Virus [id number] 03:21:10 Test Item Value Reference Range Interpretation Comments HCVAb. (test code Non Reactive Non Reactive Performed at: = 5762) [facility] [id number] [place] [address] [phone] MD Garsia Culture - Routine (Left Venipuncture)2018-12-04 02:00:00 Test Item Value Reference Range Interpretation Comments Result (test code = No growth in 5 days 6463-4) [id number] 02:00:00 Test Item Value Reference Range Interpretation Comments CULTURE (BEAKER) (test No growth in 5 days code = 1095) BLOOD [id number] 02:00:00 Test Item Value Reference Range Interpretation Comments CULTURE (BEAKER) (test No growth in 5 days code = 1095) POC-Glucose [id number] 00:27:00 Test Item Value Reference Range Interpretation Comments POC-Glucose Meter (test 181 mg/dL 70-[address] [facility] code = 1538) [address] [facility] 7703 0 Lab Interpretation (test Abnormal code = 32957-8) [facility] [id number] 00:27:00 Test Item Value Reference Range Interpretation Comments POC-GLUCOSE METER 181 mg/dL 70-[address] [facility] 6720 ([facility]) (test code = CYNTHIA Niño [place] 1538) [address] POCT-GLUCOSE [id number] 18:16:00 Test Item Value Reference Range Interpretation Comments POC-GLUCOSE METER 232 mg/dL 70-[address] [facility] 6720 [facility] (test code = CYNTHIA Niño [place] 1538) [address] POCT-GLUCOSE [id number] 12:36:00 Test Item Value Reference Range Interpretation Comments POC-GLUCOSE METER 125 mg/dL 70-110 H TESTED AT [place] [address] ([facility]) (test code = CYNTHIA Niño [place] 1538) [address] POCT-GLUCOSE [id number] 07:41:00 Test Item Value Reference Range Interpretation Comments POC-GLUCOSE METER 108 mg/dL 70-110 TESTED AT [place] [address] ([facility]) (test code = CYNTHIA Niño [place] 1538) [address] Basic metabolic [id number] 07:06:00 Test Item Value Reference Range Interpretation Comments Sodium (test code = 140 meq/L 239-823 3465-2) Potassium (test code = 3.6 meq/L 3.5-5.1 2823-3) Chloride (test code = 105 meq/L 98-107 2075-0) CO2 (test code = 25 meq/L 22-29 2028-9) BUN (test code = 10 mg/dL 7-21 3094-0) Creatinine (test code = 0.97 mg/dL 0.57-1.25 2160-0) Glucose (test code = 159 mg/dL 70-105 H 2345-7) Calcium (test code = 9.2 mg/dL 8.4-10.2 89697-0) EGFR (test code = 82 mL/min/1.73 [place] [address]-3) NOT ACCURATE CREATININE CLEARANCE IN PREDICTING GLOMERULAR FILTRATION RATE . ESTIMATED GFR I S NOT APPLICABLE FOR DIALYSIS PATIEN TS. Lab Interpretation Abnormal (test code = 15595-3) [facility] [id number] 07:06:00 Test Item Value Reference Range Interpretation Comments SODIUM (BEAKER) 140 meq/L 136-145 (test code = 381) POTASSIUM (BEAKER) 3.6 meq/L 3.5-5.1 (test code = 379) CHLORIDE (BEAKER) 105 meq/L 98-107 (test code = 382) CO2 (BEAKER) (test 25 meq/L 22-29 code = 355) BLOOD UREA NITROGEN 10 mg/dL 7-21 ([facility]) (test code = 354) CREATININE (AKER) 0.97 mg/dL 0.57-1.25 (test code = 358) GLUCOSE RANDOM 159 mg/dL 70-105 H ([facility]) (test code = 652) CALCIUM (BEAKER) 9.2 mg/dL 8.4-10.2 (test code = 697) EGFR ([facility]) (test 82 mL/min/1.73 ESTIMA ALISHA GFR IS code = 1092) sq m NOT ACCURATE CREATININE CLEARANCE IN PREDICTING GLOMERULAR FILTRATION RATE . ESTIMATED GFR I S NOT APPLICABLE FOR DIALYSIS PATIEN TS. POCT-GLUCOSE [id number] 20:24:00 Test Item Value Reference Range Interpretation Comments POC-GLUCOSE METER 101 mg/dL 70-110 TESTED AT [place] [address] ([facility]) (test code = [facility] 1538) [address] POCT-GLUCOSE [id number] 13:26:00 Test Item Value Reference Range Interpretation Comments POC-GLUCOSE METER 151 mg/dL 70-110 H TESTED AT [place] [address] ([facility]) (test code = [facility] 1538) [address] Comprehensive metabolic [id number] 11:05:00 Test Item Value Reference Range Interpretation Comments Protein, Total (test 7.7 6.0- 8.3 gm/dL code = 2885-2) Albumin (test code = 4.5 g/dL 3.5-5 81237-3) Alkaline Phosphatase 109 U/L 40-150 (test code = 6768-6) Total Bilirubin (test 0.5 mg/dL 0.2-1.2 code = 1974-2) Sodium (test code = 137 meq/L 600-488 6633-2) Potassium (test code = 3.3 meq/L 3.5-5.1 L 3-3) Chloride (test code = 103 meq/L 98-107 2074-0) CO2 (test code = 24 meq/L 22-29 2027-9) BUN (test code = 10 mg/dL 7- 3094-0) Creatinine (test code = 1.02 mg/dL 0.57-1.25 2160-0) Glucose (test code = 160 mg/dL 70-105 H 2345-7) Calcium (test code = 9.1 mg/dL 8.4-10.2 58612-5) AST (test code = 11 U/L 5-34 1920-8) ALT (test code = 15 U/L 6-55 1742-6) EGFR (test code = 78 mL/min/1.73 [place] [address]-8) NOT ACCURATE CREATININE CLEARANCE IN PREDICTING GLOMERULAR FILTRATION RATE . ESTIMATED GFR I S NOT APPLICABLE FOR DIALYSIS PATIEN TS. Lab Interpretation Abnormal (test code = 96934-4) [facility] [id number] 11:05:00 Test Item Value Reference Range Interpretation Comments TOTAL PROTEIN 7.7 gm/dL 6.0-8.3 (BEAKER) (test code = 770) ALBUMIN (BEAKER) 4.5 g/dL 3.5-5.0 (test code = 1145) ALKALINE PHOSPHATASE 109 U/L 40-150 (BEAKER) (test code = 346) BILIRUBIN TOTAL 0.5 mg/dL 0.2-1.2 (BEAKER) (test code = 377) SODIUM (BEAKER) (test 137 meq/L 136-145 code = 381) POTASSIUM (BEAKER) 3.3 meq/L 3.5-5.1 L (test code = 379) CHLORIDE (BEAKER) 103 meq/L 98-107 (test code = 382) CO2 (BEAKER) (test 24 meq/L - code = 355) BLOOD UREA NITROGEN 10 mg/dL 7-21 (BEAKER) (test code = 354) CREATININE (BEAKER) 1.02 mg/dL 0.57-1.25 (test code = 358) GLUCOSE RANDOM 160 mg/dL 70-105 H (BEAKER) (test code = 652) CALCIUM (BEAKER) 9.1 mg/dL 8.4-10.2 (test code = 697) AST (SGOT) (BEAKER) 11 U/L 5-34 (test code = 353) ALT (SGPT) (BEAKER) 15 U/L 6-55 (test code = 347) EGFR (BEAKER) (test 78 mL/min/1.73 ESTIMA ALISHA GFR IS code = 1092) sq m NOT ACCURATE CREATININE CLEARANCE IN PREDICTING GLOMERULAR FILTRATION RATE . ESTIMATED GFR I S NOT APPLICABLE FOR DIALYSIS PATIEN TS. CBC with platelet count + automated [id number] 10:43:00 Test Item Value Reference Range Interpretation Comments WBC (test code = 6690-2) 7.4 3.5- 10.5 K/L RBC (test code = 789-8) 5.09 4.63- 6.08 M/L MCHC (test code = 786-4) 31.6 32.3- 36.5 GM/DL L Hematocrit (test code = 4544-3) 42.7 % 40.1-51 MCV (test code = 787-2) 83.9 fL 79-92.2 MCH (test code = 785-6) 26.5 pg 25.7-32.2 RDW (test code = 788-0) 14.5 % 11.6-14.4 H Platelets (test code = 777-3) 225 150- 450 K/CU MM MPV (test code = 81123-0) 10.3 fL 9.4-12.4 nRBC (test code = 413) 0 0- 0 /100 WBC % Neutros (test code = 429) 74 % % Lymphs (test code = 430) 18 % % Monos (test code = 431) 6 % % Eos (test code = 432) 1 % % Baso (test code = 437) 1 % # Neutros (test code = 670) 5.48 1.78- 5.38 K/L H # Lymphs (test code = 414) 1.37 1.32- 3.57 K/L # Monos (test code = 415) 0.47 0.30- 0.82 K/L # Eos (test code = 416) 0.04 0.04- 0.54 K/L # Baso (test code = 417) 0.05 0.01- 0.08 K/L Immature Granulocytes-Relative 0 % 0-1 (test code = 2801) Lab Interpretation (test code = Abnormal 02049-1) [facility] & AUTO [id number] 10:43:00 Test Item Value Reference Range Interpretation Comments WHITE BLOOD CELL COUNT (BEAKER) 7.4 K/ L 3.5-10.5 (test code = 775) RED BLOOD CELL COUNT (BEAKER) 5.09 M/ L 4.63-6.08 (test code = 761) HEMOGLOBIN (BEAKER) (test code = 13.5 GM/DL 13.7-17.5 L 410) HEMATOCRIT (BEAKER) (test code = 42.7 % 40.1-51.0 411) MEAN CORPUSCULAR VOLUME (BEAKER) 83.9 fL 79.0-92.2 (test code = 753) MEAN CORPUSCULAR HEMOGLOBIN 26.5 pg 25.7-32.2 (BEAKER) (test code = 751) MEAN CORPUSCULAR HEMOGLOBIN CONC 31.6 GM/DL 32.3-36.5 L (BEAKER) (test code = 752) RED CELL DISTRIBUTION WIDTH 14.5 % 11.6-14.4 H (BEAKER) (test code = 412) PLATELET COUNT (BEAKER) (test 225 K/CU MM 150-450 code = 756) MEAN PLATELET VOLUME (BEAKER) 10.3 fL 9.4-12.4 (test code = 754) NUCLEATED RED BLOOD CELLS 0 /100 WBC 0-0 (BEAKER) (test code = 413) NEUTROPHILS RELATIVE PERCENT 74 % (BEAKER) (test code = 429) LYMPHOCYTES RELATIVE PERCENT 18 % (BEAKER) (test code = 430) MONOCYTES RELATIVE PERCENT 6 % (BEAKER) (test code = 431) EOSINOPHILS RELATIVE PERCENT 1 % (BEAKER) (test code = 432) BASOPHILS RELATIVE PERCENT 1 % (BEAKER) (test code = 437) NEUTROPHILS ABSOLUTE COUNT 5.48 K/ L 1.78-5.38 H (BEAKER) (test code = 670) LYMPHOCYTES ABSOLUTE COUNT 1.37 K/ L 1.32-3.57 (BEAKER) (test code = 414) MONOCYTES ABSOLUTE COUNT (BEAKER) 0.47 K/ L 0.30-0.82 (test code = 415) EOSINOPHILS ABSOLUTE COUNT 0.04 K/ L 0.04-0.54 (BEAKER) (test code = 416) BASOPHILS ABSOLUTE COUNT (BEAKER) 0.05 K/ L 0.01-0.08 (test code = 417) IMMATURE GRANULOCYTES-RELATIVE 0 % 0-1 PERCENT (BEAKER) (test code = 2801) POCT-GLUCOSE [id number] 09:38:00 Test Item Value Reference Range Interpretation Comments POC-GLUCOSE METER 101 mg/dL 70-[address] [facility] 6720 (BEAKER) (test code = CYNTHIA Niño [place] 1538) [address] POCT-GLUCOSE [id number] 00:04:00 Test Item Value Reference Range Interpretation Comments POC-GLUCOSE METER 128 mg/dL 70-[address] [facility] 67[facility] (test code = CYNTHIA Niño [place] 1538) [address] ECG 12 [id number] 07:39:32Interface, External Ris In - 11/29/2018 7:39 AM CDTVentricular Rate 66 BPMAtrial Rate 66 BPMP-R Interval 172 msQRS Duration 112 msQ-T Interval 418 msQTC Calculation(Bazett) 438 msP [place] -3 degreesR [place] -30 degreesT [place] -1 degreesNormal sinus rhythmHorizontal axisOtherwise normal ECGNo previous ECGsavailableConfirmed by Perry JOHNSTON MICHAEL (150) on 11/29/2018 7:39:28 [facility] METABOLIC [id number] 07:29:00 Test Item Value Reference Range Interpretation Comments SODIUM (BEAKER) 139 meq/L 136-145 (test code = 381) POTASSIUM (BEAKER) 4.2 meq/L 3.5-5.1 (test code = 379) CHLORIDE (BEAKER) 104 meq/L 98-107 (test code = 382) CO2 (BEAKER) (test 26 meq/L 22-29 code = 355) BLOOD UREA NITROGEN 20 mg/dL 7-21 (BEAKER) (test code = 354) CREATININE (BEAKER) 1.01 mg/dL 0.57-1.25 (test code = 358) GLUCOSE RANDOM 125 mg/dL 70-105 H (BEAKER) (test code = 652) CALCIUM (BEAKER) 9.3 mg/dL 8.4-10.2 (test code = 697) EGFR (BEAKER) (test 79 mL/min/1.73 ESTIMA ALISHA GFR IS code = 1092) sq m NOT ACCURATE CREATININE CLEARANCE IN PREDICTING GLOMERULAR FILTRATION RATE . ESTIMATED GFR I S NOT APPLICABLE FOR DIALYSIS PATIEN TS. POCT-GLUCOSE [id number] 06:08:00 Test Item Value Reference Range Interpretation Comments POC-GLUCOSE METER 128 mg/dL 70-[address] [facility] 6720 (BEAKER) (test code = [place] 1538) [address] Urinalysis w/Microscopic + Reflex to [id number] 01:23:00 Test Item Value Reference Range Interpretation Comments Color, UA (test code = 5778-6) Yellow Clarity, UA (test code = 5767-9) Clear Specific [place], UA (test code = 1.050 1.001-1.035 H 5811-5) pH, UA (test code = 5803-2) 6.0 5.0-8.0 Protein, UA (test code = 83443-1) 20 mg/dL Negative A Glucose, UA (test code = 365) Negative Negative Ketones, UA (test code = 2514-8) 10 mg/dL Negative A Bilirubin, UA (test code = 43417-9) Negative Negative Blood, UA (test code = 49613-1) Negative Negative Nitrite, UA (test code = 5802-4) Negative Negative Leukocytes, UA (test code = 5799-2) Negative Negative Urobilinogen, UA (test code = 0.2 mg/dL 0.2-1 10180-6) RBC, UA (test code = 61030-4) 0 /HPF WBC, UA (test code = 5821-4) 7 /HPF Bacteria, UA (test code = 76418-2) Rare Mucus (test code = 8247-9) Many Specimen Source (test code = 2795) Lab Interpretation (test code = Abnormal 85479-2) [facility]FLEX URINE [id number] 01:23:00 Test Item Value Reference Range Interpretation Comments COLOR (BEAKER) (test code = 470) Yellow CLARITY (BEAKER) (test code = 469) Clear SPECIFIC GRAVITY UA (BEAKER) (test 1.050 1.001-1.035 H code = 468) PH UA (BEAKER) (test code = 467) 6.0 5.0-8.0 PROTEIN UA (BEAKER) (test code = 20 mg/dL Negative A 464) GLUCOSE UA (BEAKER) (test code = Negative Negative 365) KETONES UA (BEAKER) (test code = 10 mg/dL Negative A 371) BILIRUBIN UA (BEAKER) (test code = Negative Negative 462) BLOOD UA (BEAKER) (test code = 461) Negative Negative NITRITE UA (BEAKER) (test code = Negative Negative 465) LEUKOCYTE ESTERASE UA (BEAKER) Negative Negative (test code = 466) UROBILINOGEN UA (BEAKER) (test code 0.2 mg/dL 0.2-1.0 = 463) RBC UA (BEAKER) (test code = 519) 0 /HPF WBC UA (BEAKER) (test code = 520) 7 /HPF BACTERIA (BEAKER) (test code = 517) Rare MUCUS (BEAKER) (test code = 1574) Many SOURCE(BEAKER) (test code = 2795) Hemoglobin [id number] 19:48:00 Test Item Value Reference Range Interpretation Comments Hemoglobin A1C (test code = 4548-4) 6.6 % 4.3-6.1 H Lab Interpretation (test code = Abnormal 43763-7) [facility]HEMOGLOBIN [id number] 19:48:00 Test Item Value Reference Range Interpretation Comments HEMOGLOBIN A1C (BEAKER) (test code = 6.6 % 4.3-6.1 H 368) Lactic acid, [id number] 18:58:00 Test Item Value Reference Range Interpretation Comments Lactate, Venous (test 0.9 mmol/L 0.5-2.2 Specim en slightly code = 2872) hemolyzed Lab Interpretation (test Normal code = 42246-9) [facility]LACT[facility] ACID, [id number] 18:58:00 Test Item Value Reference Range Interpretation Comments LACTATE BLOOD VENOUS 0.9 mmol/L 0.5-2.2 Specime n slightly (2) (BEAKER) (test hemolyzed code = 2872) BASIC METABOLIC [id number] 18:51:00 Test Item Value Reference Range Interpretation Comments SODIUM (BEAKER) 139 meq/L 136-145 (test code = 381) POTASSIUM (BEAKER) 3.6 meq/L 3.5-5.1 (test code = 379) CHLORIDE (BEAKER) 105 meq/L 98-107 (test code = 382) CO2 (BEAKER) (test 25 meq/L 22-29 code = 355) BLOOD UREA NITROGEN 17 mg/dL 7-21 (BEAKER) (test code = 354) CREATININE (BEAKER) 0.91 mg/dL 0.57-1.25 (test code = 358) GLUCOSE RANDOM 92 mg/dL 70-105 (BEAKER) (test code = 652) CALCIUM (BEAKER) 9.6 mg/dL 8.4-10.2 (test code = 697) EGFR (BEAKER) (test 89 mL/min/1.73 ESTIMA ALISHA GFR IS code = 1092) sq m NOT ACCURATE CREATININE CLEARANCE IN PREDICTING GLOMERULAR FILTRATION RATE . ESTIMATED GFR I S NOT APPLICABLE FOR DIALYSIS PATIEN TS. [id number] 18:49:00 Test Item Value Reference Range Interpretation Comments Protime (test code = 13.3 11.9- 14.2 5902-2) seconds INR (test code = 1.1 <=5.9 6301-6) PTT (test code = 31.5 22.5- 36.0 78039-1) seconds MANOHAR (test code = MANOHAR) Effective 08/10/2018: PT Reference Range ChangeNew: 11.9-14.2 Previous: 11.7-14.7 RECOMMENDED COUMADIN/WARFARIN INR THERAPY RANGESSTANDARD DOSE: 2.0-3.0 Includes: PROPHYLAXIS for venous thrombosis, systemic embolization; TREATMENT for venous thrombosis and/or pulmonary embolus.HIGH RISK: Target INR is 2.5-3.5 for patients wiht mechanical heart valves. Lab Interpretation Normal (test code = 81243-0) [facility] HospitalPT/[id number] 18:49:00 Test Item Value Reference Range Interpretation Comments PROTIME (BEAKER) (test code = 13.3 seconds 11.9-14.2 759) INR (BEAKER) (test code = 370) 1.1 <=5.9 PARTIAL THROMBOPLASTIN TIME 31.5 seconds 22.5-36.0 (BEAKER) (test code = 760) Effective 08/10/2018: PT Reference Range ChangeNew: 11.9-14.2 Previous: 11.7- 14.7RECOMMENDED COUMADIN/WARFARIN INR THERAPY RANGESSTANDARD DOSE: 2.0-3.0 Includes: PROPHYLAXIS for venous thrombosis, systemic embolization; TREATMENT for venous thrombosis and/or pulmonary embolus.HIGH RISK: Target INR is2.5-3.5 for patients wiht mechanical heart valves.CBC W/PLT COUNT & AUTO [id number] 18:35:00 Test Item Value Reference Range Interpretation Comments WHITE BLOOD CELL COUNT (BEAKER) 8.6 K/ L 3.5-10.5 (test code = 775) RED BLOOD CELL COUNT (BEAKER) 5.17 M/ L 4.63-6.08 (test code = 761) HEMOGLOBIN (BEAKER) (test code = 13.7 GM/DL 13.7-17.5 410) HEMATOCRIT (BEAKER) (test code = 43.6 % 40.1-51.0 411) MEAN CORPUSCULAR VOLUME (BEAKER) 84.3 fL 79.0-92.2 (test code = 753) MEAN CORPUSCULAR HEMOGLOBIN 26.5 pg 25.7-32.2 (BEAKER) (test code = 751) MEAN CORPUSCULAR HEMOGLOBIN CONC 31.4 GM/DL 32.3-36.5 L (BEAKER) (test code = 752) RED CELL DISTRIBUTION WIDTH 14.7 % 11.6-14.4 H (BEAKER) (test code = 412) PLATELET COUNT (BEAKER) (test 222 K/CU MM 150-450 code = 756) MEAN PLATELET VOLUME (BEAKER) 10.5 fL 9.4-12.4 (test code = 754) NUCLEATED RED BLOOD CELLS 0 /100 WBC 0-0 (BEAKER) (test code = 413) NEUTROPHILS RELATIVE PERCENT 64 % (BEAKER) (test code = 429) LYMPHOCYTES RELATIVE PERCENT 26 % (BEAKER) (test code = 430) MONOCYTES RELATIVE PERCENT 9 % (BEAKER) (test code = 431) EOSINOPHILS RELATIVE PERCENT 1 % (BEAKER) (test code = 432) BASOPHILS RELATIVE PERCENT 1 % (BEAKER) (test code = 437) NEUTROPHILS ABSOLUTE COUNT 5.53 K/ L 1.78-5.38 H (BEAKER) (test code = 670) LYMPHOCYTES ABSOLUTE COUNT 2.19 K/ L 1.32-3.57 (BEAKER) (test code = 414) MONOCYTES ABSOLUTE COUNT (BEAKER) 0.73 K/ L 0.30-0.82 (test code = 415) EOSINOPHILS ABSOLUTE COUNT 0.07 K/ L 0.04-0.54 (BEAKER) (test code = 416) BASOPHILS ABSOLUTE COUNT (BEAKER) 0.04 K/ L 0.01-0.08 (test code = 417) IMMATURE GRANULOCYTES-RELATIVE 1 % 0-1 PERCENT (BEAKER) (test code = 2801) RAD, CHEST, 1 VIEW, NON [id number] 18:30:00Reason for exam:->SOBShould this be performed at the bedside?->YesFINAL REPORT TECHNIQUE: Frontal view of the chest. INDICATION: SOB. COMPARISON: None. FINDINGS: LINES/TUBES: None. LUNGS: Pulmonary does congestion. No consolidation or pulmonary edema. PLEURA: No pneumothorax or significant pleural effusion. HEART AND MEDIASTINUM: The cardiomediastinal silhouette is within normal limits. SOFT TISSUES AND BONES: Unremarkable. IMPRESSION: Pulmonary venous congestion. Signed: Sebas Araya Verified Date/Time: 11/28/2018 18:30:16 Reading Location: [address] Consult Reading Room XR chest 1 view portable / bedside 2018-11-28 18:30:00Interface, External Ris In - 11/28/2018 6:32 PM CDTFINAL REPORT TECHNIQUE: Frontal view of the chest. INDICATION: SOB. COMPARISON: None. FINDINGS: LINES/TUBES: None. LUNGS: Pulmonary does congestion. No consolidation or pulmonary edema. PLEURA: No pneumothorax or significant pleural effusion. HEART AND MEDIASTINUM: The cardiomediastinal silhouette is within normal limits. SOFT TISSUES AND BONES: Unremarkable. IMPRESSION: Pulmonary venous congestion. Signed: Sebas Araya Verified Date/Time: 11/28/2018 18:30:16 Reading Location: [address] Consult Reading Room [facility] [id number] 09:15:00 Test Item Value Reference Range Interpretation Comments POC-GLUCOSE METER 168 mg/dL 70-[address] [facility] 6720 (BEAKER) (test code = [place] 1538) [address] CBC (Hemogram only)2018-11-25 06:24:00 Test Item Value Reference Range Interpretation Comments WBC (test code = 6690-2) 12.4 3.5- 10.5 K/L H RBC (test code = 789-8) 4.28 4.63- 6.08 M/L L MCHC (test code = 786-4) 30.8 32.3- 36.5 GM/DL L Hematocrit (test code = 4544-3) 37.0 % 40.1-51 L MCV (test code = 787-2) 86.4 fL 79-92.2 MCH (test code = 785-6) 26.6 pg 25.7-32.2 RDW (test code = 788-0) 15.0 % 11.6-14.4 H Platelets (test code = 777-3) 209 150- 450 K/CU MM MPV (test code = 14516-4) 11.2 fL 9.4-12.4 nRBC (test code = 413) 0 0- 0 /100 WBC Lab Interpretation (test code = Abnormal 68876-9) [facility]2018-11-25 06:24:00 Test Item Value Reference Range Interpretation Comments WHITE BLOOD CELL COUNT (BEAKER) 12.4 K/ L 3.5-10.5 H (test code = 775) RED BLOOD CELL COUNT (BEAKER) 4.28 M/ L 4.63-6.08 L (test code = 761) HEMOGLOBIN (BEAKER) (test code = 11.4 GM/DL 13.7-17.5 L 410) HEMATOCRIT (BEAKER) (test code = 37.0 % 40.1-51.0 L 411) MEAN CORPUSCULAR VOLUME (BEAKER) 86.4 fL 79.0-92.2 (test code = 753) MEAN CORPUSCULAR HEMOGLOBIN 26.6 pg 25.7-32.2 (BEAKER) (test code = 751) MEAN CORPUSCULAR HEMOGLOBIN CONC 30.8 GM/DL 32.3-36.5 L (BEAKER) (test code = 752) RED CELL DISTRIBUTION WIDTH 15.0 % 11.6-14.4 H (BEAKER) (test code = 412) PLATELET COUNT (BEAKER) (test 209 K/CU MM 150-450 code = 756) MEAN PLATELET VOLUME (BEAKER) 11.2 fL 9.4-12.4 (test code = 754) NUCLEATED RED BLOOD CELLS 0 /100 WBC 0-0 (BEAKER) (test code = 413) Hepatic function [id number] 05:54:00 Test Item Value Reference Range Interpretation Comments Protein, Total (test code = 2885-2) 6.4 6.0- 8.3 gm/dL Albumin (test code = 07778-2) 3.9 g/dL 3.5-5 Total Bilirubin (test code = 0.5 mg/dL 0.2-1.2 1974-2) Bilirubin, Direct (test code = 0.2 mg/dL 0.1-0.5 1967-7) Alkaline Phosphatase (test code = 91 U/L 40-150 6768-6) AST (test code = 1920-8) 13 U/L 5-34 ALT (test code = 1742-6) 21 U/L 6-55 Lab Interpretation (test code = Normal 68410-6) [facility]AT[facility] FUNCTION [id number] 05:54:00 Test Item Value Reference Range Interpretation Comments TOTAL PROTEIN (BEAKER) (test code = 6.4 gm/dL 6.0-8.3 770) ALBUMIN (BEAKER) (test code = 1145) 3.9 g/dL 3.5-5.0 BILIRUBIN TOTAL (BEAKER) (test code 0.5 mg/dL 0.2-1.2 = 377) BILIRUBIN DIRECT (BEAKER) (test 0.2 mg/dL 0.1-0.5 code = 706) ALKALINE PHOSPHATASE (BEAKER) (test 91 U/L 40-150 code = 346) AST (SGOT) (BEAKER) (test code = 13 U/L 5-34 353) ALT (SGPT) (BEAKER) (test code = 21 U/L 6-55 347) BASIC METABOLIC [id number] 05:54:00 Test Item Value Reference Range Interpretation Comments SODIUM (BEAKER) 138 meq/L 136-145 (test code = 381) POTASSIUM (BEAKER) 4.0 meq/L 3.5-5.1 (test code = 379) CHLORIDE (BEAKER) 104 meq/L 98-107 (test code = 382) CO2 (BEAKER) (test 27 meq/L 22-29 code = 355) BLOOD UREA NITROGEN 18 mg/dL 7-21 (BEAKER) (test code = 354) CREATININE (BEAKER) 0.94 mg/dL 0.57-1.25 (test code = 358) GLUCOSE RANDOM 150 mg/dL 70-105 H (BEAKER) (test code = 652) CALCIUM (BEAKER) 9.1 mg/dL 8.4-10.2 (test code = 697) EGFR (BEAKER) (test 85 mL/min/1.73 ESTIMA ALISHA GFR IS code = 1092) sq m NOT ACCURATE CREATININE CLEARANCE IN PREDICTING GLOMERULAR FILTRATION RATE . ESTIMATED GFR I S NOT APPLICABLE FOR DIALYSIS PATIEN TS. POCT-GLUCOSE [id number] 21:38:00 Test Item Value Reference Range Interpretation Comments POC-GLUCOSE METER 172 mg/dL 70-[address] [facility] 67[address] (BEAKER) (test code = [place] 1538) [address] [place], [id number] 15:46:00Reason for exam:->Chest pain after ESDFINAL REPORT EXAM: Single contrast esophagram. INDICATION: 47-year-old man with chest pain after endoscopic submucosal dissection. COMPARISON: None. IMPRESSION:No evidence of esophageal leak. Contour irregularity of the distal esophagus may be related to postprocedural changes a nd/or reported Remy's esophagus. Please refer to endoscopy report for further details. Signed: Noah Khan MDReport Verified Date/Time: 11/24/2018 15:46:32 Reading Location: [address] Radiology Reading Room [place] [id number] 15:46:00Interface, External Ris In - 11/24/2018 4:00 PM CDTFINAL REPORT EXAM: Singlecontrast esophagram. INDICATION: 47-year-old man with chest pain after endoscopic submucosal dissecti on. COMPARISON: None. IMPRESSION:No evidence of esophageal leak. Contour irregularity of the distalesophagus may be related to postprocedural changes and/or reported Remy's esophagus. Please referto endoscopy report for further details. Signed: Noah Khan MDReport Verified Date/Time: 11/24/2018 15:46:32 Reading Location: [address] Radiology Reading [facility] [id number] 11:56:00 Test Item Value Reference Range Interpretation Comments POC-GLUCOSE METER 136 mg/dL 70-[address] [facility] [address] ([facility]) (test code = [place]ño [facility] 1538) [id number] POCT-GLUCOSE [id number] 07:17:00 Test Item Value Reference Range Interpretation Comments POC-GLUCOSE METER 115 mg/dL 70-[address] [facility] [address] ([facility]) (test code = [place]ño [facility] 1538) [address] POCT-GLUCOSE [id number] 13:20:00 Test Item Value Reference Range Interpretation Comments POC-GLUCOSE METER 86 mg/dL 70-[address] [facility] [address] ([address] [facility]) (test code = VANE MANE BLDG A 1538) [facility] [id number]
[2019-11-06] MEDS ORDERED: KETOROLAC 30 MG/ML INJ ONE (10:20)
[2019-11-06] MEDS ORDERED: ONDANSETRON 4 MG/2 ML VIAL ONE (10:20)
[2019-11-06] MEDS ORDERED: NA CHLORIDE 0.9% 1,000 ML ONE (10:20)
[2019-11-06 11:02] LABS: Absolute Lymphocytes (CBC) 0.5 K/uL (0.7-4.9); Basophils % 0.6 % (0-1.3); Hematocrit 37.7 % (39.6-49.0); MPV 8.6 fL (7.6-11.3); RBC Red Blood Cell Count 4.47 M/uL (4.33-5.43)
--- NOTE | 2019-11-06 11:15 | RAD REPORT ---
EXAM DESCRIPTION: CT - Stone Protocol - 11/06/2019 10:17 am CLINICAL HISTORY: Flank pain. left flank pain COMPARISON: No comparisons TECHNIQUE: Axial images were obtained without oral or IV contrast. Lack of contrast limits solid org an and vascular assessment. The [id number] spans the entirety of the system partially obscuring uppermost abdomen and lung bases. Coronal reformatted images were obtained and reviewed. All CT scans are performed using dose optimization technique as appropriate and may include automated exposure control or mA/KV adjustment according to patient size. FINDINGS: Emphysematous lung bases are seen with a 17 x 10 mm noncalcified nodule in the medial righ t posterior gutter. Imaged portions of the liver and spleen show no suspicious findings on non-contrast imaging. The panc reas and adrenal glands are normal. No pathologic lymphadenopathy in the abdomen or pelvis. 2 mm left UVJ stone is present with moderate left hydronephrosis. No right-sided stone or hydronephro sis. No bowel obstruction, free air, free fluid or abscess. Moderate stool is present in the colon. Moderate lumbosacral degenerative changes. IMPRESSION: 2 mm left UVJ stone is present with moderate left hydronephrosis. Noncalcified 17 x 10 mm nodule medial right posterior gutter with spiculated margins. This certainly could be an early lung carcinoma and follow-up PET-CT would be recommended to evaluate for metabolic activity.
[2019-11-06 11:30] LABS: Urine White Blood Cell Casts OK
[2019-11-06 11:34] LABS: Blood Morphology Comment NOT SEEN (NOT SEEN); Platelet Estimate ADEQ
[2019-11-06 11:36] LABS: ALT/SGPT 13 U/L (12-78); AST/SGOT 9 U/L (15-37); Albumin 2.7 g/dL (3.4-5.0); Alkaline Phosphatase 52 U/L (45-117); BUN Blood Urea Nitrogen 19 mg/dL (7-18); Bicarbonate 25 mmol/L (21-32); Bilirubin Direct 0.2 mg/dL (0-0.2); Bilirubin Total 0.7 mg/dL (0.2-1.0); Glucose Level 107 mg/dL (74-106); Lipase 49 U/L (73-393); Protein, Total 5.4 g/dL (6.4-8.2); Sodium Level 146 mmol/L (136-145)
[2019-11-06 11:38] LABS: Potassium 2.9 mmol/L (3.5-5.1)
[2019-11-06] MEDS ORDERED: TAMSULOSIN 0.4 MG SR CAP ONE (11:49)
[2019-11-06] MEDS ORDERED: MAGNESIUM SULFATE 1 gm IVPB 1 GM/100 ML BAG IV ONE (11:50)
[2019-11-06 13:15] LABS: Urine Blood 3+ (NEG); Urine Glucose NEGATIVE (NEG); Urine Protein NEGATIVE (NEG); Urine pH 7.5 (5.0-7.0)
[2019-11-06 13:29] LABS: Urine Amorphous Sediment 2+ /HPF (NONE SEEN); Urine Bacteria <20 /HPF (NONE SEEN); Urine Culture Reflex Order NOT NEEDED; Urine RBC >50 /HPF (NONE SEEN)
[2019-11-06] MEDS ORDERED: CEFTRIAXONE/SWI 1gm 1 GM/10 ML SYR ONE (13:37)
[2019-11-06 13:57] LABS: Potassium 3.8 mmol/L (3.5-5.1)
--- NOTE | 2019-11-06 14:07 | ER ---
Nurse's Notes [facility] Name: Luke Yin Age: 48 yrs Sex: Male : 1970 Arrival Date: 11/06/2019 Time: 09:50 Bed 18 Private MD: Brandon Xiong T Diagnosis: Calculus of ureter-left Presentation: 11/05 09:54 Chief complaint: Left low back pain that radiates to LLQ and testicles x 2 days. hb Coronavirus screen: At this time, the client does not indicate any symptoms associated with coronavirus-19. Ebola Screen: No symptoms or risks identified at this time. Initial Sepsis Screen: Does the patient meet any 2 criteria? No. Patient's initial sepsis screen is negative. Does the patient have a suspected source of infection? No. Patient's initial sepsis screen is negative. Risk Assessment: Do you want to hurt yourself or someone else? Patient reports no desire to harm self or others. Onset of symptoms was November 05, 2019. 09:54 Method Of Arrival: Ambulatory hb 09:54 Acuity: JERILYN 3 hb Historical: - Allergies: 09:56 No Known Allergies; hb - Home Meds: 09:56 amlodipine oral [Active]; hb - PMHx: 09:56 Hypertension; Esophageal CA; hb - PSHx: 09:56 shoulder - right; esophagectomy; hb - Immunization history:: Adult Immunizations up to date. - Social history:: Smoking status: Patient denies any tobacco usage or history of. Screenin:30 Abuse screen: Denies threats or abuse. Denies injuries from another. Nutritional jr10 screening: No deficits noted. Tuberculosis screening: No symptoms or risk factors identified. Fall Risk IV access (20 points). Assessment: 10:30 General: Appears uncomfortable, Behavior is appropriate for age, restless. Pain: jr10 Complains of pain in left flank Pain radiates to left lower quadrant Pain currently is 8 out of 10 on a pain scale. Quality of pain is described as sharp, shooting, Pain began suddenly, this morning Is continuous. Neuro: No deficits noted. Cardiovascular: No deficits noted. Respiratory: No deficits noted. Airway is patent Respiratory effort is even, unlabored, Respiratory pattern is regular, symmetrical. GI: Abdomen is non-distended, Bowel sounds present X 4 quads. Abd is soft and non tender X 4 quads. Reports lower abdominal pain, cramping, nausea. : Reports pain in left flank(s). EENT: No deficits noted. No signs and/or symptoms were reported regarding the EENT system. Derm: No deficits noted. No signs and/or symptoms reported regarding the dermatologic system. Musculoskeletal: No deficits noted. No signs and/or symptoms reported regarding the musculoskeletal system. Vital Signs: 09:54 BP 143 / 102; Pulse 71; Resp 16; Temp 97.8; Pulse Ox 100% on R/A; Weight 90.72 kg; hb Height 6 ft. 1 in. (185.42 cm); Pain 8/10; 11:27 BP 133 / 83; Pulse 71; Resp 18; Pulse Ox 100% on R/A; jr10 12:57 BP 133 / 83; Pulse 57; Resp 18; Pulse Ox 100% ; jr10 14:23 BP 121 / 86; Pulse 60; Resp 18; Pulse Ox 100% on R/A; Pain 2/10; jr10 09:54 Body Mass Index 26.39 (90.72 kg, 185.42 cm) hb ED Course: 09:50 Patient arrived in ED. mr 09:51 Brandon Xiong MD is Private Physician. mr 09:55 Triage completed. hb 09:56 Arm band placed on. hb 09:57 Ezio Zhang PA is PHCP. cp 09:57 Edy Reeves MD is Attending Physician. cp 09:57 Xiomara Lee, EDGAR is Primary Nurse. jr10 10:17 CT Stone Protocol In Process Unspecified. EDMS 10:30 Patient has correct armband on for positive identification. Placed in gown. Bed in low jr10 position. Call light in reach. Side rails up X2. Pulse ox on. NIBP on. 10:45 Inserted saline lock: 20 gauge in right hand, using aseptic technique. IV is patent, is jr10 intact, with fluids infusing freely, with good blood return, Flushed. 10:56 No provider procedures requiring assistance completed. jr10 12:15 Repeat lab(s) drawn. by nh, sent to lab. Urine collected: clean catch specimen, clear, jp3 thalia colored, EKG done, by ED staff, reviewed by Ezio TOWNSEND. 14:05 Marshal Sampson MD is Referral Physician. cp 14:22 IV discontinued, intact, bleeding controlled, No redness/swelling at site. Pressure jr10 dressing applied. Administered Medications: 10:45 Drug: Zofran (Ondansetron) 4 mg Route: IVP; Site: right hand; jr10 11:21 Follow up: Response: No adverse reaction; Nausea is decreased jr10 10:45 Drug: NS 0.9% 1000 ml Route: IV; Rate: 1 bolus; Site: right hand; jr10 14:22 Follow up: Response: No adverse reaction; IV Status: Completed infusion jr10 10:48 Drug: TORadol - Ketorolac 15 mg Route: IVP; Site: right hand; jr10 11:21 Follow up: Response: No adverse reaction; Pain is decreased jr10 11:41 Drug: Magnesium Sulfate 1 grams Route: IVPB; Infused Over: 30 mins; Site: right hand; jr10 14:21 Follow up: Response: No adverse reaction; IV Status: Completed infusion jr10 11:41 Drug: Flomax 0.4 mg Route: PO; jr10 14:21 Follow up: Response: No adverse reaction jr10 13:20 Drug: Rocephin 1 grams Route: IV; Rate: calculated rate; Site: right hand; jr10 14:21 Follow up: Response: No adverse reaction; IV Status: Completed infusion jr10 14:21 Not Given (not indicated): Potassium Chloride 20 mEq IV at calculated rate once; jr10 administer over 1-2 hours 14:21 Not Given (not indicated): Calcium Gluconate 2 grams IVPB once over 60 mins; (mix in NS jr10 100 mL) Outcome: 14:07 Discharge ordered by . cp 14:22 Discharged to home ambulatory. jr10 14:22 Condition: good 14:22 Discharge instructions given to patient, Instructed on discharge instructions, follow up and referral plans. Demonstrated understanding of instructions, follow-up care, medications, Prescriptions given X 3. 14:29 Patient left the ED. jr10 Signatures: Dispatcher [employer] Sue Hill Corey, PA PA cp Baxter, Heather, RN RN hb Pisarski, Jacob jp3 Xiomara Lee RN RN jr10
--- NOTE | 2019-11-06 14:07 | EDPHYS ---
Physician Documentation [facility] Name: Luke Yin Age: 48 yrs Sex: Male : 1970 Arrival Date: 11/06/2019 Time: 09:50 Bed 18 Private MD: Brandon Xiong T ED Physician Edy Reeves HPI: 11/05 10:10 This 48 yrs old Male presents to ER via Ambulatory with complaints of cp Abdominal Pain, Back Pain. 10:10 The patient complains of pain in the left flank. cp 10:10 The pain radiates to the left mid back, to the left groin. Onset: The symptoms/episode cp began/occurred suddenly, this morning. Associated signs and symptoms: Pertinent positives: nausea, Pertinent negatives: diarrhea, fever, pain radiating to the lower extremities, vomiting. Severity of pain: in the emergency department the pain is unchanged despite EMS interventions. Historical: - Allergies: 09:56 No Known Allergies; hb - Home Meds: 09:56 amlodipine oral [Active]; hb - PMHx: 09:56 Hypertension; Esophageal CA; hb - PSHx: 09:56 shoulder - right; esophagectomy; hb - Immunization history:: Adult Immunizations up to date. - Social history:: Smoking status: Patient denies any tobacco usage or history of. ROS: 10:15 Back: Positive for flank pain, on the left. cp 10:15 Constitutional: Negative for body aches, chills, fever, poor PO intake. cp 10:15 Neck: Negative for pain with movement, pain at rest, stiffness. 10:15 Cardiovascular: Negative for chest pain, palpitations. 10:15 Respiratory: Negative for cough, shortness of breath. 10:15 Abdomen/GI: Positive for nausea, Negative for vomiting, diarrhea, constipation. 10:15 : Negative for difficulty urinating. 10:15 Neuro: Negative for altered mental status, headache, weakness. 10:15 All other systems are negative. Exam: 10:20 Head/Face: Normocephalic, atraumatic. cp 10:20 Constitutional: The patient appears in no acute distress, alert, awake, non-toxic, well developed, well nourished, uncomfortable. 10:20 Eyes: Periorbital structures: appear normal, Conjunctiva: normal, no exudate, no injection, Sclera: no appreciated abnormality, Lids and lashes: appear normal, bilaterally. 10:20 ENT: External ear(s): are unremarkable, Nose: is normal, Mouth: Lips: moist, Oral mucosa: moist, Posterior pharynx: Airway: no evidence of obstruction, patent. 10:20 Chest/axilla: Inspection: normal, Palpation: is normal, no crepitus, no tenderness. 10:20 Cardiovascular: Rate: normal, Rhythm: regular, Edema: is not appreciated. 10:20 Respiratory: the patient does not display signs of respiratory distress, Respirations: normal, no use of accessory muscles, no retractions, labored breathing, is not present, Breath sounds: are clear throughout, no decreased breath sounds. 10:20 Abdomen/GI: Inspection: abdomen appears normal, Bowel sounds: active, all quadrants, Palpation: soft, in all quadrants, moderate abdominal tenderness, in the anterior aspect of left lateral abdomen and posterior aspect of left lateral abdomen, rebound tenderness, is not appreciated, involuntary guarding, is elicited in the anterior aspect of left lateral abdomen and posterior aspect of left lateral abdomen. 10:20 Back: pain, that is moderate, of the left mid back, ROM is normal. 10:20 Skin: no rash present. 10:20 Neuro: Orientation: to person, place \T\ time. Mentation: is normal, Motor: moves all fours, strength is normal. 12:35 ECG was reviewed by the Attending Physician. cp Vital Signs: 09:54 BP 143 / 102; Pulse 71; Resp 16; Temp 97.8; Pulse Ox 100% on R/A; Weight 90.72 kg; hb Height 6 ft. 1 in. (185.42 cm); Pain 8/10; 11:27 BP 133 / 83; Pulse 71; Resp 18; Pulse Ox 100% on R/A; jr10 12:57 BP 133 / 83; Pulse 57; Resp 18; Pulse Ox 100% ; jr10 14:23 BP 121 / 86; Pulse 60; Resp 18; Pulse Ox 100% on R/A; Pain 2/10; jr10 09:54 Body Mass Index 26.39 (90.72 kg, 185.42 cm) hb MDM: 09:59 Patient medically screened. cp 10:30 Differential diagnosis: pyelonephritis, UTI, testicular torsion, diverticulitis, cp pancreatitis, ruptured AAA, dissecting AAA. 11:45 Data reviewed: vital signs, nurses notes, lab test result(s), radiologic studies, CT cp scan. 12:05 ED course: VSS. Pain improved and patient observed resting comfortably in exam room. cp 12:05 ED course: Spoke with nurse who reports concern that initial blood sample was diluted cp and would like to to redraw new BMP to recheck serum potassium and calcium before administering calcium gluconate and potassium. 11/05 10:03 Order name: Basic Metabolic Panel; Complete Time: 11:39 cp 11/05 11:40 Interpretation: Normal except: NA 146; K 2.9; CL 116; GLUC 107; BUN 19; CA 6.6. cp 11/05 10:03 Order name: CBC with Diff; Complete Time: 11:39 cp 11/05 11:20 Interpretation: Normal except: HGB 13.0; HCT 37.7; MCV 84.4; RDW 16.9; JOSE% 86.1; LYM% cp 7.0; LYMA 0.5. 11/05 10:03 Order name: Hepatic Function; Complete Time: 11:39 cp 11/05 10:03 Order name: Lipase; Complete Time: 11:39 cp 11/05 10:03 Order name: Urine Microscopic Only; Complete Time: 14:03 cp 11/05 11:06 Order name: CBC Smear Scan; Complete Time: 11:39 EDMS 11/05 10:03 Order name: CT Stone Protocol; Complete Time: 11:19 cp 11/05 11:58 Order name: BMP; Complete Time: 14:03 jr10 11/05 12:51 Order name: Urine Dipstick--Ancillary (enter results); Complete Time: 14:03 bd 11/05 10:03 Order name: IV Saline Lock; Complete Time: 10:55 cp 11/05 10:03 Order name: Labs collected and sent; Complete Time: 10:55 cp 11/05 11:52 Order name: EKG; Complete Time: 11:52 cp 11/05 11:52 Order name: EKG - Nurse/Tech; Complete Time: 12:22 cp 11/05 12:43 Order name: Labs - recollect needed: BMP; Complete Time: 13:17 bd EC:35 Rate is 51 beats/min. Rhythm is regular. IA interval is normal. QRS interval is cp prolonged at 108 msec. QT interval is normal. T waves are Inverted in lead aVR. Interpreted by me. Reviewed by me. Administered Medications: 10:45 Drug: Zofran (Ondansetron) 4 mg Route: IVP; Site: right hand; jr10 11:21 Follow up: Response: No adverse reaction; Nausea is decreased jr10 10:45 Drug: NS 0.9% 1000 ml Route: IV; Rate: 1 bolus; Site: right hand; jr10 14:22 Follow up: Response: No adverse reaction; IV Status: Completed infusion jr10 10:48 Drug: TORadol - Ketorolac 15 mg Route: IVP; Site: right hand; jr10 11:21 Follow up: Response: No adverse reaction; Pain is decreased jr10 11:41 Drug: Magnesium Sulfate 1 grams Route: IVPB; Infused Over: 30 mins; Site: right hand; jr10 14:21 Follow up: Response: No adverse reaction; IV Status: Completed infusion jr10 11:41 Drug: Flomax 0.4 mg Route: PO; jr10 14:21 Follow up: Response: No adverse reaction jr10 13:20 Drug: Rocephin 1 grams Route: IV; Rate: calculated rate; Site: right hand; jr10 14:21 Follow up: Response: No adverse reaction; IV Status: Completed infusion jr10 14:21 Not Given (not indicated): Potassium Chloride 20 mEq IV at calculated rate once; jr10 administer over 1-2 hours 14:21 Not Given (not indicated): Calcium Gluconate 2 grams IVPB once over 60 mins; (mix in NS jr10 100 mL) Disposition: 14:30 Chart complete. cp 15:01 Co-signature as Attending Physician, Edy Reeves MD I agree with the assessment and kdr plan of care. Disposition: 11/06/19 14:07 Discharged to Home. Impression: Calculus of ureter - left. - Condition is Stable. - Discharge Instructions: Kidney Stones, Renal Colic. - Prescriptions for Tylenol- Codeine #3 300-30 mg Oral Tablet - take 2 tablets by ORAL route every 6 hours As needed; 20 tablet. Zofran 4 mg Oral Tablet - take 1 tablet by ORAL route every 12 hours As needed; 20 tablet. Flomax 0.4 mg Oral Capsule, Sust. Release 24 hr - take 1 capsule by ORAL route once daily 1/2 hour following the same meal each day; 5 capsule. - Medication Reconciliation Form, Thank You Letter, Antibiotic Education, Prescription Opioid Use form. - Follow up: Marshal Sampson MD; When: 2 - 3 days; Reason: pain continues. - Problem is new. - Symptoms have improved. Signatures: Dispatcher [employer] EDMS Michelle Ni Kevin, MD MD kdr Ezio Zhang PA PA Sonya Winston RN RN Xiomara Lee RN RN jr10 Corrections: (The following items were deleted from the chart) 11:40 11:40 Normal except: NA 146; K 2.9; CL 116; GLUC 107; BUN 19. cp cp 14:29 14:07 11/06/2019 14:07 Discharged to Home. Impression: Calculus of ureter - left. jr10 Condition is Stable. Forms are Medication Reconciliation Form, Thank You Letter, Antibiotic Education, Prescription Opioid Use. Follow up: Marshal Sampson; When: 2 - 3 days; Reason: pain continues. Problem is new. Symptoms have improved. cp :11/04 10:20 Constitutional: The patient appears in no acute distress, alert, awake, cp non-toxic, well developed, well nourished, uncomfortable, cp 11/05 21:11/04 10:20 Head/Face: Normocephalic, atraumatic. cp cp 11/05 20:11/04 10:20 Eyes: Periorbital structures: appear normal, Conjunctiva: normal, no cp exudate, no injection, Sclera: no appreciated abnormality, Lids and lashes: appear normal, bilaterally, cp 11/05 20:11/04 10:20 ENT: External ear(s): are unremarkable, Nose: is normal, Mouth: Lips: cp moist, Oral mucosa: moist, Posterior pharynx: Airway: no evidence of obstruction, patent, cp 11/05 20:11/04 10:20 Chest/axilla: Inspection: normal, Palpation: is normal, no crepitus, no cp tenderness, cp 11/05 20:11/04 10:20 Cardiovascular: Rate: normal, Rhythm: regular, Edema: is not appreciated, cpcp 11/05 20:11/04 10:20 Respiratory: the patient does not display signs of respiratory distress, cp Respirations: normal, no use of accessory muscles, no retractions, labored breathing, is not present, Breath sounds: are clear throughout, no decreased breath sounds, cp 11/05 20:11/04 10:20 Abdomen/GI: Inspection: abdomen appears normal, Bowel sounds: active, all cp quadrants, Palpation: soft, in all quadrants, moderate abdominal tenderness, in the anterior aspect of left lateral abdomen and posterior aspect of left lateral abdomen, rebound tenderness, is not appreciated, involuntary guarding, is elicited in the anterior aspect of left lateral abdomen and posterior aspect of left lateral abdomen, cp 11/05 20: 08 10:20 Back: pain, that is moderate, of the left mid back, ROM is normal, cp cp 11/05 20: 08 10:20 Skin: no rash present. cp cp 11/05 20: 08 10:20 Neuro: Orientation: to person, place \T\ time. Mentation: is normal, Motor: cp moves all fours, strength is normal, cp 11/05 21: 12:08 ED course: VSS. Pain improved and patient observed resting comfortably in exam cp room. cp
[2019-11-06] MEDS ORDERED: HYDROCODONE/APAP 7.5/325 MG TAB ONE (14:18)
--- NOTE | 2019-11-07 10:46 | EKG ---
Test Date: 2019-11-06 Test Time: 12:30:48 Credit Collections Specialist: AVIVA MEASUREMENT RESULTS: Intervals: Rate: 51 IN: 158 QRSD: 108 QT: 456 QTc: 420 [place]: P: 22 IN: 158 QRS: 1 T: 27 INTERPRETIVE STATEMENTS: Sinus bradycardia Otherwise normal ECG Compared to ECG 05/06/2018 12:22:03 Sinus rhythm no longer present Electronically Signed On 11-07-19 10:43:40 CDT by Francisco Gilbert
== END 2019-11-06 14:29 | disposition home or self-care (01) ==
LOC: ER 09:48
DX: N20.1 Calculus of ureter (principal); I10 Essential (primary) hypertension; Z85.01 Personal history of malignant neoplasm of esophagus
CPT/HCPCS: 93005; 85025; 80048 ×2; 36415; 80076; 83690; 76377; 74176; J3475; J0696; J7030; J2405; 81003; 81015; 96361; 96365; 96366; 96375; 99284